=== PATIENT | female | born 1955 | race Caucasian/White ===

== ENCOUNTER 2024-01-14 14:26 | Outpatient (CLI) | payer MEDICARE, SELFPAY ==
--- NOTE | 2024-01-14 16:01 | WPDPFTINT ---
PFT Procedure Performed PFT Procedure Performed Plethysmography (Lung Vol) Diffusing Cap (DLCO) Flow Vol Loop Spirometry w/o Bronchodil PFT Interpretation This is a pulmonary function test with spirometry, plethysmography and diffusing capacity. The test was performed and results interpreted in accordance with the 2019 and 2005 ATS/ERS Task Force guidelines respectively using the Global Lung Function Initiative-2012 reference equations. Patient demonstrated good effort and cooperation. Reproducibility criteria were met. The quality of the spirometry maneuver was Grade B. Findings: Spirometry: There is decreased maximal expiratory airflow at all lung volumes with concave expiratory flow tracing. The contour the inspiratory flow tracing is normal. The FVC is 2.31 L, 76% predicted. The FEV1 is 1.31 L, 55% predicted. The FEV1: FVC ratio is 57%. Plethysmography: The total lung capacity is 4.96 L, 95% predicted. The functional residual capacity is 2.22 L, 75% predicted. The residual volume is 2.20 L, 101% predicted. Diffusing capacity: The diffusing capacity unadjusted for hemoglobin and carboxyhemoglobin is 11.1, 52% predicted. The diffusing capacity adjusted for alveolar volume is 2.64, 62% predicted. Impression: There is a moderately severe obstructive abnormality. The lung volumes are normal. The diffusing capacity unadjusted for hemoglobin and carboxyhemoglobin is moderately decreased and remains mildly decreased when adjusted for alveolar volume. There are no prior studies for comparison
== END 2024-01-14 14:27 | disposition home or self-care (01) ==
LOC: ANHPFT 14:28
PROVIDERS: PCP Internal Medicine; Visit Provider Internal Medicine
DX: J44.9 Chronic obstructive pulmonary disease, unspecified (principal)
CPT/HCPCS: 94375; 94726; 94729

== ENCOUNTER 2024-03-02 07:59 | Outpatient (CLI) | payer MEDICARE, SELFPAY ==
--- NOTE | 2024-03-06 18:00 | WPDSIXMINUTE ---
Six Minute Walk Procedure Procedure Performed Pulmonary Stress Test (6 min walk) Six Minute Walk Six Minute Walk: DATE OF SERVICE: 03/02/2024 REQUESTING: Dimitri Parry MD REASON FOR TESTING: COPD SIX MINUTE WALK This test was conducted per ATS guidelines. The patient was breathing room air and did not use a cane or other assist devices while walking. The initial saturation was 95%, and initial heart rate was 68 beats per minute. The patient walked without stopping, completing 365.6 m, 1200 ft. The saturation at the end of testing was 91%, and the heart rate was 89 beats per minute. The dyspnea/fatigue score was 2 at the beginning and at the end of testing. IMPRESSION: This is a normal study. The patient did not require supplemental oxygen with exertion. The distance walked is adequate for the patient's age. Kirsten Brown MD
== END 2024-03-02 08:00 | disposition home or self-care (01) ==
LOC: ANHPFT 08:01
PROVIDERS: PCP Internal Medicine; Visit Provider Internal Medicine
DX: J44.9 Chronic obstructive pulmonary disease, unspecified (principal)
CPT/HCPCS: 94618

== ENCOUNTER 2024-03-17 09:23 | Outpatient (CLI) | payer MEDICARE, SELFPAY ==
--- OUTSIDE RECORDS SUMMARY | 2024-03-24 23:44 | XMS_ITS | Encounter Summary ---
Author Organization [facility] Address [address] [place] [place] [address] Care Team Providers Care Quantitative Analyst Developer Name Role Phone Dimitri Parry MD Primary Care Provider [phone] Encounter Details Date Type Department Care Team (Late st Contact Info) Description 09/10/2022 9:45 AM CDT Office Visit [facility] - Orthopedics [address] [place] [address], [facility] [address] Shai Greene MD [address] [place] [address] OF ORTHOPEDIC SURGERY [place], [place] [id number] Other closed displaced fracture of distal end of right humerus with routine healing, subsequent encounter (Primary Dx) Social History Tobacco Use Types Packs/Day Years Used Date Smoking Tobacco: Every Day Cigarettes Smokeless Tobacco: Never AUDIT-C Answer Date Recorded Q1: How often do you have a drink containing alcohol? Never 04/21/2022 Q2: How many drinks containi ng alcohol do you have on a typical day when you are drinking? Patient does not drink Q3: How often do you have si x or more drinks on one occasion? Never 04/21/2022 Sex and Gender Information Value Date Recorded Sex Assigned at Not on file Gender Identity Not on file Sexual Orientation Not on file documented as of this encounter Progress Notes * Shai Greene MD - 09/10/2022 2:07 PM CDT Orthopaedic Trauma Surgery Clinic Note America Cloud 67 year old female CSN: [id number] Date of service: 09/10/2022 HPI America Cloud is a 67 year old female who had a right distal bicondylar intra-articular transcondylar humerus fracture status post ORIF with olecranon osteotomy She has no new no new complaints today and previously was complaining of lateral hardware pain however today does not appear to be as prominent. Is here for final check out to see if she needs to follow-up and continue physical therapy 09/10/2022 10:26 AM Patient-Reported Satisfaction Current state satisfactory? Yes Prior treatment? Yes - surgery Function since surgery Improved Currently taking narcotics? Yes 09/10/2022 10:27 AM 07/23/2022 10:16 AM 06/25/2022 10:19 AM 05/28/2022 10:00 AM PROMIS Upper Extremity PROMIS UE Function Score 28 (severe dysfunction) 35 (moderate dysfunction) 32 (moderate dysfunction) 32 (moderate dysfunction) 09/10/2022 10:28 AM 07/23/2022 10:17 AM 06/25/2022 10:19 AM 05/28/2022 10:01 AM PROMIS Pain Interference PROMIS PI Score 62 (moderate) 56 (mild) 47 (within normal limits) 47 (within normal limits) Review of Systems A complete organ system review completed and is only significant for . Medical History No past medical history on file. Non-contributory Surgical History Past Surgical History: Procedure Laterality Date ??? HUMERAL FRACTURE REPAIR Right 04/21/2022 Right; OPEN REDUCTION INTERNAL FIXATION (ORIF) RIGHT HUMERUS ??? Osteotomy Right 04/21/2022 Right; OSTEOTOMY HUMERUS Non-contributory MEDICATIONS Current Outpatient Medications on File Prior to Visit Medication Sig Dispense Refill ??? buPROPion SR 12hr (Wellbutrin-SR) 150 MG tablet Take 1 (one) tablet by mouth 2 times daily ??? cyclobenzaprine (Flexeril) 5 MG tablet Take 1 (one) tablet by mouth 3 times daily as needed 20 tablet 0 ??? FLUoxetine (PROzac) 40 MG capsule Take 2 (two) capsules by mouth once daily ??? fluticasone propionate (Flonase) 50 MCG/ACT nasal spray [place] 1 (one) spray into the nose once daily as needed ??? losartan (Cozaar) 100 MG tablet Take 1 (one) tablet by mouth once daily ??? montelukast (Singulair) 10 MG tablet Take 1 (one) tablet by mouth once daily ??? omeprazole (PriLOSEC) 20 MG capsule Take 1 (one) capsule by mouth at bedtime ??? oxybutynin CR 24hr (Ditropan-XL) 10 MG tablet Take 1 (one) tablet by mouth once daily No current facility-administered medications on file prior to visit. Allergies No Known Allergies Family History family history is not on file. Non-contributory Social History Social History Tobacco Use ??? Smoking status: Every Day Types: Cigarettes ??? Smokeless tobacco: Never Substance Use Topics ??? Alcohol use: Not on file Physical Exam There were no vitals taken for this visit. General exam: patient cooperative with exam Constitutional: well developed, well nourished, no acute distress Head: normocephalic, atraumatic ENT: moist oral mucosa Eyes: non-icteric sclera Cardiovascular: regular rate Respiratory: effort normal, no respiratory distress Neurological: awake, AOx4 Psychiatric: no distress, mood and affect normal, behavior normal, judgment and thought content normal. Exam of the right elbow demonstrates excellent range of motion she can flex to 95-100 degrees with extension to -10 and when she pushes it she can get down to -5. There is no hardware irritation except over the olecranon plate the lateral column plate did have some irritation but this has smoothed over given the fact she did develop some HO over this region. Neurovascular exam is intact no issues noted Imaging Results independently reviewed in clinic. XR {fracture is completely healed she has developed some HO over the lateral column which is overlying plates excellent range of motion and maintenance of the ulnar trochlear joint and radiocapitellar joint is noted no hardware issues are present Assessment and Plan No diagnosis found. This is a 67 year old female who is over 6 months status post ORIF right distal humerus fracture 1. Ms. Cloud was counseled as to her diagnosis 2. Images reviewed in office with patient 3. She demonstrated understanding 4. We have discussed herShe will call in the interi she will continue to gain motion for additional2-3 months however takes almost a year before she will max out. 5. I expect her to have some permanent restriction in elbow extension and should gain a few more degrees of flexion currently she is functional 6. 7. She can discontinue physical therapy with her current prescription and then progress to exercises on her own. 8. 9. We will do 10. However the she can return with any questions or concerns. Shai Greene MD 09/10/2022 2:07 PM * Celina Buckner - 09/10/2022 10:02 AM CDT Follow up for a Right distal humerus fracture and was treated with ORIF on 04/23/[address] Greene. Patient was last seen in clinic on 07/23/2022. documented in this encounter Plan of Treatment Not on file documented as of this encounter Visit Diagnoses Diagnosis Other closed displaced fracture of distal end of right humerus with routine healing, subsequent encounter- Primary documented in this encounter Care Teams Quantitative Analyst Developer Relationship Specialty Start Date End Date Dimitri Parry MD PCP - General Internal Medicine 04/21/22 documented as of this encounter
--- OUTSIDE RECORDS SUMMARY | 2024-03-24 23:44 | XMS_ITS | Patient Health Summary ---
Author Organization [facility] Address [address] [place] [address] Care Team Providers Care Assembler Tester Name Role Phone Dimitri Parry MD Primary Care Provider [phone] Note from [facility],non-owned Affiliates and Associated Physician Practices is amultiple site organization consisting of ambulatory clinics and hospital sitesin [place], [place], [place] and [place]. This disclosure is being madepursuant to the Care Everywhere program and may not contain all information available regarding this patient. Last updated 17.[facility] Allergies No known active allergies Medications * Be aware that medications may not be up to date on this document. Alwaysverify current medications with the patient. * buPROPion SR 12hr (Wellbutrin-SR) 150 MG tablet(Started 04/14/2022) Take 1 (one) tablet by mouth 2 times daily * FLUoxetine (PROzac) 40 MG capsule(Started 04/12/2022) Take 2 (two) capsules by mouth once daily * fluticasone propionate (Flonase) 50 MCG/ACT nasal spray [place] 1 (one) spray into the nose once daily as needed * losartan (Cozaar) 100 MG tablet(Started 03/04/2022) Take 1 (one) tablet by mouth once daily * montelukast (Singulair) 10 MG tablet(Started 04/15/2022) Take 1 (one) tablet by mouth once daily * omeprazole (PriLOSEC) 20 MG capsule Take 1 (one) capsule by mouth at bedtime * oxybutynin CR 24hr (Ditropan-XL) 10 MG tablet(Started 04/14/2022) Take 1 (one) tablet by mouth once daily * cyclobenzaprine (Flexeril) 5 MG tablet(Started 04/23/2022) Take 1 (one) tablet by mouth 3 times daily as needed Active Problems Problem Noted Date Diagnosed Date Fall, initial encounter 04/21/2022 Other closed displaced fract ure of distal end of right humerus, initial encounter 04/21/2022 Essential hypertension 04/21/2022 Social History Tobacco Use Types Packs/Day Years Used Date Smoking Tobacco: Every Day Cigarettes Smokeless Tobacco: Never Tobacco Cessation:Ready to Q uit: Not Asked; Counseling Given: Not Answered AUDIT-C Answer Date Recorded Q1: How often [...] on file Sexual Orientation Not on file Last Filed Vital Signs Vital Sign Reading Time Taken Comments Blood Pressure 148/79 04/23/2022 11:47 AM SOCK BOARDER Pulse 74 04/23/2022 11:47 AM SOCK BOARDER Temperature 36.9 ??C (98.4 ??F) 04/23/2022 11:[address] Respiratory Rate 18 04/23/2022 11:47 AM SOCK BOARDER Oxygen Saturation 94% 04/23/2022 11:47 AM SOCK BOARDER Inhaled Oxygen Concentration - - Weight 77.1 kg (170 lb) 07/23/2022 10:13 AM CDT Height 165.1 cm (5' 5 ) 04/30/2022 9:32 AM SOCK BOARDER Body Mass Index 28.29 04/30/2022 9:32 AM SOCK BOARDER Medical Devices Implanted Type Area Peanut Picker Device Identifier Shelf Expiration Date Model / Serial / Lot Pin Fx 50mm 1.5mm Spn Plla Rsrb Slf Implanted:Qty: 2 on 04/21/2022 by Shai Greene MD at [facility] Right: Humerus [employer] Lynnette 08/29/2026 [id number] / / [id number] 3.5mm Screw 26mm Implanted:Qty: 1 on 04/21/2022 by Shai Greene MD at [facility] Right: Humerus [employer] [id number] / / 3.5mm Screw 20mm Implanted:Qty: 1 on 04/21/2022 by Shai Greene MD at [facility] Right: Humerus [employer] [id number] / / 3.5mm Screw 26mm Implanted:Qty: 1 on 04/21/2022 by Shai Greene MD at [facility] Right: Humerus [employer] [id number] / / 3.5mm Screw 30mm Implanted:Qty: 1 on 04/21/2022 by Shai Greene MD at [facility] Right: Humerus [employer] [id number] / / 3.5mm Screw 32mm Implanted:Qty: 2 on 04/21/2022 by Shai Greene MD at [facility] Right: Humerus [employer] [id number] / / 3.5mm Screw 58mm Implanted:Qty: 1 on 04/21/2022 by Shai Greene MD at [facility] Right: Humerus [employer] [id number] / / Screw 2mm 3mm 18mm T6 Slf-Tap Cortx Evos Implanted:Qty: 1 on 04/21/2022 by Shai Greene MD at [facility] Right: Humerus [employer] [id number] / / 2.0 X 28mm Double Washer Implanted:Qty: 1 on 04/21/2022 by Shai Greene MD at [facility] Right: Humerus [employer] [id number] / / 3.5mm 22mm Screw Implanted:Qty: 1 on 04/21/2022 by Shai Greene MD at [facility] Right: Humerus [employer] [id number] / / Screw 3.5mm 22mm Slf-Tap Cortx Evos Strl Implanted:Qty: 1 on 04/21/2022 by Shai Greene MD at [facility] [id number] / / Screw 2.7mm 4.5mm 28mm T8 2mm Slf-Tap Implanted:Qty: 1 on 04/21/2022 by Shai Greene MD at [facility] [id number] / / Screw 2.7mm 4.5mm 32mm T8 2mm Slf-Tap Implanted:Qty: 1 on 04/21/2022 by Shai Greene MD at [facility] [id number] / / Screw 2.7mm 4.5mm 48mm T7 Slfret Scrdrvr Implanted:Qty: 1 on 04/21/2022 by Shai Greene MD at [facility] [id number] / / Olecranon Plate Implanted:Qty: 1 on 04/21/2022 by Shai Greene MD at [facility] [id number] / / Screw 2mm 3mm 18mm T6 Slf-Tap Cortx Evos Implanted:Qty: 1 on 04/21/2022 by Shai Greene MD at [facility] [id number] / / 2.0 X 28mm Double Washer Implanted:Qty: 1 on 04/21/2022 by Shai Greene MD at [facility] [id number] / / Screw 2mm 3mm 28mm T6 Slfret Scrdrvr Implanted:Qty: 1 on 04/21/2022 by Shai Greene MD at [facility] [id number] / / Plate 9 Hl Lopro Prox Blt Tip Implanted:Qty: 1 on 04/21/2022 by Shai Greene MD at [facility] [employer] [id number] / / Screw 3.5mm 18mm Ft Slf-Tap Hex Lopro Implanted:Qty: 1 on 04/21/2022 by Shai Greene MD at [facility] [employer] [id number] / / Screw 2.7mm 4.5mm 38mm T8 Slf-Tap Cortx Implanted:Qty: 1 on 04/21/2022 by Shai Greene MD at [facility] Right: Humerus [employer] [id number] / / Screw 4mm 20mm Ft Osteopenia [place] Ft Implanted:Qty: 1 on 04/21/2022 by Shai Greene MD at [facility] Right: Humerus [employer] Tra[employer] [id number] / / Screw 3.5mm 22mm Slf-Tap Cortx Evos Strl Implanted:Qty: 1 on 04/21/2022 by Shai Greene MD at [facility] Right: Humerus [employer] [id number] / / Screw 3.5mm 20mm Ft Hex Drv Nlckg Elb Implanted:Qty: 2 on 04/21/2022 by Shai Greene MD at [facility] Right: Humerus [employer] [id number] / / Screw 3.5mm 28mm Ft Nonlock Hex Drv Elb Implanted:Qty: 1 on 04/21/2022 by Shai Greene MD at [facility] Right: Humerus [employer] [id number] / / Rt Small Plate Distal Hum Implanted:Qty: 1 on 04/21/2022 by Shai Greene MD at [facility] Right: Humerus [employer] [id number] / / Explanted Type Area Peanut Picker Device Identifier Shelf Expiration Date Model / Serial / Lot 3.5mm 26mm Screw Explanted:Qty: 1 on 04/21/2022 by Shai Greene MD at [facility] Right: Humerus [employer] [id number] / / Screw 2.7mm 4.5mm 20mm T7 Slfret Scrdrvr Explanted:Qty: 1 on 04/21/2022 by Shai Greene MD at [facility] Right: Humerus [employer] [id number] / / Wire K 1.6mm 6in Hlf Byapoorva Pnt Ss Fx Explanted:Qty: 1 on 04/21/2022 by Shai Greene MD at [facility] Right: Humerus [employer] [id number] / / Procedures * XR ELBOW RIGHT 3VW OR MORE(Performed 09/10/2022) Performed for Other closed displaced fracture of distal end of right humerus with routine healing, subsequent encounter * XR ELBOW RIGHT 3VW OR MORE(Performed 07/23/2022) Performed for Other closed displaced fracture of distal end of right humerus, initial encounter * XR ELBOW RIGHT 3VW OR MORE(Performed 06/25/2022) Performed for Other closed displaced fracture of distal end of right humerus with routine healing, subsequent encounter * XR ELBOW RIGHT 3VW OR MORE(Performed 05/28/2022) Performed for Other closed displaced fracture of distal end of right humerus with routine healing, subsequent encounter * XR ELBOW RIGHT 3VW OR MORE(Performed 04/30/2022) Performed for Other closed displaced fracture of distal end of right humerus, initial encounter * XR ELBOW RIGHT 2VW(Performed 04/23/2022) Performed for Fall, initial encounter * CBC W/O DIFFERENTIAL(Performed 04/23/2022) Performed for Fall, initial encounter * BASIC METABOLIC PANEL (CALCIUM TOTAL)(Performed 04/22/2022) Performed for Fall, initial encounter * CBC W/O DIFFERENTIAL(Performed 04/22/2022) Performed for Fall, initial encounter * BLOOD TYPE VERIFICATION(Performed 04/21/2022) * XR ELBOW RIGHT 3VW OR MORE(Performed 04/21/2022) Performed for Fall, initial encounter * FL AMBER SURGERY(Performed 04/21/2022) Performed for Other closed displaced fracture of distal end of right humerus, initial encounter * PERIPHERAL BLOCK(Performed 04/21/2022) * RI OSTEOTOMY HUMERUS(Performed 04/21/2022) Performed for Closed fracture of distal end of right humerus, unspecified fracture morphology, initial encounter * OPEN REDUCTION INTERNAL FIXATION (ORIF) HUMERUS(Performed 04/21/2022) Performed for Closed fracture of distal end of right humerus, unspecified fracture morphology, initial encounter * ENDOTRACHEAL TUBE NOTE(Performed 04/21/2022) * CT ELBOW RIGHT WO CONTRAST(Performed 04/21/2022) Performed for Other closed displaced fracture of distal end of right humerus, initial encounter * XR CHEST 1VW PORTABLE(Performed 04/21/2022) Performed for Fall, initial encounter * TYPE + SCREEN PANEL(Performed 04/21/2022) Performed for Fall, initial encounter * PTT [facility](Performed 04/21/2022) Performed for Fall, initial encounter * PT-INR [facility](Performed 04/21/2022) Performed for Fall, initial encounter * BASIC METABOLIC PANEL (CALCIUM TOTAL)(Performed 04/21/2022) Performed for Fall, initial encounter * CBC W/O DIFFERENTIAL(Performed 04/21/2022) Performed for Fall, initial encounter * ED MODERATE SEDATION(Performed 04/21/2022) Performed for Fall, initial encounter, Other closed displaced fracture of distal end of right humerus, initial encounter, Essential hypertension * XR ELBOW RIGHT 2VW(Performed 04/21/2022) Performed for Fall, initial encounter * XR STRESS ANY JOINT(Performed 04/21/2022) Performed for Fall, initial encounter * XR HUMERUS RIGHT 2VW OR MORE(Performed 04/21/2022) Performed for Fall, initial encounter * XR ELBOW RIGHT 2VW(Performed 04/21/2022) Performed for Fall, initial encounter Results * XR ELBOW RIGHT 3VW OR MORE (09/10/2022 9:59 AM CDT) Only the most recent of6 resultswithin the time period is included. Anatomical Region Laterality Modality Upper Extremity Radiographic Davida ging 09/10/2022 9:59 AM CDT Impressions 09/10/2022 10:44 AM CDT IMPRESSION: Unchanged osseous alignment. Report dictated by Alex Orozco MD (radiology interventional physician). I, Benjamin Barillas MD have personally reviewed and interpreted this examination/study. > Interpreting Provider: Benjamin Barillas MD on 09/10/2022 10:44 AM Narrative 09/10/2022 10:44 AM CDT PROCEDURE: ??XR ELBOW RIGHT 3VW OR MORE, DATE/TIME OF EXAM: ??09/10/2022 9:59 AM, LOCATION ??[facility] INDICATION: S42.491D: Other closed displaced fracture of distal end of right humerus with routine healing, subsequent encounter ADDITIONAL CLINICAL INFORMATION: Ordering Provider Reason For Exam: ??fracture Technologist Note: Additional: COMPARISON: Elbow radiograph dated 07/23/2022 FINDINGS: Fracture of the distal humerus status post posterior and medial plate and screw fixation is redemonstrated unchanged alignment. Proximal ulnar fracture status post plate and screw fixation is unchanged in alignment. The hardware is intact. ?? Soft tissue swelling has decreased since the prior study. Procedure Note Benjamin Barillas MD - 09/10/2022 PROCEDURE: XR ELBOW RIGHT 3VW OR MORE, DATE/TIME OF EXAM: 39:59 AM, LOCATION [facility] INDICATION: S42.491D: Other closed displaced fracture of distal end of right humerus with routine healing, subsequent encounter ADDITIONAL CLINICAL INFORMATION: Ordering Provider Reason For Exam: fracture Technologist Note: Additional: COMPARISON: Elbow radiograph dated 07/23/2022 FINDINGS: Fracture of the distal humerus status post posterior and medial plateand screw fixation is redemonstrated unchanged alignment. Proximal ulnar fracture status post plate and screw fixation is unchanged in alignment. The hardware is intact. Soft tissue swelling has decreased since the prior study. IMPRESSION: Unchanged osseous alignment. Report dictated by Alex Orozco MD (radiology interventional physician). I, Benjamin Barillas MD have personally reviewed and interpreted this examination/study. > Interpreting Provider: Benjamin Barillas MD on 09/10/2022 10:44 AM Shai Greene MD DIAGNOSTIC IMAGING O RDERABLES * XR ELBOW RIGHT 2VW (04/23/2022 8:53 AM SOCK BOARDER) Only the most recent of3 resultswithin the time period is included. Anatomical Region Laterality Modality Upper Extremity Radiographic Davida ging 04/24/2022 10:4 0 AM SOCK BOARDER Narrative 04/24/2022 2:24 PM SOCK BOARDER PROCEDURE: ??XR ELBOW RIGHT 2VW, DATE/TIME OF EXAM: ??04/23/2022 8:54 AM, LOCATION ??[facility] INDICATION: W19.XXXA: Fall, initial encounter COMPARISON: Multiple prior right elbow radiographs most recently dated 04/21/2022 FINDINGS/IMPRESSION: Cast/splint is present which limits evaluation of the fine bony and soft tissue details. Redemonstration of the comminuted intra-articular fracture of the distal humerus involving the trochlea and capitellum status post reduction and fixation using multiple plates and screws. Hardware appears intact. Alignment is unchanged. Posterior surgical leighann are again seen. Surgical drain has been removed. Report dictated by Víctor Jaramillo MD, MD (radiology interventional physician). Chema Oro MD have personally reviewed and interpreted this examination/study. > Interpreting Provider: Chema Grady MD on 04/24/2022 2:24 PM Procedure Note Sheree Grady MD - 04/24/2022 PROCEDURE: XR ELBOW RIGHT 2VW, DATE/TIME OF EXAM: 04/23/2022 8:54 AM, LOCATION [facility] INDICATION: W19.XXXA: Fall, initial encounter COMPARISON: Multiple prior right elbow radiographs most recently dated 04/21/2022 FINDINGS/IMPRESSION: Cast/splint is present which limits evaluation of the fine bony and soft tissue details. Redemonstration of the comminuted intra-articular fracture of the distal humerus involving the trochlea and capitellum status post reduction and fixation using multiple plates and screws. Hardware appears intact. Alignment is unchanged. Posterior surgical leighann are again seen.Surgical drain has been removed. Report dictated by Víctor Jaramillo MD, MD (radiology interventional physician). Chema Oro MD have personally reviewed and interpreted this examination/study. > Interpreting Provider: Chema Grady MD on 04/24/2022 2:24 PM Shai Pang MD DIAGNOSTIC IMAGING O RDERABLES * (ABNORMAL) CBC W/O DIFFERENTIAL (04/23/2022 3:29 AM SOCK BOARDER) Only the most recent of3 resultswithin the time period is included. WBC 9.5 3.5 - 10.5 10? 3 /uL 04/23/2022 3:53 AM [facility] RBC 3.39(L) 3.80 - 5.20 10? 6 /uL 04/23/2022 3:53 AM [facility] Hemoglobin 9.8(L) 12.0 - 15.6 g/dL 04/23/2022 3:53 AM [facility] Hematocrit 30.7(L) 35.0 - 45.0 % 04/23/2022 3:53 AM [facility] MCV 90.6 80.7 - 98.3 fL 04/23/2022 3:53 AM [facility] MCH 28.9 26.7 - 34.0 pg 04/23/2022 3:53 AM [facility] MCHC 31.9 30.8 - 35.9 g/dL 04/23/2022 3:53 AM [facility] RDW-SD 46.1 36.0 - 50.0 fL 04/23/2022 3:53 AM [facility] RDW-CV 14.0 11.2 - 14.8 % 04/23/2022 3:53 AM [facility] Platelet Count 200 150 - 400 10? 3 /uL 04/23/2022 3:53 AM [facility] MPV 9.8 9.4 - 12.9 fL 04/23/2022 3:53 AM [facility] nRBC Absolute 0.00 0 10? 3 /uL 04/23/2022 3:53 AM [facility] nRBC Auto 0.0 0 /100 WBC 04/23/2022 3:53 AM [facility] Blood BLOOD SPECIMEN / Unknown Lab Venipuncture / Unknown 04/23/2022 3:29 AM SOCK BOARDER 04/23/2022 3:39 AM [facility] Felton Donahue MD LAB - HEMATOLOGY ORD ERABLES Performing Organization Address [facility]/State/ZIP Co de Phone Number [facility] [address] [place] [id number], [facility] [phone] * (ABNORMAL) BASIC METABOLIC PANEL (CALCIUM TOTAL) (04/22/2022 1:11 AM SOCK BOARDER) Only the most recent of2 resultswithin the time period is included. BUN 14 7 - 26 mg/dL 04/22/2022 2:43 AM [facility] Creatinine 0.67 0.56 - 0.96 mg/dL 04/22/2022 2:43 AM [facility] Sodium 137 136 - 145 mmol/L 04/22/2022 2:43 AM [facility] Potassium 4.3 3.5 - 4.5 mmol/L 04/22/2022 2:43 AM [facility] Chloride 101 98 - 107 mmol/L 04/22/2022 2:43 AM [facility] CO2 24 22 - 29 mmol/L 04/22/2022 2:43 AM [facility] Glucose 196(H) 70 - 115 mg/dL 04/22/2022 2:43 AM [facility] Calcium 8.7 8.4 - 10.2 mg/dL 04/22/2022 2:43 AM [facility] Anion Gap 16 8 - 18 04/22/2022 2:43 AM [facility] BUN/Creatinine Ratio 21 7 - 23 04/22/2022 2:43 AM [facility] Osmolality Calculated 290 270 - 300 mOsm/kg 04/22/2022 2:43 AM [facility] eGFR by CKD-EPI >90 >=90 mL/min/1.7 3 m2 04/22/2022 2:43 AM [facility] Blood BLOOD SPECIMEN / Unknown Lab Venipuncture / Unknown 04/22/2022 1:11 AM SOCK BOARDER 04/22/2022 2:20 AM SOCK BOARDER Felton Donahue MD LAB - CHEMISTRY [facility] GARRETT [address] [address], [facility] [phone] * BLOOD TYPE VERIFICATION (04/21/2022 11:18 PM SOCK BOARDER) ABO Rh A NEG 04/21/2022 11:52 PM SOCK BOARDER [facility] B[facility] LAB Blood Bank BLOOD SPECIMEN / Unknown Lab Venipuncture / Unknown 04/21/2022 11:18 PM SOCK BOARDER 04/21/2022 11:30 PM SOCK BOARDER Denisse Veras MD LAB - BLOOD BANK ORD MOHIT [facility] BLOOD [facility] LAB [address] [place] [id number], [place] [phone] * FL AMBER SURGERY (04/21/2022 7:18 PM SOCK BOARDER) Narrative [facility] RADIOLOGY - 04/21/2022 7:20 PM SOCK BOARDER Fluoroscopy was used for this exam in the OR. Please see the Operative report. Shai Greene MD FLUOROSCOPY ORDERABL ES [facility] RADIOLOGY * Peripheral Nerve Block (04/21/2022 3:41 PM SOCK BOARDER) Narrative Thomas Orta MD - 04/21/2022 3:41 PM SOCK BOARDER Chris Fitzgerald MD ? 04/21/2022 ??3:45 PM Peripheral ??Nerve Block ?? Procedure: Peripheral Nerve Block Patient Location: ??Pre-op Preprocedure Section: ?? Indications: procedure for pain, postop pain management, at patient's request and at surgeon's request. Pre-anesthetic Checklist: Patient identified, IV Checked, Site examined and clear, Risks and benefits discussed, Surgical consent verified, Monitors and equipment, Time-out performed, Informed consent obtained, Pre-op evaluation done, Questions answered/anesthesia questions answered, Allergies reviewed and Removal hand/wrist jewelry Monitors: BP, Pulse Ox and EKG. Patient Condition: ??awake Patient Position: sitting Patient Sedated? ??No Procedure Section ?? Laterality: right Block Performed: ??interscalene Prep: ??Chloraprep Strerile Field: gloves, mask, hat/cap, patient draped and sterile ultrasound sleeve Skin localized with: lidocaine (XYLOCAINE) 1 % injection - Infiltration 1 mL - 04/21/2022 2:26:00 PM Needle Type: ??Echogenic insultaed and Touhbrigid Needle Gauge: ??20 Needle Length: ??100 mm Catheter? Yes Ultrasound Guided? ?? Yes ? Technique: ??in plane ? Visualization: ??Preliminary scan performed, Important anatomical structures identified, Needle tip visualized throughout the procedure, Target identified, No intraneural or intravascular puncture occurred, Ultrasound image in chart, Local visualized surrounding nerve on ultrasound and Hydrodissection utilized Injection was made incrementally with constant monitoring and aspirations every 5 mL's Injection Assessment: ?? Slow fractionated injection Block Agents or Additives used? Yes Block agents used: bupivacaine PF (MARCAINE PF) 0.25 % injection - Infiltration 15 mL - 04/21/2022 2:35:00 PM lidocaine (XYLOCAINE) 2 % injection - Infiltration 5 mL - 04/21/2022 2:35:00 PM Procedure Tolerance: tolerated well Assessment: completed Procedure Start Time: 04/21/2022 2:26 PM. Procedure End Time: 04/21/2022 2:40 PM. Procedure Total Time: 14 ??minutes. Staff Section ? Anesthesia Provider: Thomas Orta MD, Performed the procedure ? Provider #1: Chris Fitzgerald MD, Performed the procedure. Thomas Orta MD GENERAL ANESTHESIA O RDERABLES * ETT LINE PERFORMABLE (04/21/2022 3:03 PM SOCK BOARDER) Narrative Thomas Orta MD - 04/21/2022 3:03 PM SOCK BOARDER Juan Dorsey V., DO ? 04/21/2022 ??3:15 PM Endotracheal Tube Placement: ? Patient Location: OR. Intubation Event Date/Time: ??04/21/2022 3:03 PM Procedure: intubation (89701). Procedure Section: ?? Sedation: under general anesthesia. Indications for Airway Management: ??anesthesia Procedure pretreatments used? ??No Induction: standard IV Patient Position: ??supine Mask Ventilation: easy. Blade Type: Zachary Blade Size: 3 Laryngoscopy View: grade 2 (partial cords) Intubation Adjuncts: stylet Tube: endotracheal tube Placement: oral Tube type: cuff - inflated Tube Size (MM): 7 Depth of Insertion (CM): 21 Measured From: lips Cuff volume (mL): ??6 Cuff Inflated With: air Number of Attempts: 1. Placement Verified By: direct visualization, bilateral breath sounds, chest auscultation and CO2 monitor CXR Findings: ETT in proper place. Tube secured with: ??adhesive tape. Dentition unchanged? ??Yes Difficult Airway? ??No. Procedure Start Time: 04/21/2022 3:03 PM. Staff Section ? Provider #1: Parag Schroeder DO, Performed the procedure. Thomas Orta MD GENERAL ANESTHESIA O RDERABLES * CT ELBOW RIGHT WO CONTRAST (04/21/2022 6:36 AM SOCK BOARDER) Anatomical Region Laterality Modality Upper Extremity Computed Tomogra phy 04/21/2022 6:45 AM SOCK BOARDER Impressions 04/21/2022 8:33 AM SOCK BOARDER IMPRESSION: 1.Comminuted moderately displaced intra-articular fracture of the distal humerus. 2.Suspected small chip fracture at the olecranon process. 3.Mild elbow subluxation. 4.Right rib fracture. > Dictated by Luis Silva MD (radiology interventional physician) I, Benjamin Barillas MD have personally reviewed and interpreted this examination/study. > Interpreting Provider: Benjamin Barillas MD on 04/21/2022 8:33 AM Narrative 04/21/2022 8:33 AM SOCK BOARDER PROCEDURE: ??CT ELBOW RIGHT WO CONTRAST, DATE/TIME OF EXAM: ??04/21/2022 6:36 AM, LOCATION ??[facility] INDICATION: S42.491A: Other closed displaced fracture of distal end of right humerus, initial encounter ADDITIONAL CLINICAL INFORMATION: Ordering Provider Reason For Exam: ??fracture s/p reduction COMPARISON: Right elbow radiograph 04/21/2022 at 2:20 AM. Outside right elbow CT dated 04/20/2022 TECHNIQUE: CT of the right elbow without contrast was performed utilizing standard protocol. FINDINGS: A splint is in place. Comminuted moderately displaced intra-articular fracture of the distal humerus involving the trochlea and capitellum. Alignment is improved compared to the prior CT. A small ossific fragment adjacent to the olecranon process is likely a fracture (series 5 image 82). There is slight ventral subluxation of the radial head relative to the capitellum. Small volume joint effusion is noted. There is surrounding edema. There is high attenuation material within the dorsal subcutaneous tissues compatible with hemorrhage. A right rib fracture is visible (series 4 image 4). Procedure Note Benjamin Barillas MD - 04/21/2022 PROCEDURE: CT ELBOW RIGHT WO CONTRAST, DATE/TIME OF EXAM: 36:36 AM, LOCATION [facility] INDICATION: S42.491A: Other closed displaced fracture of distal end of righthumerus, initial encounter ADDITIONAL CLINICAL INFORMATION: Ordering Provider Reason For Exam: fracture s/p reduction COMPARISON: Right elbow radiograph 04/21/2022 at 2:20 AM. Outside right elbow CTdated 04/20/2022 TECHNIQUE: CT of the right elbow without contrast was performed utilizing standard protocol. FINDINGS: A splint is in place. Comminuted moderately displaced intra-articular fracture of the distal humerus involving the trochlea and capitellum. Alignment is improved compared to the prior CT. A small ossific fragment adjacent to the olecranon process is likely a fracture (series 5 image 82). There isslight ventral subluxation of the radial head relative to the capitellum. Small volume joint effusion is noted. There is surrounding edema. There ishigh attenuation material within the dorsal subcutaneous tissues compatiblewith hemorrhage. A right rib fracture is visible (series 4 image 4). IMPRESSION: 1.Comminuted moderately displaced intra-articular fracture of the distal humerus. 2.Suspected small chip fracture at the olecranon process. 3.Mild elbow subluxation. 4.Right rib fracture. > Dictated by Luis Silva MD (radiology interventional physician) I, Benjamin Barillas MD have personally reviewed and interpreted this examination/study. > Interpreting Provider: Benjamin Barillas MD on 04/21/2022 8:33 AM Felton Donahue MD CT ORDERABLES * XR CHEST 1VW PORTABLE (04/21/2022 6:26 AM SOCK BOARDER) Anatomical Region Laterality Modality Chest Radiographic Davida ging 04/21/2022 6:27 AM SOCK BOARDER Narrative 04/21/2022 8:49 AM SOCK BOARDER PROCEDURE: ??XR CHEST 1VW PORTABLE, DATE/TIME OF EXAM: ??04/21/2022 6:26 AM, LOCATION ??[facility] INDICATION: W19.XXXA: Fall, initial encounter ADDITIONAL CLINICAL INFORMATION: Ordering Provider Reason For Exam: ??fall, right rib pain Comparison: No prior study is available for comparison at the time of this dictation. Findings/Impression: There is mild bibasilar atelectasis. The appearance of mild bilateral peripheral interstitial opacities may be artifactual; attention on follow-up. There is no focal consolidation, pleural effusion, or pneumothorax. The cardiomediastinal silhouette is normal. The visible bony thorax is intact. Suture anchors are present at the right humeral head. Report dictated by Simin Mayes MD (radiology interventional physician). Funmilayo Oro MD have personally reviewed and interpreted this examination/study. > Interpreting Provider: Funmilayo Diaz MD on 04/21/2022 8:49 AM Procedure Note Funmilayo Diaz MD - 04/21/2022 PROCEDURE: XR CHEST 1VW PORTABLE, DATE/TIME OF EXAM: 04/21/2022 6:26AM, LOCATION [facility] INDICATION: W19.XXXA: Fall, initial encounter ADDITIONAL CLINICAL INFORMATION: Ordering Provider Reason For Exam: fall, right rib pain Comparison: No prior study is available for comparison at the time ofthis dictation. Findings/Impression: There is mild bibasilar atelectasis. The appearance of mild bilateral peripheral interstitial opacities may be artifactual; attention on follow-up. There is no focal consolidation, pleural effusion, or pneumothorax. The cardiomediastinal silhouette is normal. The visiblebony thorax is intact. Suture anchors are present at the right humeral head. Report dictated by Simin Mayes MD (radiology interventional physician). Funmilayo Oro MD have personally reviewed and interpreted this examination/study. > Interpreting Provider: Funmilayo Diaz MD on 04/21/2022 8:49 AM Felton Donahue MD DIAGNOSTIC IMAGING O RDERABLES * PTT [facility] (04/21/2022 3:45 AM SOCK BOARDER) APTT 30.1 23.0 - 38.4 Seconds 04/21/2022 4:21 AM SOCK BOARDER [facility] Comment:Suggested therapeuti c range for full dose I.V. unfractionated heparin therapy for venous thromboembolism is 71 to 109 seconds. Blood BLOOD SPECIMEN / Unknown Venipuncture / Unknown 04/21/2022 3:45 AM SOCK BOARDER 04/21/2022 3:54 AM SOCK BOARDER Felton Donahue MD LAB - COAGULATION OR DERABLES [facility] [address] [place] [address], [facility] [phone] * PT-INR [facility] (04/21/2022 3:45 AM SOCK BOARDER) PT 13.5 12.1 - 14.8 Seconds 04/21/2022 4:20 AM [facility] INR 1.0 See Comment 04/21/2022 4:20 AM [facility] Comment:The suggested therap eutic range for standard coumadin (warfarin) therapy is an INR of 2.0-3.0. For high-risk patients (Mechanical Mitral Valve Prosthesis, etc.), the suggested prophylactic therapeutic range is an INR of 2.5-3.5. Blood BLOOD SPECIMEN / Unknown Venipuncture / Unknown 04/21/2022 3:45 AM SOCK BOARDER 04/21/2022 3:54 AM SOCK BOARDER Felton Donahue MD LAB - COAGULATION OR DERABLES Performing Organization Address City/[facility]/ZIP Co de Phone Number [address] [address], [facility] [phone] * TYPE + SCREEN PANEL (04/21/2022 3:45 AM SOCK BOARDER) Antibody Screen NEG 5:04 AM [facility] ABO Rh A NEG 04/21/2022 5:04 AM [facility] Blood Bank BLOOD SPECIMEN / Unknown Venipuncture / Unknown 04/21/2022 3:45 AM SOCK BOARDER 04/21/2022 3:54 AM SOCK BOARDER Felton Donahue MD LAB - BLOOD BANK ORD ERABLES [facility] [address] [place] [address], [facility] [phone] * Moderate Sedation (04/21/2022 2:33 AM SOCK BOARDER) Narrative Felton Donahue MD - 04/21/2022 2:33 AM SOCK BOARDER Felton Donahue MD ? 04/21/2022 ??7:00 AM Moderate Sedation Date/Time: 04/21/2022 2:33 AM Performed by: Felton Donahue MD Authorized by: Felton Donahue MD Consent: ??Consent obtained: ??Verbal and written ??Consent given by: ??Patient ??Risks, benefits, and alternatives were discussed: yes ?Risks discussed: ??Allergic reaction, inadequate sedation, nausea, vomiting, prolonged hypoxia resulting in organ damage, prolonged sedation necessitating reversal and respiratory compromise necessitating ventilatory assistance and intubation ??Alternatives discussed: ??Analgesia without sedation and anxiolysis Healy protocol: ??Procedure explained and questions answered to patient or proxy's satisfaction: yes ?Relevant documents present and verified: yes ?Test results available: yes ?Imaging studies available: yes ?Required blood products, implants, devices, and special equipment available: yes ?Site/side marked: yes ?Immediately prior to procedure, a time out was called: yes ?Patient identity confirmed: ??Verbally with patient and arm band Indications: ??Procedure performed: ??Fracture reduction ??Procedure necessitating sedation performed by: ??Physician performing sedation ??Intended level of sedation: ??Moderate Pre-sedation assessment: ??Time since last food or drink: ??9 hours ??ASA classification: class 2 - patient with mild systemic disease ?Mallampati score: ??II - soft palate, uvula, fauces visible ??Neck mobility: normal ?Pre-sedation assessments completed and reviewed: airway patency, anesthesia/sedation history, cardiovascular function, hydration status, mental status, nausea/vomiting, pain level and respiratory function ?History of difficult intubation: no ?Pre-sedation assessment completed: ??04/21/2022 1:30 AM Immediate pre-procedure details: ??Reassessment: Patient reassessed immediately prior to procedure ?Reviewed: vital signs ?Verified: bag valve mask available, emergency equipment available, intubation equipment available, IV patency confirmed and oxygen available ?? Procedure details (see MAR for exact dosages): ??Sedation start time: ??04/21/2022 1:57 AM ??Preoxygenation: ??Nasal cannula ??Sedation: ??Propofol (ketamine and propofol) ??Intra-procedure monitoring: ??Blood pressure monitoring, monitoring manager, continuous capnometry, continuous pulse oximetry, frequent LOC assessments and frequent vital sign checks ??Intra-procedure events: hypoxia ?Intra-procedure events comment: ??Patient with brief episode of shallow breathing with saturation down to 88 with first medications given, corrected with jaw thrust ??Intra-procedure management: ??Airway repositioning (patient had jaw thrust during brief desaturation) ??Sedation end time: ??04/21/2022 2:27 AM ??Total sedation time (minutes): ??30 Post-procedure details: ??Post-sedation assessment completed: ??04/21/2022 2:37 AM ??Attendance: Constant attendance by certified staff until patient recovered ?Recovery: Patient returned to pre-procedure baseline ?Post-sedation assessments completed and reviewed: airway patency, cardiovascular function, hydration status, mental status, nausea/vomiting, pain level and respiratory function ?Specimens recovered: ??None ??Patient is stable for discharge or admission: yes ?Procedure completion: ??Tolerated well, no immediate complications Felton Donahue MD PROCEDURE/MINOR SURG ICAL ORDERABLES * XR STRESS ANY JOINT (04/21/2022 2:06 AM SOCK BOARDER) Anatomical Region Laterality Modality Lower Extremity, Upper Extremity Radiographic Imaging 04/21/2022 1:46 AM SOCK BOARDER Impressions 04/21/2022 8:44 AM SOCK BOARDER IMPRESSION: Moderately displaced, comminuted fracture of the distal humerus extending from the medial epicondyle to the articular surface. Tiny ossific fragment adjacent to the olecranon may represent tendinous calcification versus a small avulsion fracture. Report dictated by Simin Mayes MD (radiology interventional physician). I, Funmilayo Diaz MD have personally reviewed and interpreted this examination/study. > Interpreting Provider: Funmilayo Diaz MD on 04/21/2022 8:44 AM Narrative 04/21/2022 8:44 AM SOCK BOARDER PROCEDURE: ??XR HUMERUS RIGHT 2VW OR MORE, XR ELBOW RIGHT 2VW, XR STRESS ANY JOINT, DATE/TIME OF EXAM: ??04/21/2022 1:36 AM, LOCATION ??[facility] INDICATION: W19.XXXA: Fall, initial encounter ADDITIONAL CLINICAL INFORMATION: Ordering Provider Reason For Exam: ??Trauma (accession [id number]), Trauma (accession [id number]), trauma (accession [id number]) COMPARISON: None. FINDINGS: Right humerus: There is moderately displaced, comminuted fracture of the distal humerus extending from the medial epicondyle to the articular surface. Suture anchors are present in the humeral head. No dislocation. Bone density and texture are normal. Right elbow: There is moderately displaced, comminuted fracture of the distal humerus extending from the medial epicondyle to the articular surface. A tiny ossific fragment adjacent to the olecranon may represent tendinous calcification versus a small avulsion fracture. The elbow joint alignment is anatomical. No joint effusion is seen. Bone density and texture are normal. Moderate to severe soft tissue swelling is present. Stress: No significant change in alignment with stress. Procedure Note Funmilayo Diaz MD - 04/21/2022 PROCEDURE: XR HUMERUS RIGHT 2VW OR MORE, XR ELBOW RIGHT 2VW, XR STRESSANY JOINT, DATE/TIME OF EXAM: 04/21/2022 1:36 AM, LOCATION [facility] INDICATION: W19.XXXA: Fall, initial encounter ADDITIONAL CLINICAL INFORMATION: Ordering Provider Reason For Exam: Trauma (accession [id number]), Trauma (accession [id number]), trauma (accession [id number]) COMPARISON: None. FINDINGS: Right humerus: There is moderately displaced, comminuted fracture of the distal humerus extending from the medial epicondyle to the articular surface. Suture anchors are present in the humeral head. No dislocation. Bone densityand texture are normal. Right elbow: There is moderately displaced, comminuted fracture of the distal humerus extending from the medial epicondyle to the articular surface. A tiny ossific fragment adjacent to the olecranon may represent tendinous calcification versus a small avulsion fracture. The elbow jointalignment is anatomical. No joint effusion is seen. Bone density and texture are normal. Moderate to severe soft tissue swelling is present. Stress: No significant change in alignment with stress. IMPRESSION: Moderately displaced, comminuted fracture of the distal humerusextending from the medial epicondyle to the articular surface. Tiny ossific fragment adjacent to the olecranon may represent tendinous calcification versus a small avulsion fracture. Report dictated by Simin Mayes MD (radiology interventional physician). Funmilayo Oro MD have personally reviewed and interpreted this examination/study. > Interpreting Provider: Funmilayo Diaz MD on 04/21/2022 8:44 AM Felton Donahue MD DIAGNOSTIC IMAGING O RDERABLES * XR HUMERUS RIGHT 2VW OR MORE (04/21/2022 1:35 AM SOCK BOARDER) Anatomical Region Laterality Modality Upper Extremity Radiographic Davida ging 04/21/2022 1:46 AM SOCK BOARDER Impressions 04/21/2022 8:44 AM SOCK BOARDER IMPRESSION: Moderately displaced, comminuted fracture of the distal humerus extending from the medial epicondyle to the articular surface. Tiny ossific fragment adjacent to the olecranon may represent tendinous calcification versus a small avulsion fracture. Report dictated by Simin Mayes MD (radiology interventional physician). Funmilayo Oro MD have personally reviewed and interpreted this examination/study. > Interpreting Provider: Funmilayo Diaz MD on 04/21/2022 8:44 AM Narrative 04/21/2022 8:44 AM SOCK BOARDER PROCEDURE: ??XR HUMERUS RIGHT 2VW OR MORE, XR ELBOW RIGHT 2VW, XR STRESS ANY JOINT, DATE/TIME OF EXAM: ??04/21/2022 1:36 AM, LOCATION ??[facility] INDICATION: W19.XXXA: Fall, initial encounter ADDITIONAL CLINICAL INFORMATION: Ordering Provider Reason For Exam: ??Trauma (accession [id number]), Trauma (accession [id number]), trauma (accession [id number]) COMPARISON: None. FINDINGS: Right humerus: There is moderately displaced, comminuted fracture of the distal humerus extending from the medial epicondyle to the articular surface. Suture anchors are present in the humeral head. No dislocation. Bone density and texture are normal. Right elbow: There is moderately displaced, comminuted fracture of the distal humerus extending from the medial epicondyle to the articular surface. A tiny ossific fragment adjacent to the olecranon may represent tendinous calcification versus a small avulsion fracture. The elbow joint alignment is anatomical. No joint effusion is seen. Bone density and texture are normal. Moderate to severe soft tissue swelling is present. Stress: No significant change in alignment with stress. Procedure Note Funmilayo Diaz MD - 04/21/2022 PROCEDURE: XR HUMERUS RIGHT 2VW OR MORE, XR ELBOW RIGHT 2VW, XR STRESSANY JOINT, DATE/TIME OF EXAM: 04/21/2022 1:36 AM, LOCATION [facility] INDICATION: W19.XXXA: Fall, initial encounter ADDITIONAL CLINICAL INFORMATION: Ordering Provider Reason For Exam: Trauma (accession [id number]), Trauma (accession [id number]), trauma (accession [id number]) COMPARISON: None. FINDINGS: Right humerus: There is moderately displaced, comminuted fracture of the distal humerus extending from the medial epicondyle to the articular surface. Suture anchors are present in the humeral head. No dislocation. Bone densityand texture are normal. Right elbow: There is moderately displaced, comminuted fracture of the distal humerus extending from the medial epicondyle to the articular surface. A tiny ossific fragment adjacent to the olecranon may represent tendinous calcification versus a small avulsion fracture. The elbow jointalignment is anatomical. No joint effusion is seen. Bone density and texture are normal. Moderate to severe soft tissue swelling is present. Stress: No significant change in alignment with stress. IMPRESSION: Moderately displaced, comminuted fracture of the distal humerusextending from the medial epicondyle to the articular surface. Tiny ossific fragment adjacent to the olecranon may represent tendinous calcification versus a small avulsion fracture. Report dictated by Simin Mayes MD (radiology interventional physician). I, Funmilayo Diaz MD have personally reviewed and interpreted this examination/study. > Interpreting Provider: Funmilayo Diaz MD on 04/21/2022 8:44 AM Felton Donahue MD [facility] Assembler Tester Relationship Specialty Start Date End Date Dimitri Parry MD PCP - General Internal Medicine 04/21/22
--- OUTSIDE RECORDS SUMMARY | 2024-03-24 23:44 | XMS_ITS | Clinical Summary ---
Author Organization [facility] Address [address] [place] [address] Care Team Providers Care Heel Sprayer First Name Role Phone Dimitri Parry MD Primary Care Provider [phone] Source Comments [facility],non-owned Affiliates and Associated Physician Practices is amultiple site organization consisting of ambulatory clinics and hospital sitesin [place], [place], [place] and [place]. This disclosure is being madepursuant to the Care Everywhere program and may not contain all information available regarding this patient. Last updated 17.[facility] [employer] Allergies No known active allergies Medications * Be aware that medications may not be up to date on this document. Alwaysverify current medications with the patient. Medication Sig Dispensed Refills Start Date End Date Status buPROPion SR 12hr (Wellbutrin-SR) 150 MG tablet Take 1 (one) tablet by mouth 2 times daily 04/14/2022 Active FLUoxetine (PROzac) 40 MG capsule Take 2 (two) capsules by mouth once daily 04/12/2022 Active fluticasone propionate (Flonase) 50 MCG/ACT nasal spray [place] 1 (one) spray into the nose once daily as needed Active losartan (Cozaar) 100 MG tablet Take 1 (one) tablet by mouth once daily 03/04/2022 Active montelukast (Singulair) 10 MG tablet Take 1 (one) tablet by mouth once daily 04/15/2022 Active omeprazole (PriLOSEC) 20 MG capsule Take 1 (one) capsule by mouth at bedtime Active oxybutynin CR 24hr (Ditropan-XL) 10 MG tablet Take 1 (one) tablet by mouth once daily 04/14/2022 Active cyclobenzaprine (Flexeril) 5 MG tablet Take 1 (one) tablet by mouth 3 times daily as needed 20 tablet 04/23/2022 Active Active Problems Problem Noted Date Diagnosed Date [...] Comments Blood Pressure 148/79 04/23/2022 11:47 AM PRODUCT DISTRIBUTION SPECIALIST Pulse 74 04/23/2022 11:47 AM PRODUCT DISTRIBUTION SPECIALIST Temperature 36.9 ??C (98.4 ??F) 04/23/2022 11:[address] Respiratory Rate 18 04/23/2022 11:47 AM PRODUCT DISTRIBUTION SPECIALIST Oxygen Saturation 94% 04/23/2022 11:47 AM PRODUCT DISTRIBUTION SPECIALIST Inhaled Oxygen Concentration - - Weight 77.1 kg (170 lb) 07/23/2022 10:13 AM CDT Height 165.1 cm (5' 5 ) 04/30/2022 9:32 AM PRODUCT DISTRIBUTION SPECIALIST Body Mass Index 28.29 04/30/2022 9:32 AM PRODUCT DISTRIBUTION SPECIALIST Plan of Treatment Health Maintenance Due Date Last Done Comments BONE DENSITY TESTING 1956 DENISHA (AGES 45-75) - COL ON CA SCREENING 1956 COLON MONITORING 1956 COLONOSCOPY - COLON CA SCREENING 1956 CT COLONOGRAPHY - COLON CA SCREENING 1956 Colorectal Cancer Screening 1956 FIT - COLON CA SCREENING 1956 FLEX SIG - COLON CA SCREENING 1956 LIPID TESTING 1956 MAMMOGRAM 1956 PNEUMOCOCCAL VACCINE 65+ (1 of 2 - PCV) 1962 HEPATITIS C SCREENING 07/09/1974 DTAP/TDAP/TD VACCINES (1 - Tdap) 07/14/1975 ZOSTER VACCINE (1 of 2) 2006 Respiratory Syncytial Virus (RSV) Vaccine Pt: or over 60 yrs (1 - Risk 60-74 years 1-dose series) 2016 DEPRESSION SCREENING 03/23/2023 COVID-19 VACCINE (1 - 2023-2 5 season) 2023 INFLUENZA VACCINE (#1) 2023 SCREENING FOR DIABETES 04/22/2025 3, 04/21/2022 HEPATITIS B VACCINE Aged Out No longe r eligible based on patient's age to complete this topic HIB VACCINE Aged Out No longer eligi ble based on patient's age to complete this topic HPV VACCINE Aged Out No longer eligi ble based on patient's age to complete this topic MENINGOCOCCAL VACCINE Aged Out No ana laura manuela eligible based on patient's age to complete this topic Medical Devices Implanted Type Area Accessibility Lift Technician Device Identifier Shelf Expiration Date Model / Serial / Lot Pin Fx 50mm 1.5mm Spn Plla Rsrb Slf Implanted:Qty: 2 on 04/21/2022 by Shai Greene MD at [facility] Right: Humerus [employer] Lynnette 08/29/2026 [id number] / / [id number] 3.5mm Screw 26mm Implanted:Qty: 1 on 04/21/2022 by Shai Greene MD at [facility] Right: Humerus [employer] [id number] / / 3.5mm Screw 20mm Implanted:Qty: 1 on 04/21/2022 by Shai Greene MD at [facility] Right: Humerus [employer] [id number] / / 3.5mm Screw 26mm Implanted:Qty: 1 on 04/21/2022 by Shai Greene MD at [facility] Right: Humerus [employer] [id number] / / 3.5mm Screw 30mm Implanted:Qty: 1 on 04/21/2022 by Shai Greene MD at [facility] Right: Humerus [employer] [id number] / / 3.5mm Screw 32mm Implanted:Qty: 2 on 04/21/2022 by Shai Greene MD at [facility] Right: Humerus [employer] [id number] / / 3.5mm Screw 58mm Implanted:Qty: 1 on 04/21/2022 by Shai Greene MD at [facility] Right: Humerus [employer] [id number] / / Screw 2mm 3mm 18mm T6 Slf-Tap Cortx Evos Implanted:Qty: 1 on 04/21/2022 by Shai Greene MD at [facility] Right: Humerus [employer] [id number] / / 2.0 X 28mm Double Washer Implanted:Qty: 1 on 04/21/2022 by Shai Greene MD at [facility] Right: Humerus [employer] [id number] / / 3.5mm 22mm Screw Implanted:Qty: 1 on 04/21/2022 by Shai Greene MD at [facility] Right: Humerus [employer] [id number] / / Screw 3.5mm 22mm Slf-Tap Cortx Evos Strl Implanted:Qty: 1 on 04/21/2022 by Shai Greene MD at [facility] [employer] [id number] / / Screw 2.7mm 4.5mm 28mm T8 2mm Slf-Tap Implanted:Qty: 1 on 04/21/2022 by Shai Greene MD at [facility] [employer] [id number] / / Screw 2.7mm 4.5mm 32mm T8 2mm Slf-Tap Implanted:Qty: 1 on 04/21/2022 by Shai Greene MD at [facility] [employer] [id number] / / Screw 2.7mm 4.5mm 48mm T7 Slfret Scrdrvr Implanted:Qty: 1 on 04/21/2022 by Shai Greene MD at [facility] [employer] [id number] / / Olecranon Plate Implanted:Qty: 1 on 04/21/2022 by Shai Greene MD at [facility] [id number] / / Screw 2mm 3mm 18mm T6 Slf-Tap Cortx Evos Implanted:Qty: 1 on 04/21/2022 by Shai Greene MD at [facility] [employer] [id number] / / 2.0 X 28mm Double Washer Implanted:Qty: 1 on 04/21/2022 by Shai Greene MD at [facility] [id number] / / Screw 2mm 3mm 28mm T6 Slfret Scrdrvr Implanted:Qty: 1 on 04/21/2022 by Shai Greene MD at [facility] [employer] [id number] / / Plate 9 Hl Lopro Prox Blt Tip Implanted:Qty: 1 on 04/21/2022 by Shai Greene MD at [facility] [employer] [id number] / / Screw 3.5mm 18mm Ft Slf-Tap Hex Lopro Implanted:Qty: 1 on 04/21/2022 by Shai Greene MD at [facility] [employer] [id number] / / Screw 2.7mm 4.5mm 38mm T8 Slf-Tap Cortx Implanted:Qty: 1 on 04/21/2022 by Shai Greene MD at [facility] Right: Humerus [employer] [id number] / / Screw 4mm 20mm Ft Osteopenia Jackson Ft Implanted:Qty: 1 on 04/21/2022 by Shai Greene MD at [facility] Right: Humerus [employer] Tra[employer] [id number] / / Screw 3.5mm 22mm Slf-Tap Cortx Evos Strl Implanted:Qty: 1 on 04/21/2022 by Shai Greene MD at [facility] Right: [employer]umerus [employer] [id number] / / Screw 3.5mm 20mm Ft Hex Drv Nlckg Elb Implanted:Qty: 2 on 04/21/2022 by Shai Greene MD at [facility] Right: Humerus [employer] [id number] / / Screw 3.5mm 28mm Ft Nonlock Hex Drv Elb Implanted:Qty: 1 on 04/21/2022 by Shai Greene MD at [facility] Right: Humerus [employer] [id number] / / Rt Small Plate Distal Hum Implanted:Qty: 1 on 04/21/2022 by Shai Greene MD at [facility] Right: Humerus [employer] [id number] / / Explanted Type Area Accessibility Lift Technician Device Identifier Shelf Expiration Date Model / Serial / Lot 3.5mm 26mm Screw Explanted:Qty: 1 on 04/21/2022 by Shai Greene MD at [facility] Right: Humerus [employer] [id number] / / Screw 2.7mm 4.5mm 20mm T7 Slfret Scrdrvr Explanted:Qty: 1 on 04/21/2022 by Shai Greene MD at [facility] Right: Humerus [employer] [id number] / / Wire K 1.6mm 6in Hlf Bynt Pnt Ss Fx Explanted:Qty: 1 on 04/21/2022 by Shai Greene MD at [facility] Right: Humerus [employer] [id number] / / Procedures Procedure Name Priority Date/Time Associated Diagnosis Comments BASIC METABOLIC PANEL (CALCIUM TOTAL) Routine 04/22/2022 1:11 AM PRODUCT DISTRIBUTION SPECIALIST Fall, initial encounter from Last 3 Months or Most Recently Relevant to Health Maintenance Results * (ABNORMAL) BASIC METABOLIC PANEL (CALCIUM TOTAL) (04/22/2022 1:11 AM PRODUCT DISTRIBUTION SPECIALIST) BUN 14 7 - 26 mg/dL 04/22/2022 2:43 AM PRODUCT DISTRIBUTION SPECIALIST [facility] Creatinine 0.67 0.56 - 0.96 mg/dL 04/22/2022 2:43 AM PRODUCT DISTRIBUTION SPECIALIST [facility] Sodium 137 136 - 145 mmol/L 04/22/2022 2:43 AM [facility] Potassium 4.3 3.5 - 4.5 mmol/L 04/22/2022 2:43 AM [facility] Chloride 101 98 - 107 mmol/L 04/22/2022 2:43 AM [facility] CO2 24 22 - 29 mmol/L 04/22/2022 2:43 AM [facility] Glucose 196(H) 70 - 115 mg/dL 04/22/2022 2:43 AM [facility] Calcium 8.7 8.4 - 10.2 mg/dL 04/22/2022 2:43 AM [facility] Anion Gap 16 8 - 18 04/22/2022 2:43 AM [facility] BUN/Creatinine Ratio 21 7 - 23 04/22/2022 2:43 AM [facility] Osmolality Calculated 290 270 - 300 mOsm/kg 04/22/2022 2:43 AM [facility] eGFR by CKD-EPI >90 >=90 mL/min/1.7 3 m2 04/22/2022 2:43 AM [facility] Blood BLOOD SPECIMEN / Unknown Lab Venipuncture / Unknown 04/22/2022 1:11 AM PRODUCT DISTRIBUTION SPECIALIST 04/22/2022 2:20 AM [facility] Felton Donahue MD LAB - [facility] Address [facility]/State/ZIP Co de Phone Number [facility] [address] [place] [address] [phone] from Last 3 Months or Most Recently Relevant to Health Maintenance Advance Directives * Full Code (Latest Code Status on File) Date Activated Date Inactivated Comments 04/21/2022 6:02 AM 04/23/2022 7:00 PM Care Teams Heel Sprayer First Relationship Specialty Start Date End Date Dimitri Parry MD PCP - General Internal Medicine 04/21/22
--- OUTSIDE RECORDS SUMMARY | 2024-03-24 23:44 | XMS_ITS | Encounter Summary ---
Author Organization [facility] Address [address] [place] [address] Care Team Providers Care Energy Efficiency Engineer Name Role Phone Dimitri Parry MD Primary Care Provider [phone] Encounter Details Date Type Department Care Team (Late st Contact Info) Description 09/08/2022 Orders Only [facility] - Orthopedics [address] [place] [address], [facility] [place] [id number] Shai Greene MD [address] [place] [address] OF ORTHOPEDIC SURGERY [place], [place] [id number] Other closed displaced fracture of distal end of right humerus with routine healing, subsequent encounter Social History Tobacco Use Types Packs/Day Years [...] on file documented as of this encounter Plan of Treatment Not on file documented as of this encounter Results * XR ELBOW RIGHT 3VW OR MORE (09/10/2022 9:59 AM CDT) Anatomical Region Laterality Modality Upper Extremity Radiographic Davida ging 09/10/2022 9:59 AM CDT Impressions 09/10/2022 10:44 AM CDT IMPRESSION: Unchanged osseous alignment. Report dictated by Alex Orozco MD (radiology therapist). Benjamin Oro MD have personally reviewed and interpreted this examination/study. > Interpreting Provider: Benjamin Barillas MD on 09/10/2022 10:44 AM Narrative 09/10/2022 10:44 AM CDT PROCEDURE: ??XR ELBOW RIGHT 3VW OR MORE, DATE/TIME OF EXAM: ??09/10/2022 9:59 AM, LOCATION ??[facility] INDICATION: S42.491D: Other closed displaced fracture [...] MORE, DATE/TIME OF EXAM: 39:59 AM, LOCATION [facility] INDICATION: S42.491D: Other closed displaced fracture [...] Report dictated by Alex Orozco MD (radiology therapist). I, Benjamin Barillas MD have personally reviewed and interpreted this examination/study. > Interpreting Provider: Benjamin Barillas MD on 09/10/2022 10:44 AM Shai Greene MD DIAGNOSTIC IMAGING O RDERABLES documented in this encounter Visit Diagnoses Diagnosis Other closed displaced fracture of distal end of right humerus with routine healing, subsequent encounter- Primary Other closed displaced fracture of distal end of right humerus with routine healing, subsequent encounter documented in this encounter Care Teams Energy Efficiency Engineer Relationship Specialty Start Date End Date Dimitri Parry MD PCP - General Internal Medicine 04/21/22 documented as of this encounter
--- OUTSIDE RECORDS SUMMARY | 2024-03-24 23:44 | XMS_ITS | Encounter Summary ---
Author Organization [facility] Address [address] [place] [address] Care Team Providers Care Ropewalk Rope Maker Name Role Phone Dimitri Parry MD Primary Care Provider [phone] Encounter Details Date Type Department Care Team (Late st Contact Info) Description 09/10/2022 9:44 AM CDT - 09/10/2022 11:59 PM CDT Hospital Encounter [facility] DIAGNOSTIC RAD [facility] [address] [facility] [address] [facility] [place] [address] Shai Greene MD [facility] OF [place] [address] Discharge Disposition: Home or Self Care Social History Tobacco Use Types Packs/Day Years [...] on file documented as of this encounter Medications at Time of Discharge Medication Sig Dispensed Refills Start Date End Date buPROPion SR 12hr (Wellbutrin-SR) 150 MG tablet Take 1 (one) tablet by mouth 2 times daily 04/14/2022 cyclobenzaprine (Flexeril) 5 MG tablet Take 1 (one) tablet by mouth 3 times daily as needed 20 tablet 04/23/2022 FLUoxetine (PROzac) 40 MG capsule Take 2 (two) capsules by mouth once daily 04/12/2022 fluticasone propionate (Flonase) 50 MCG/ACT nasal spray [place] 1 (one) spray into the nose once daily as needed losartan (Cozaar) 100 MG tablet Take 1 (one) tablet by mouth once daily 03/04/2022 montelukast (Singulair) 10 MG tablet Take 1 (one) tablet by mouth once daily 04/15/2022 omeprazole (PriLOSEC) 20 MG capsule Take 1 (one) capsule by mouth at bedtime oxybutynin CR 24hr (Ditropan-XL) 10 MG tablet Take 1 (one) tablet by mouth once daily 04/14/2022 documented as of this encounter Plan of Treatment Not on file documented as of this encounter Procedures Procedure Name Priority Date/Time Associated Diagnosis Comments XR ELBOW RIGHT 3VW OR MORE Routine 09/10/2022 9:59 AM CDT Other closed displaced fracture of distal end of right humerus with routine healing, subsequent encounter documented in this encounter Results * XR ELBOW RIGHT 3VW OR MORE (09/10/2022 9:59 AM CDT) Anatomical Region Laterality Modality Upper Extremity Radiographic Davida ging 09/10/2022 9:59 AM CDT Impressions 09/10/2022 10:44 AM CDT IMPRESSION: Unchanged osseous alignment. Report dictated by Alex Orozco MD (vice president of operations). I, Benjamin Barillas MD have personally reviewed and interpreted this examination/study. > Interpreting Provider: Benjamin Barillas MD on 09/10/2022 10:44 AM Narrative 09/10/2022 10:44 AM CDT PROCEDURE: ??XR ELBOW RIGHT 3VW OR MORE, DATE/TIME OF EXAM: ??09/10/2022 9:59 AM, LOCATION ??[facility] INDICATION: S42.491D: Other closed displaced fracture [...] MORE, DATE/TIME OF EXAM: 39:59 AM, LOCATION [facility] INDICATION: S42.491D: Other closed displaced fracture [...] alignment. Report dictated by Alex Orozco MD (vice president of operations). I, Benjamin Barillas MD have personally reviewed and interpreted this examination/study. > Interpreting Provider: Benjamin Barillas MD on 09/10/2022 10:44 AM Shai Greene MD DIAGNOSTIC IMAGING O RDERABLES documented in this encounter Visit Diagnoses Diagnosis Other closed displaced fracture of distal end of right humerus with routine healing, subsequent encounter documented in this encounter Care Teams Ropewalk Rope Maker Relationship Specialty Start Date End Date Dimitri Parry MD PCP - General Internal Medicine 04/21/22 documented as of this encounter
--- OUTSIDE RECORDS SUMMARY | 2024-03-24 23:44 | XMS_ITS | Encounter Summary ---
Author Organization [facility] Address [address] [place] [address] Care Team Providers Care Home Insurance Agent Name Role Phone Dimitri Parry MD Primary Care Provider [phone] Encounter Details Date Type Department Care Team (Latest Contact Info) Description 09/10/2022 Travel Social History Tobacco Use Types Packs/Day Years [...] documented as of this encounter Visit Diagnoses Not on filedocumented in this encounter Care Teams Home Insurance Agent Relationship Specialty Start Date End Date Dimitri Parry MD PCP - General Internal Medicine 04/21/22 documented as of this encounter
--- OUTSIDE RECORDS SUMMARY | 2024-03-24 23:44 | XMS_ITS | Referral Summary ---
Author Organization [facility] Address [address] [place] [address] Care Team Providers Care Applications Administrator Name Role Phone Dimitri Parry MD Primary Care Provider [phone] Source Comments [facility],non-owned Affiliates and Associated Physician Practices is amultiple site organization consisting of ambulatory clinics and hospital sitesin [place], [place], [place] and [place]. This disclosure is being madepursuant to the Care Everywhere program and may not contain all information available regarding this patient. Last updated 17.[facility] [employer] Allergies No known active allergies Medications * [...] fluticasone propionate (Flonase) 50 MCG/ACT nasal spray [place] 1 (one) spray into the nose once [...] Comments Blood Pressure 148/79 04/23/2022 11:47 AM FIG BAR MACHINE OPERATOR Pulse 74 04/23/2022 11:47 AM FIG BAR MACHINE OPERATOR Temperature 36.9 ??C (98.4 ??F) 04/23/2022 11:[address] Respiratory Rate 18 04/23/2022 11:47 AM FIG BAR MACHINE OPERATOR Oxygen Saturation 94% 04/23/2022 11:47 AM FIG BAR MACHINE OPERATOR Inhaled Oxygen Concentration - - Weight 77.1 kg (170 lb) 07/23/2022 10:13 AM CDT Height 165.1 cm (5' 5 ) 04/30/2022 9:32 AM FIG BAR MACHINE OPERATOR Body Mass Index 28.29 04/30/2022 9:32 AM FIG BAR MACHINE OPERATOR Plan of Treatment Not on file Medical Devices Implanted Type Area Bakery Team Leader Device Identifier Shelf Expiration Date Model / Serial / Lot Pin Fx 50mm 1.5mm Spn Plla Rsrb Slf Implanted:Qty: 2 on 04/21/2022 by Shai Greene MD at [facility] Right: Humerus [employer] Lynnette 08/29/2026 [id number] / / [id number] 3.5mm Screw 26mm Implanted:Qty: 1 on 04/21/2022 by Shai Greene MD at [facility] Right: Humerus [employer] [id number] / / 3.5mm Screw 20mm Implanted:Qty: 1 on 04/21/2022 by Shai Greene MD at [facility] Right: Humerus [employer] [id number] / / 3.5mm Screw 26mm Implanted:Qty: 1 on 04/21/2022 by Shai Greene MD at [facility] Right: Humerus [employer] [id number] / / 3.5mm Screw 30mm Implanted:Qty: 1 on 04/21/2022 by Shai Greene MD at [facility] Right: Humerus [employer] [id number] / / 3.5mm Screw 32mm Implanted:Qty: 2 on 04/21/2022 by Shai Greene MD at [facility] Right: Humerus [employer] [id number] / / 3.5mm Screw 58mm Implanted:Qty: 1 on 04/21/2022 by Shai Greene MD at [facility] Right: Humerus [employer] [id number] / / Screw 2mm 3mm 18mm T6 Slf-Tap Cortx Evos Implanted:Qty: 1 on 04/21/2022 by Shai Greene MD at [facility] Right: Humerus [employer] [id number] / / 2.0 X 28mm Double Washer Implanted:Qty: 1 on 04/21/2022 by Shai Greene MD at [facility] Right: Humerus [employer] [id number] / / 3.5mm 22mm Screw Implanted:Qty: 1 on 04/21/2022 by Shai Greene MD at [facility] Right: Humerus [employer] [id number] / / Screw 3.5mm 22mm Slf-Tap Cortx Evos Strl Implanted:Qty: 1 on 04/21/2022 by [facility] at [facility] [id number] / / Screw 2.7mm 4.5mm 28mm T8 2mm Slf-Tap Implanted:Qty: 1 on 04/21/2022 by Shai Greene MD at [facility] [id number] / / Screw 2.7mm 4.5mm 32mm T8 2mm Slf-Tap Implanted:Qty: 1 on 04/21/2022 by Shai Greene MD at [facility] [id number] / / Screw 2.7mm 4.5mm 48mm T7 Slfret Scrdrvr Implanted:Qty: 1 on 04/21/2022 by Shai Greene MD at [facility] [id number] / / Olecranon Plate Implanted:Qty: 1 on 04/21/2022 by Shai Greene MD at [facility] [id number] / / Screw 2mm 3mm 18mm T6 Slf-Tap Cortx Evos Implanted:Qty: 1 on 04/21/2022 by Shai Greene MD at [facility] [id number] / / 2.0 X 28mm Double Washer Implanted:Qty: 1 on 04/21/2022 by Shai Greene MD at [facility] [id number] / / Screw 2mm 3mm 28mm T6 Slfret Scrdrvr Implanted:Qty: 1 on 04/21/2022 by Shai Greene MD at [facility] [id number] / / Plate 9 Hl Lopro Prox Blt Tip Implanted:Qty: 1 on 04/21/2022 by Shai Greene MD at [facility] [employer] [id number] / / Screw 3.5mm 18mm Ft Slf-Tap Hex Lopro Implanted:Qty: 1 on 04/21/2022 by Shai Greene MD at [facility] [employer] [id number] / / Screw 2.7mm 4.5mm 38mm T8 Slf-Tap Cortx Implanted:Qty: 1 on 04/21/2022 by Shai Greene MD at [facility] Right: Humerus [employer] [id number] / / Screw 4mm 20mm Ft Osteopenia [place] Ft Implanted:Qty: 1 on 04/21/2022 by Shai Greene MD at [facility] Right: Humerus [employer] Tra[employer] [id number] / / Screw 3.5mm 22mm Slf-Tap Cortx Evos Strl Implanted:Qty: 1 on 04/21/2022 by Sahi Greene MD at [facility] Right: Humerus [employer] [id number] / / Screw 3.5mm 20mm Ft Hex Drv Nlckg Elb Implanted:Qty: 2 on 04/21/2022 by Shai Greene MD at [facility] Right: Humerus [employer] [id number] / / Screw 3.5mm 28mm Ft Nonlock Hex Drv Elb Implanted:Qty: 1 on 04/21/2022 by Shai Greene MD at [facility] Right: Humerus [employer] [id number] / / Rt Small Plate Distal Hum Implanted:Qty: 1 on 04/21/2022 by Shai Greene MD at [facility] Right: Humerus [employer] [id number] / / Explanted Type Area Bakery Team Leader Device Identifier Shelf Expiration Date Model / Serial / Lot 3.5mm 26mm Screw Explanted:Qty: 1 on 04/21/2022 by Shai Greene MD at [facility] Right: Humerus [employer] [id number] / / Screw 2.7mm 4.5mm 20mm T7 Slfret Scrdrvr Explanted:Qty: 1 on 04/21/2022 by Shai Greene MD at [facility] Right: Humerus [employer] [id number] / / Wire K 1.6mm 6in Hlf Bynt Pnt Ss Fx Explanted:Qty: 1 on 04/21/2022 by Shai Greene MD at [facility] Right: Humerus [employer] [id number] / / Procedures Procedure Name Priority Date/Time Associated Diagnosis Comments BASIC METABOLIC PANEL (CALCIUM TOTAL) Routine 04/22/2022 1:11 AM FIG BAR MACHINE OPERATOR Fall, initial encounter from Last 3 Months or Most Recently Relevant to Health Maintenance Results * (ABNORMAL) BASIC METABOLIC PANEL (CALCIUM TOTAL) (04/22/2022 1:11 AM FIG BAR MACHINE OPERATOR) BUN 14 7 - 26 mg/dL 04/22/2022 2:43 AM [facility] Creatinine 0.67 0.56 - 0.96 mg/dL 04/22/2022 2:43 AM [facility] Sodium 137 136 - 145 mmol/L 04/22/2022 2:43 AM [facility] Potassium 4.3 3.5 - 4.5 mmol/L 04/22/2022 2:43 AM [facility] Chloride 101 98 - 107 mmol/L 04/22/2022 2:43 AM [facility] CO2 24 22 - 29 mmol/L 04/22/2022 2:43 AM [facility] Glucose 196(H) 70 - 115 mg/dL 04/22/2022 2:43 AM [facility] Calcium 8.7 8.4 - 10.2 mg/dL 04/22/2022 2:43 AM [facility] Anion Gap 16 8 - 18 04/22/2022 2:43 AM [facility] BUN/Creatinine Ratio 21 7 - 23 04/22/2022 2:43 AM [facility] Osmolality Calculated 290 270 - 300 mOsm/kg 04/22/2022 2:43 AM [facility] eGFR by CKD-EPI >90 >=90 mL/min/1.7 3 m2 04/22/2022 2:43 AM [facility] Blood BLOOD SPECIMEN / Unknown Lab Venipuncture / Unknown 04/22/2022 1:11 AM FIG BAR MACHINE OPERATOR 04/22/2022 2:20 AM [facility] Felton Donahue MD LAB - CHEMISTRY [place] Organization Address City/State/ZIP Co de Phone Number [facility] [address] [address], [facility] [phone] from Last 3 Months or Most Recently Relevant to Health Maintenance Advance Directives * Full Code (Latest Code Status on File) Date Activated Date Inactivated Comments 04/21/2022 6:02 AM 04/23/2022 7:00 PM Care Teams Applications Administrator Relationship Specialty Start Date End Date Dimitri Parry MD PCP - General Internal Medicine 04/21/22
--- OUTSIDE RECORDS SUMMARY | 2024-03-24 23:44 | XMS_ITS | Encounter Summary ---
Author Organization [facility] Address [address] [facility] [address] [place] [address] Care Team Providers Care Retaining Room Cutter Name Role Phone Dimitri Parry MD Primary Care Provider [phone] Encounter Details Date Type Department Care Team (Late st Contact Info) Description 07/23/2022 10:06 AM CDT - 07/23/2022 11:59 PM CDT Hospital Encounter [facility] DIAGNOSTIC RAD CSM [address] [facility] [facility] [place] [address] Shai Greene MD [facility] [facility] [place] [address] Discharge Disposition: Home or Self Care Social [...] fluticasone propionate (Flonase) 50 MCG/ACT nasal spray [place] 1 (one) spray into the nose once [...] XR ELBOW RIGHT 3VW OR MORE Routine 07/23/2022 10:11 AM CDT Other closed displaced fracture of distal end of right humerus, initial encounter documented in this encounter Results * XR ELBOW RIGHT 3VW OR MORE (07/23/2022 10:11 AM CDT) Anatomical Region Laterality Modality Upper Extremity Radiographic Davida ging 07/23/2022 10:3 4 AM CDT Impressions 07/23/2022 10:34 AM CDT IMPRESSION: Unchanged osseous alignment. > Interpreting Provider: Benjamin Barillas MD on 07/23/2022 10:34 AM Narrative 07/23/2022 10:34 AM CDT PROCEDURE: ??XR ELBOW RIGHT 3VW OR MORE DATE/TIME OF EXAM: ??07/23/2022 10:22 AM CLINICAL INFORMATION: None relevant/not provided if blank. Indication: S42.491A: Other closed displaced fracture of distal end of right humerus, initial encounter Additional History: COMPARISON: 06/25/2022 FINDINGS: Distal humeral fracture and proximal ulnar osteotomy with plate and screw fixation redemonstrated. The hardware is intact and the osseous alignment is unchanged. No dislocation. Mild soft tissue swelling. Procedure Note Benjamin Barillas MD - 07/23/2022 PROCEDURE: XR ELBOW RIGHT 3VW OR MORE DATE/TIME OF EXAM: 07/23/2022 10:22 AM CLINICAL INFORMATION: None relevant/not provided if blank. Indication: S42.491A: Other closed displaced fracture of distal end of right humerus, initial encounter Additional History: COMPARISON: 06/25/2022 FINDINGS: Distal humeral fracture and proximal ulnar osteotomy with plate andscrew fixation redemonstrated. The hardware is intact and the osseousalignment is unchanged. No dislocation. Mild soft tissue swelling. IMPRESSION: Unchanged osseous alignment. > Interpreting Provider: Benjamin Barillas MD on 07/23/2022 10:34 AM Shai Greene MD DIAGNOSTIC IMAGING O RDERABLES documented in this encounter Visit Diagnoses Diagnosis Other closed displaced fracture of distal end of right humerus, initial encounter documented in this encounter Care Teams Retaining Room Cutter Relationship Specialty Start Date End Date Dimitri Parry MD PCP - General Internal Medicine 04/21/22 documented as of this encounter
--- OUTSIDE RECORDS SUMMARY | 2024-03-24 23:45 | XMS_ITS | Encounter Summary ---
Author Organization [facility] Address [address] [place] [address] Care Team Providers Care Rag Grader Name Role Phone Dimitri Parry MD Primary Care Provider [phone] Encounter Details Date Type Department Care Team (Late st Contact Info) Description 07/16/2022 Orders Only [facility] - Orthopedics [address] [place] [address], [facility] [place] [id number] Shai Greene MD [address] [place] [address] OF ORTHOPEDIC SURGERY [place], [place] [id number] Other closed displaced fracture of distal end of right humerus, initial encounter Social History Tobacco Use Types Packs/Day [...] of distal end of right humerus, initial encounter- Primary Other closed displaced fracture of distal end of right humerus, initial encounter documented in this encounter Care Teams Rag Grader Relationship Specialty Start Date End Date Dimitri Parry MD PCP - General Internal Medicine 04/21/22 documented as of this encounter
--- OUTSIDE RECORDS SUMMARY | 2024-03-24 23:45 | XMS_ITS | Encounter Summary ---
Author Organization [facility] Address [address] [facility] [place] [address] Care Team Providers Care General Machinist Name Role Phone Dimitri Parry MD Primary Care Provider [phone] Encounter Details Date Type Department Care Team (Late st Contact Info) Description 05/28/2022 9:48 AM ELASTIC ASSEMBLER - 05/28/2022 11:59 PM [facility] Hospital Encounter [facility] DIAGNOSTIC RAD CSM [address] [facility]. [facility] [place] [address] Shai Greene MD [facility] [facility] [place] [address] Discharge Disposition: Home or Self Care Social [...] fluticasone propionate (Flonase) 50 MCG/ACT nasal spray [place] 1 (one) spray into the nose once [...] (one) tablet by mouth once daily 04/14/2022 oxyCODONE, immediate release, (Roxicodone) 5 MG tabletIndications:Fall, initial encounter Take 1 (one) tablet by mouth every 4 hours as needed 40 tablet 04/23/2022 06/25/2022 documented as of this encounter Plan of Treatment Not on file documented as of this encounter Procedures Procedure Name Priority Date/Time Associated Diagnosis Comments XR ELBOW RIGHT 3VW OR MORE Routine 05/28/2022 10:10 AM ELASTIC ASSEMBLER Other closed displaced fracture of distal end of right humerus with routine healing, subsequent encounter documented in this encounter Results * XR ELBOW RIGHT 3VW OR MORE (05/28/2022 10:10 AM ELASTIC ASSEMBLER) Anatomical Region Laterality Modality Upper Extremity Radiographic Davida ging 05/28/2022 10:1 7 AM ELASTIC ASSEMBLER Impressions 05/28/2022 10:38 AM ELASTIC ASSEMBLER IMPRESSION: Internal of humeral supracondylar fracture and proximal ulnar osteotomy, unchanged in alignment. Report dictated by Myron Perry MD (radiology aide). IBenjamin MD have personally reviewed and interpreted this examination/study. > Interpreting Provider: Benjamin Barillas MD on 05/28/2022 10:38 AM Narrative 05/28/2022 10:38 AM ELASTIC ASSEMBLER PROCEDURE: ??XR ELBOW RIGHT 3VW OR MORE, DATE/TIME OF EXAM: ??05/28/2022 9:48 AM, LOCATION ??[facility] INDICATION: S42.491D: Other closed displaced fracture of distal end of right humerus with routine healing, subsequent encounter ADDITIONAL CLINICAL INFORMATION: Ordering Provider Reason For Exam: ??fracture Technologist Note: Additional: COMPARISON: Right elbow radiograph from 04/30/2022. FINDINGS: Postsurgical changes reflecting open reduction and internal fixation of a comminuted intra-articular distal humeral fracture and proximal ulnar osteotomy with plates and screws are again demonstrated. The hardware is intact and the osseous alignment is unchanged. There is no dislocation. Soft tissue swelling is noted. Skin leighann removed. Procedure Note Benjamin Barillas MD - 05/28/2022 PROCEDURE: XR ELBOW RIGHT 3VW OR MORE, DATE/TIME OF EXAM: 39:48 AM, LOCATION [facility] INDICATION: S42.491D: Other closed displaced fracture of distal end of right humerus with routine healing, subsequent encounter ADDITIONAL CLINICAL INFORMATION: Ordering Provider Reason For Exam: fracture Technologist Note: Additional: COMPARISON: Right elbow radiograph from 04/30/2022. FINDINGS: Postsurgical changes reflecting open reduction and internal fixation ofa comminuted intra-articular distal humeral fracture and proximal ulnar osteotomy with plates and screws are again demonstrated. The hardware is intact and the osseous alignment is unchanged. There is no dislocation. Soft tissue swelling is noted. Skin leighann removed. IMPRESSION: Internal of humeral supracondylar fracture and proximal ulnar osteotomy, unchanged in alignment. Report dictated by Myron Perry MD (radiology aide). I, Benjamin Barillas MD have personally reviewed and interpreted this examination/study. > Interpreting Provider: Benjamin Barillas MD on 05/28/2022 10:38 AM Shai Greene MD DIAGNOSTIC IMAGING O RDERABLES documented in this encounter Visit Diagnoses Diagnosis Other closed displaced fracture of distal end of right humerus with routine healing, subsequent encounter documented in this encounter Care Teams General Machinist Relationship Specialty Start Date End Date Dimitri Parry MD PCP - General Internal Medicine 04/21/22 documented as of this encounter
--- OUTSIDE RECORDS SUMMARY | 2024-03-24 23:45 | XMS_ITS | Encounter Summary ---
Author Organization [facility] Address [address] [place] [address] Care Team Providers Care Foundry Helper Name Role Phone Dimitri Parry MD Primary Care Provider [phone] Encounter Details Date Type Department Care Team (Late st Contact Info) Description 06/25/2022 9:45 AM CDT Office Visit [facility] - Orthopedics [address] [place] [address], [facility] [place] [phone] Shai Greene MD [address] [place] [address] OF ORTHOPEDIC SURGERY [place], [place] [id number] Other closed displaced fracture of distal end of right humerus, initial encounter (Primary Dx) Social History Tobacco Use [...] on file documented as of this encounter Last Filed Vital Signs Vital Sign Reading Time Taken Comments Blood Pressure - - Pulse - - Temperature - - Respiratory Rate - - Oxygen Saturation - - Inhaled Oxygen Concentration - - Weight 77.1 kg (170 lb) 06/25/2022 10:14 AM CDT Height - - Body Mass Index 28.29 04/30/2022 9:32 AM LEASE EXAMINER documented in this encounter Patient Instructions * Patient Instructions* Rose Dickens MD - 06/25/2022 10:33 AM CDT Images from the original note were not included. Department of Orthopaedic Surgery America Dc Cloud 06/25/2022 Thank you for allowing us to care for you today. You were seen in clinic today for post-op follow up Please use this note as a school/work excuse: patient had appointment on 06/25/22 . Diagnosis: Other closed displaced fracture of distal end of right humerus, initial encounter Your weight bearing (WB) status will be NWB of the right upper extremity We recommend that you try the following for your injury: Activities as tolerated anti-inflammatory medications Monitor for signs of infection including increasing warmth, redness, pain, or drainage. OK to shower. Pat incision(s) dry after shower. No scrubbing. No soaking or submersion. Do not apply any ointments or lotions on the incision(s). Take a stool softener while you are on narcotics in order to avoid constipation. Examples: Colace (docusate), Senna (senokot), or Miralax (polyethylene glycol) - these can all be purchased [id number] at your local pharmacy. Swelling is normal after any injury and surgery. Elevate the affected extremity to help reduce swelling. Prescriptions: None Medications over the counter: - Acetaminophen (Tylenol) 500mg 1-2 tablets every 6 hours as needed for pain, not exceeding daily total of 4000mg. Please note that narcotic medications can consist of same ingredient. - Anti-inflammatory medications, such as Ibuprofen or Aleve, as needed for pain. Recommend the following to promote bone health: Multivitamin 1 tablet daily Vitamin D3 2000 IU 1 tablet daily Calcium 600mg with Vitamin D 400 IU 2 tablets daily Please make a follow up appointment for 1 months or if something about your condition significantlychanges. Please call the clinic if you have any questions. [facility] office contact information: [facility] ([facility]) - 1st Floor [address] [place] [address] For after hour concerns, please call and press 0 for the chocolate production machine operator in order to page the orthopedic resident receptionist telephone operator. Visit our website at [email or web address] for information about our practice and an interactive health encyclopedia. Please visit [email or web address] to access your health record, ask questions, request medication refills, and request appointments for non-urgent needs after you have configured your [employer] account. If you do not currently have access, please contact one of our staff members or call [phone]. documented in this encounter Progress Notes * Edei Johnson RN - 06/25/2022 3:30 PM CDT Patient continues to do well, improved elbow ROM noted. Occasional discomfort noted, takes OTC Tylenol PRN. Denies numbness, tingling, fever or chills. * Rose Dickens MD - 06/25/2022 10:17 AM CDT Orthopaedic Trauma Surgery Clinic Note America Cloud 66 year old female CSN: [id number] Date of service: 06/25/2022 Treatment History DOI: 04/21/22 GORDON: fall Injuries: Right distal humerus Surgeries: - 04/23/22: ORIF R distal humerus HPI America Cloud is a 66 year old female presents to clinic for follow up. She underwent the above surgery with Dr. Greene 8.5 weeks ago. Patient was last seen in clinic on 05/28/22. Patient states pain has been controlled. Pain is located in the R elbow and described as achy. The patient has beenNWB of the right upper extremity with HEB since she was last seen. Denies any recent fever or chills, tingling, numbness. Denies complications at incision site, including drainage, excessive swelling, fever, evidence of dehiscence. She is a 1/2 to 1 ppd smoker. 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 PROMS Questionnaire Patient-Reported Satisfaction 06/25/2022 Current state satisfactory? Yes Prior treatment? Yes - surgery Function since surgery Improved Currently taking narcotics? No PROMIS Upper Extremity 06/25/2022 05/28/2022 PROMIS UE Function Score 32 (moderate dysfunction) 32 (moderate dysfunction) PROMIS Pain Interference 06/25/2022 05/28/2022 PROMIS PI Score 47 (within normal limits) 47 (within normal limits) Review of Systems A complete organ system review completed and is only significant for what is documented in HPI. Allother systems reviewed are negative. Medical History No past medical history on file. Surgical History Past Surgical History: Procedure Laterality Date ??? HUMERAL FRACTURE REPAIR Right 04/21/2022 Right; OPEN REDUCTION INTERNAL FIXATION (ORIF) RIGHT HUMERUS ??? Osteotomy Right 04/21/2022 Right; OSTEOTOMY HUMERUS MEDICATIONS Current Outpatient Medications on File Prior [...] fluticasone propionate (Flonase) 50 MCG/ACT nasal spray [place] 1 (one) spray into the nose once [...] History family history is not on file. Social History Social History Tobacco Use ??? Smoking status: Every Day Types: Cigarettes ??? Smokeless tobacco: Never Substance Use Topics ??? Alcohol use: Not on file Physical Exam Wt 77.1 kg (170 lb) General exam: patient cooperative with exam Constitutional: well developed, well nourished, no acute distress Head: normocephalic, atraumatic ENT: moist oral mucosa Eyes: non-icteric sclera Cardiovascular: regular rate Respiratory: effort normal, no respiratory distress Neurological: awake, A&Ox4 Psychiatric: no distress, mood and affect normal, behavior normal, judgment and thought content normal. Right upper extremity: Incision: clean, dry, and intact without evidence of erythema, dehiscence, or drainage. There is no tenderness of the distal humerus or elbow. ROM of elbow is about 20-120. Nearly full pronosupination. Intact motor R/M/U/AIN/PIN, Sensation: intact to light touch in R/M/U nerve distributions distally, 2+ Radial pulse. Imaging I independently interpreted the following images and my findings are: XR 3 view(s) R elbow: Demonstrates good alignment with fixation. Hardware is intact with no evidence loosening or breakage. Assessment and Plan Other closed displaced fracture of distal end of right humerus, initial encounter This is a 66 year old female who is 8.5 weeks status post ORIF R distal humerus by Dr. Greene on 04/23/22. 1. Ms. Cloud was counseled as to her diagnosis and verbalizes understanding 2. Reviewed images with patient 3. The patient's weight bearing status will be WB <5lbs of the right upper extremity 4. Vitamin D and calcium supplementation for bone health 5. Work: unable to work 6. Prescriptions: none 7. Follow up in [address] Greene 8. XR needed at follow up: Yes - 3 view(s) XR of the R elbow 9. She will call in the interim with any questions or concerns. Rose Dickens MD 06/25/2022 10:34 AM Associated attestation - Shai Greene MD - 06/25/2022 4:00 PM CDT I have reviewed the history and pertinent physical findings on clinical exam of the patient. I agree with the residents assessment and I personally examined the patient myself with the crucial physical findings as noted below. She continues to do well she can actually touch the back of her head with her right arm at this point so she can flex to 95-100 degrees and when she gets warmed up she can extend to -10 to -5. Good varus valgus stability is demonstrated the incision is well healed with no real discomfort also demonstrates full Pro and supination noted. X-rays demonstrate the distal he intra-articular fractures nearly healed at This juncture and doing well Would like her to continue doing her physical therapy and follow up in 4 weeks she can slowly advance her lifting to 5-7 lb at this time Follow-up in 1 month with repeat x-rays documented in this encounter Plan of Treatment Not on file documented as of this encounter Visit Diagnoses Diagnosis Other closed displaced fracture of distal end of right humerus, initial encounter- Primary documented in this encounter Care Teams Foundry Helper Relationship Specialty Start Date End Date Dimitri Parry MD PCP - General Internal Medicine 04/21/22 documented as of this encounter
--- OUTSIDE RECORDS SUMMARY | 2024-03-24 23:45 | XMS_ITS | Encounter Summary ---
Author Organization [facility] Address [address] [place] [address] Care Team Providers Care Boat Designer Name Role Phone Dimitri Parry MD Primary Care Provider [phone] Encounter Details Date Type Department Care Team (Late st Contact Info) Description 04/29/2022 Orders Only [facility] - Orthopedics [address] [place] [address], [facility] [place] [phone] Shai Greene MD [address] [place] [address] OF ORTHOPEDIC SURGERY [place], [place] [id number] Other closed displaced fracture of distal end of right humerus, initial encounter Social History Tobacco Use Types Packs/Day Years Used Date Smoking Tobacco: Never Assessed AUDIT-C Answer Date Recorded Q1: How often [...] * XR ELBOW RIGHT 3VW OR MORE (04/30/2022 9:37 AM GM) Anatomical Region Laterality Modality Upper Extremity Radiographic Davida ging 04/30/2022 9:55 AM GM Impressions 04/30/2022 10:09 AM GM IMPRESSION: Unchanged osseous alignment of the internally fixated distal humerus fracture and proximal ulnar osteotomy. Report dictated by Marilyn Cox MD (radiology services manager). I, Benjamin Barillas MD have personally reviewed and interpreted this examination/study. > Interpreting Provider: Benjamin Barillas MD on 04/30/2022 10:09 AM Narrative 04/30/2022 10:09 AM GM EXAMINATION: XR ELBOW RIGHT 3VW OR MORE DATE/TIME OF EXAM: ??04/30/2022 9:38 AM, LOCATION ??[facility] HISTORY: S42.491A: Other closed displaced fracture of distal end of right humerus, initial encounter COMPARISON: Right elbow radiographs dated 04/23/2022 FINDINGS: The previous cast has been removed. Redemonstrated multiple dorsal skin leighann. Internally fixated distal humerus fracture with plates and screws and proximal ulnar osteotomy with a plate and screws. The hardware is intact and the alignment of the major osseous fragments is unchanged. A 1.2 x 0.4 cm displaced fracture fragment is seen adjacent to the distal humerus on the oblique view. ??There is no dislocation. Mild soft tissue swelling. Procedure Note Benjamin Barillas MD - 04/30/2022 EXAMINATION: XR ELBOW RIGHT 3VW OR MORE DATE/TIME OF EXAM: 04/30/2022 9:38 AM, LOCATION [facility] HISTORY: S42.491A: Other closed displaced fracture of distal end ofright humerus, initial encounter COMPARISON: Right elbow radiographs dated 04/23/2022 FINDINGS: The previous cast has been removed. Redemonstrated multiple dorsal skin leighann. Internally fixated distal humerus fracture with plates and screws and proximal ulnar osteotomy with a plate and screws. The hardware is intact and the alignment of the major osseous fragments is unchanged. A 1.2 x0.4 cm displaced fracture fragment is seen adjacent to the distal humerus on the oblique view. There is no dislocation. Mild soft tissue swelling. IMPRESSION: Unchanged osseous alignment of the internally fixated distal humerus fracture and proximal ulnar osteotomy. Report dictated by Marilyn Cox MD (radiology services manager). I, Benjamin Barillas MD have personally reviewed and interpreted this examination/study. > Interpreting Provider: Benjamin Barillas MD on 04/30/2022 10:09 AM Shai Greene MD DIAGNOSTIC IMAGING O RDERABLES documented in this encounter Visit Diagnoses Diagnosis Other closed displaced fracture of distal end of right humerus, initial encounter- Primary Other closed displaced fracture of distal end of right humerus, initial encounter documented in this encounter Care Teams Boat Designer Relationship Specialty Start Date End Date Dimitri Parry MD PCP - General Internal Medicine 04/21/22 documented as of this encounter
--- OUTSIDE RECORDS SUMMARY | 2024-03-24 23:45 | XMS_ITS | Encounter Summary ---
Author Organization [facility] Address [address] [place] [address] Care Team Providers Care Edge Cutting Machine Operator Name Role Phone Dimitri Parry MD Primary Care Provider [phone] Encounter Details Date Type Department Care Team (Late st Contact Info) Description 06/24/2022 Orders Only [facility] - Orthopedics [address] [place] [address], [facility] [place] [phone] Shai Greene MD [address] [place] [address] OF ORTHOPEDIC SURGERY [place], [place] [phone] Other closed displaced fracture of distal end [...] * XR ELBOW RIGHT 3VW OR MORE (06/25/2022 10:11 AM CDT) Anatomical Region Laterality Modality Upper Extremity Radiographic Davida ging 06/25/2022 10:5 3 AM CDT Impressions 06/25/2022 10:54 AM CDT IMPRESSION: Unchanged osseous alignment. > Interpreting Provider: Benjamin Barillas MD on 06/25/2022 10:54 AM Narrative 06/25/2022 10:54 AM CDT PROCEDURE: ??XR ELBOW RIGHT 3VW OR MORE, DATE/TIME OF EXAM: ??06/25/2022 10:11 AM, LOCATION ??[facility] INDICATION: S42.491D: Other closed displaced fracture of distal end of right humerus with routine healing, subsequent encounter ADDITIONAL CLINICAL INFORMATION: Ordering Provider Reason For Exam: ??fracture Technologist Note: Additional: COMPARISON: 05/28/2022. FINDINGS: Internal fixation of a distal humeral fracture and proximal ulnar osteotomy with plates and screws redemonstrated. The hardware is intact and the osseous alignment is unchanged. Callus is visible. The joint spaces are maintained. Procedure Note Benjamin Barillas MD - 06/25/2022 PROCEDURE: XR ELBOW RIGHT 3VW OR MORE, DATE/TIME OF EXAM: 0:11 AM, LOCATION [facility] INDICATION: S42.491D: Other closed displaced fracture of distal end of right humerus with routine healing, subsequent encounter ADDITIONAL CLINICAL INFORMATION: Ordering Provider Reason For Exam: fracture Technologist Note: Additional: COMPARISON: 05/28/2022. FINDINGS: Internal fixation of a distal humeral fracture and proximal ulnarosteotomy with plates and screws redemonstrated. The hardware is intact and the osseous alignment is unchanged. Callus is visible. The joint spaces are maintained. IMPRESSION: Unchanged osseous alignment. > Interpreting Provider: Benjamin Barillas MD on 06/25/2022 10:54 AM Shai Greene MD DIAGNOSTIC IMAGING O RDERABLES documented in this encounter Visit Diagnoses Diagnosis Other closed displaced fracture of distal end of right humerus with routine healing, subsequent encounter- Primary Other closed displaced fracture of distal end of right humerus with routine healing, subsequent encounter documented in this encounter Care Teams Edge Cutting Machine Operator Relationship Specialty Start Date End Date Dimitri Parry MD PCP - General Internal Medicine 04/21/22 documented as of this encounter
--- OUTSIDE RECORDS SUMMARY | 2024-03-24 23:45 | XMS_ITS | Encounter Summary ---
Author Organization [facility] Address [address] [place] [address] Care Team Providers Care Bus Washer Name Role Phone Dimitri Parry MD Primary Care Provider Reason for Visit * Reason Comments Injury Elbow BIBEMS from OSH with complaint of elbow injury. Per EMS pt had a fall at 1830 and landed on right arm and has a deformity to right elbow . Upon arrival VSS, GCS 15, PMS intact to right arm. * Auth/Cert (Routine) Specialty Diagnoses / Procedures Referred By Contac t Referred To Contact Referral ID Status Reason Start Date Expiration Date Visits Re quested Visits Authorized [id number] 1 1 Encounter Details Date Type Department Care Team (Late st Contact Info) Description 04/21/2022 12:31 AM MAIL TECHNICIAN - 04/23/2022 5:59 PM [facility] Hospital Encounter [facility] 6S ACUTE [address] [place] [id number] Felton oDnahue MD [address] [place] [address] Maggie Hinton MD [address] [place] [address] Shai Levi MD [address] [facility] [place] [address] Shai Pang MD [address] [place] [address] Surgery Orthopedics Discharge Disposition: Home or Self Care Social [...] Comments Blood Pressure 148/79 04/23/2022 11:47 AM MAIL TECHNICIAN Pulse 74 04/23/2022 11:47 AM MAIL TECHNICIAN Temperature 36.9 ??C (98.4 ??F) 04/23/2022 11:[address] Respiratory Rate 18 04/23/2022 11:47 AM MAIL TECHNICIAN Oxygen Saturation 94% 04/23/2022 11:47 AM MAIL TECHNICIAN Inhaled Oxygen Concentration - - Weight 77.1 kg (170 lb) 04/21/2022 12:38 AM MAIL TECHNICIAN Height 165.1 cm (5' 5 ) 04/21/2022 12:38 AM MAIL TECHNICIAN Body Mass Index 28.29 04/21/2022 12:38 AM MAIL TECHNICIAN documented in this encounter Discharge Summaries * Chris Banks MD - 04/23/2022 12:51 PM CST Orthopedic Surgery Discharge Summary 04/23/2022 Patient: America Cloud / 66 year old / female : 1955 [facility]: [id number] Attending Physician: Shai Pang MD Consults: none Admit date: 04/21/2022 12:31 AM Discharge date: 04/23/2022 Admitting Diagnoses: Right distal humerus fracture Active Problems: Fall, initial encounter Other closed displaced fracture of distal end of right humerus, initial encounter Essential hypertension Discharge Diagnoses: Right distal humerus fracture Active Problems: Fall, initial encounter Other closed displaced fracture of distal end of right humerus, initial encounter Essential hypertension Significant Diagnostic Studies: XR ELBOW RIGHT 3VW OR MORE Final Result PROCEDURE: XR ELBOW RIGHT 3VW OR MORE, DATE/TIME OF EXAM: 04/21/2022 9:07 PM, LOCATION [facility] INDICATION: W19.XXXA: Fall, initial encounter ADDITIONAL CLINICAL INFORMATION: Ordering Provider Reason For Exam: trauma COMPARISON: Right elbow radiograph and right elbow CT dated 04/21/2022 FINDINGS/IMPRESSION: splint is present which limits evaluation of the fine bony and soft tissue details. Redemonstration of the comminuted intra-articular fracture of the distal humerus with involvement of the trochlea and capitellum with interval reduction and fixation with multiple plates and screws. Hardware appears intact. There is improved anatomic alignment of the fracture fragments. Postsurgical changes including numerous skin leighann and placement of a surgical drain are seen. Report dictated by Víctor Jaramillo MD, MD (resident care supervisor). I, Benjamin Barillas MD have personally reviewed and interpreted this examination/study. > Interpreting Provider: Benjamin Barillas MD on 04/22/2022 2:17 PM FL AMBER SURGERY Final Result Fluoroscopy was used for this exam in the OR. Please see the Operative report. CT ELBOW RIGHT WO CONTRAST Final Result PROCEDURE: CT ELBOW RIGHT WO CONTRAST, DATE/TIME OF EXAM: 04/21/2022 6:36 AM, LOCATION [facility] INDICATION: S42.491A: Other closed displaced fracture [...] fracture. > Dictated by Luis Silva MD (resident care supervisor) Benjamin Oro MD have personally reviewed and interpreted this examination/study. > Interpreting Provider: Benjamin Barillas MD on 04/21/2022 8:33 AM XR CHEST 1VW PORTABLE Final Result PROCEDURE: XR CHEST 1VW PORTABLE, DATE/TIME OF EXAM: 04/21/2022 6:26 AM, LOCATION [facility] INDICATION: W19.XXXA: Fall, initial encounter ADDITIONAL [...] head. Report dictated by Simin Mayes MD (resident care supervisor). Funmilayo Oro MD have personally reviewed and interpreted this examination/study. > Interpreting Provider: Funmilayo Diaz MD on 04/21/2022 8:49 AM XR ELBOW RIGHT 2VW Final Result PROCEDURE: XR ELBOW RIGHT 2VW, DATE/TIME OF EXAM: 04/21/2022 2:30 AM, LOCATION [facility] INDICATION: W19.XXXA: Fall, initial encounter ADDITIONAL CLINICAL INFORMATION: Ordering Provider Reason For Exam: post reduction COMPARISON: X-ray right elbow 04/21/2022. FINDINGS-IMPRESSION: An external splint obscures bony and soft tissue details. Redemonstrated moderately displaced, comminuted fracture of the distal humerus extending from the medial epicondyle to the articular surface, unchanged in alignment. The elbow joint alignment is anatomical. Tiny ossific fragment adjacent to the olecranon is better visualized on the prior x-ray. Report dictated by Simin Mayes MD (resident care supervisor). Funmilayo Oro MD have personally reviewed and interpreted this examination/study. > Interpreting Provider: Funmilayo Diaz MD on 04/21/2022 8:45 AM XR STRESS ANY JOINT Final Result PROCEDURE: XR HUMERUS RIGHT 2VW OR MORE, XR ELBOW RIGHT 2VW, XR STRESS ANY JOINT, DATE/TIME OF EXAM: 04/21/2022 1:36 AM, LOCATION [facility] INDICATION: W19.XXXA: Fall, initial encounter ADDITIONAL CLINICAL INFORMATION: Ordering Provider Reason For Exam: Trauma (accession [id number]), Trauma (accession [id number]), trauma (accession [id number]) COMPARISON: None. FINDINGS: Right humerus: There is [...] fracture. Report dictated by Simin Mayes MD (resident care supervisor). Funmilayo Oro MD have personally reviewed and interpreted this examination/study. > Interpreting Provider: Funmilayo Diaz MD on 04/21/2022 8:44 AM XR ELBOW RIGHT 2VW Final Result PROCEDURE: XR HUMERUS RIGHT 2VW OR MORE, XR ELBOW RIGHT 2VW, XR STRESS ANY JOINT, DATE/TIME OF EXAM: 04/21/2022 1:36 AM, LOCATION [facility] INDICATION: W19.XXXA: Fall, initial encounter ADDITIONAL CLINICAL INFORMATION: Ordering Provider Reason For Exam: Trauma (accession [id number]), Trauma (accession [id number]), trauma (accession [id number]) COMPARISON: None. FINDINGS: Right humerus: There is [...] small avulsion fracture. Report dictated by Simin aMyes MD (resident care supervisor). I, Funmilayo Diaz MD have personally reviewed and interpreted this examination/study. > Interpreting Provider: Funmilayo Diaz MD on 04/21/2022 8:44 AM XR HUMERUS RIGHT 2VW OR MORE Final Result PROCEDURE: XR HUMERUS RIGHT 2VW OR MORE, XR ELBOW RIGHT 2VW, XR STRESS ANY JOINT, DATE/TIME OF EXAM: 04/21/2022 1:36 AM, LOCATION [facility] INDICATION: W19.XXXA: Fall, initial encounter ADDITIONAL CLINICAL INFORMATION: Ordering Provider Reason For Exam: Trauma (accession [id number]), Trauma (accession [id number]), trauma (accession [id number]) COMPARISON: None. FINDINGS: Right humerus: There is [...] fracture. Report dictated by Simin Mayes MD (resident care supervisor). I, Funmilayo Diaz MD have personally reviewed and interpreted this examination/study. > Interpreting Provider: Funmilayo Diaz MD on 04/21/2022 8:44 AM XR ELBOW RIGHT 2VW (Results Pending) HPI: America Cloud is a 66 year old female who sustained the following orthopaedic problem(s) and intervention(s): PREOPERATIVE DIAGNOSES: Comminuted right distal intra-articular supracondylar intracondylar humerusfracture with coronal plane, trochlea and patellar fracture lines with displacement. ?? POSTOPERATIVE DIAGNOSES: Comminuted right distal intra-articular supracondylar intracondylar humerus fracture with coronal plane, trochlea and patellar fracture lines with displacement. ?? PROCEDURES PERFORMED: 1. Open reduction and internal fixation intra-articular comminuted distal humerus fracture with olecranon osteotomy and medial and lateral plates and articular stabilization. Hospital Course: America Cloud was admitted on 04/21/2022 for the above listed procedure. Patient tolerated the procedure without complication and was extubated and transported to the PACU safely and was admitted as an inpatient. On POD#1 she cleared PT and pain was controlled on PO pain medication. Drain was removed on post op day 2. Diet was advanced and patient tolerated PO intake. Patient was discharged home in stable condition and will follow up with Dr. Levi on 04/30/22. Physical Exam: - Afebrile, vital signs stable General appearance: No apparent distress. ?? Right??upper extremity: motor??fires to??R/M/U/AIN/PIN, Sensation intact to light touch??in R/M/U nerve distributions distally, fingers warm and well perfused. Splint ??intact. HV drain in place withscant serosang output ?? Discharging Physician: Chris Banks MD Discharge Condition: good. Disposition: Home. MEDICATIONS Prior to admission: No current facility-administered medications on file prior to encounter. Current Outpatient Medications on File Prior to Encounter Medication Sig Dispense Refill ??? buPROPion SR 12hr (Wellbutrin-SR) 150 MG tablet Take 1 (one) tablet by mouth 2 times daily ??? FLUoxetine (PROzac) 40 MG capsule Take 2 (two) capsules by mouth once daily ??? fluticasone propionate (Flonase) 50 MCG/ACT nasal spray Foster 1 (one) spray into the nose once [...] 1 (one) tablet by mouth once daily Discharge medications and follow up: Follow-up Information Shai Levi MD . Specialty: Orthopedic Surgery Contact information: [facility] [facility] [place] [address] Patient Instructions Summary: - Weight Bearing: NWB RUE - Activity: Activity as tolerated - Diet: regular diet - Wound Care: Keep wound clean and dry. Change dressing in 3 days or sooner if saturated. Replace with dry dressings as needed. No showers until we see you in clinic - Anticoagulation: ASA 325 daily - Sutures/[place]: dissolvable - Pain Medication: Tylenol, oxycodone Narcotic Medication Patient Information You are being discharged/sent home with a prescription(s) for narcotic pain medicine (examples: Oxycodone, Hydrocodone, Roxicodone, Percocet, [place]). Our goal is to control your pain, however all medicines may have side effects. Additionally it is important to remember that the goal of pain medication is not to take away the pain completely but rather combat it enough to make daily living manageable. Please be aware of the following instructions: - You should not drive or operate any motorized vehicle or heavy or dangerous machinery until you have been able to stop taking your pain medicine for at least 48 (forty eight) hours. - You should avoid making any serious or legal decisions while you are taking any medicine for pain. - Take your pain medicine as prescribed by your physician, per the label on your medicine container. - You may need an over the counter laxative or stool softener while taking your pain medicine (pain medicines can cause constipation). - Do not consume alcohol while taking pain medicine. - Do not use recreational drugs while taking pain medicine. - Over the first week you are discharged you should be gradually weaning off narcotics and switch to only taking over the counter Tylenol. - Many pain medicines (such as [place] or Percocet) also contain Tylenol/Acetaminophen (this is the 325 component of the 5-325 or 10-325 which is listed on the medicine container). Do not consume more than the daily dose of Tylenol/Acetaminophen (3 grams or 3,000 miligrams) combined between regular Tylenol and your pain medication. - For your comfort and safety, we need to see you in the office to write additional prescriptions for pain medicine. No pain medicine will be renewed over the phone. Bring all medicine bottles to office visits. Future Appointments Saturday April 30, 2022 9:30 AM Appointment with Shai Levi at [facility] 1L ([phone]) [address] [place] [phone] Chris Banks MD 04/23/2022 12:51 PM 04/23/2022 12:51 PM [facility] Orthopedic Surgery office contact information: [facility] at [address], [place] [address] [place] [address] [facility] at [address], [address] [place] [address] TECHNICIAN documented in this encounter Discharge Instructions * Discharge Instructions* Meme Chu RN - 04/23/2022 2:10 PM MAIL TECHNICIAN CARING FOR YOUR CAST Your cast is meant to hold a part of your body still while the bone and/or soft tissues can heal properly. For most of us, this is a new and unwanted experience which lasts normally six to eight weeks. To make this time easier to bear, here are the answers to frequently asked questions. 1. CAN I GET MY CAST WET? When wet, a cast becomes loose and soggy and tends to stay that way for many days. Problems as a result of wet casts are: -Blisters ( from the cast rubbing on moist skin) -Rashy raw skin -Itching -Foul odor -Infection at the surgical site -A loose cast doesn't hold the broken bones as stable which could lead to the bones shifting while in your cast. ( If your cast becomes wet, contact your orthopedic clinic) 2. HOW DO I BATHE? A sponge bath is the safest method of bathing. A shower is safer for a cast than a bath. A secure bag should be placed over the cast and taped to the skin. ( Rubber bands do not work). The cast, if submerged, gets wet very quickly and even if a bag is properly placed, the water pressure pushes water into the bag. When showering, keep the bagged arm or leg out of the spray as much as possible. Don't take a real hot shower because water condenses or collects inside the bag much like the outside of a cold glass of liquid. If it feels like water is leaking into the bag, then stop the shower untilthis is fixed. If you have a non-weight bearing leg cast on and you are going to shower, use a chair or stool to sit on. * The tub/shower area is very slippery and so very dangerous - be careful!! 3. WHAT SHOULD I DO ABOUT SWELLING? A cast will not expand. If your cast should feel tight, or if you should feel some numbness or tingling, or if your fingers or toes look dark or dusky, then you must elevate it. Swelling is a liquid,so it will go to lower places. Swollen arms or legs need to be elevated high enough to pour the swelling out of that limb. If honest elevation doesn't seem to be working, then you should call the clinic or hospital where you were casted. 4. WHAT IF I THINK I SHOULD SEE A DOCTOR SOONER THAN MY NEXT APPOINTMENT? Feel free to call whenever you have questions concerning your condition. Things to be concerned with : -Possible infection -Drainage through the cast (this is especially important if you had surgery). -Foul odor. -Redness around the break in the skin. -Burning pain. -Unexplained temperature. -Swelling uncontrolled with high elevation. -A change to a higher level of pain. -Pain and an increase in swelling after a fall. -A cast that has become wet. 5. WHAT CAN I DO ABOUT ITCHING? Most people experience itching while in a cast. It is important that nothing is pushed into your cast for any reason, especially if you had surgery or had a break in your skin from an injury. Pushingthings into your cast causes the padding to get pushed and packed down. This makes tight spots which can lead to pressure sores. If you make scratches in your skin, this can cause infection problems,but will also increase the itching. Powders or lotions should not be put into the cast. They leave a residue which is irritating to theskin and promotes bacterial growth (this causes more itching and a smelly cast). A chair mechanic with a cool setting can often be used to blow air down into your cast. This can be very soothing. Otherwise, you should just wait out the itching. 6. WHEN CAN I PUT WEIGHT ON MY CAST? That is a decision your doctor must make. He takes into account the stability of your break to decide if your bone can bear weight. When your bone is strong enough, bearing some weight may help to speed the growth of healing bone. Bearing weight too soon will either move the bone or stop bone growth. (Your body cannot keep up with the damage you do with walking on a non-weight bearing bone). Yourdoctor may start you off on only partial weight to allow you and your bones to get used to the new stresses. Don't try to proceed faster than your limb wants to. 7. HOW DOES THE CAST GET CUT OFF? A cast saw is used to remove casts. It looks scary, but doesn't spin like normal saws --it shakes. This takes little bites of your cast very quickly. If the saw were to touch your skin, it would justwiggle it back and forth. The saw will not even cut the padding between your body and the cast. It is the safest tool to remove your cast. A CAST IS A TOOL USED TO FIX INJURED PARTS OF YOUR BODY. WITH PROPER CARE, IT CAN HELP TO GET YOU BACK TO HAVING A NORMAL ARM OR LEG IN THE FASTEST, SAFEST WAY!! TECHNICIAN documented in this encounter Medications at Time of Discharge [...] fluticasone propionate (Flonase) 50 MCG/ACT nasal spray Foster 1 (one) spray into the nose once [...] (one) tablet by mouth once daily 04/14/2022 acetaminophen (Tylenol) 325 MG tabletIndications:Fa ll, initial encounter Take 2 (two) tablets by mouth every 6 hours for 10 days Maximum allowable Acetaminophen amount = 4 Grams (4000 mg) / 24 hours. 80 tablet 04/23/2022 05/03/2022 aspirin (Aspirin) 325 MG tablet Take 1 (one) tablet by mouth once daily for 35 days 35 tablet 04/23/2022 05/28/2022 docusate sodium (Colace) 100 MG capsuleIndications:F all, initial encounter Take 1 (one) capsule by mouth 2 times daily for 10 days 20 capsule 04/23/2022 05/03/2022 oxyCODONE, immediate release, (Roxicodone) 5 MG tabletIndications:Arthur faye, initial encounter Take 1 (one) tablet by mouth every 4 hours as needed 40 tablet 04/23/2022 06/25/2022 polyethylene glycol 3350 (Miralax) 17 g packetIndications:Arthur faye, initial encounter Take 17 (seventeen) g by mouth once daily as needed for Constipation 04/23/2022 05/28/2022 documented as of this encounter Progress Notes * Mark Perkins DO - 04/23/2022 5:59 PM CST Attempted to contact Ms. Cloud. Left voicemail instructing to call back to follow up about catheter placement. Will attempt to contact tomorrow. Mark Perkins DO 04/26/2022 12:19 PM TECHNICIAN * Mark Perkins DO - 04/23/2022 5:59 PM CST [facility] Perineural Catheter Phone Follow Up The patient was called at 2:23 PM on 04/24/22. The patient is now POD # 4 s/p ORIF R humerus and received a pre-op supraclavicular nerve block with a catheter. Max Pain Score 7. Min Pain Score 5. PO Pain Pills Tylenol and flexeril. Local Anesthetic type ropivacaine 0.2% Basal rate 2 ml/hr Pain is well controlled. No redness, pain or leakage around the block site were noted by the patient. Patient or patient transportation specialist spoken to on phone: Yes Symptoms of local anesthetic toxicity? no Symptoms of catheter migration? no Symptoms of catheter Infection? no Pain score: 5 Dressing intact: Yes Catheter removed intact: not removed All questions answered:Yes Mark Perkins DO 04/24/22 Please page [phone] (PAIN) with any questions or concerns. TECHNICIAN * Mark Perkins DO - 04/23/2022 5:59 PM CST [facility] Perineural Catheter Phone Follow Up The patient was called at 8:47 AM on 04/25/22. The patient is now POD # 5 s/p ORIF R humerus and received a pre-op supraclavicular nerve block with a catheter. Max Pain Score 4/10. Min Pain Score 2/10. PO Pain Pills Tylenol and flexeril. Local Anesthetic type 0.2% Ropi Basal rate 2 cc/hr ml/hr Pain is well controlled. No redness, pain or leakage around the block site were noted by the patient. Patient or patient transportation specialist spoken to on phone: Yes Symptoms of local anesthetic toxicity? no Symptoms of catheter migration? no Symptoms of catheter Infection? no Pain score: 2 Dressing intact: Yes Catheter removed intact:not removed All questions answered:Yes Mark ePrkins DO 04/25/22 Please page [phone] (PAIN) with any questions or concerns. TECHNICIAN * Mark Perkins DO - 04/23/2022 5:59 PM CST [facility] Catheter Nerve Block Telephone Follow Up Unable to reach patient after multiple unsuccessful attempts at the listed telephone number. The patient was educated on when to present to the ER regarding issues that could evolve from their nerve block & encouraged to call with any additional questions. Mark Perkins DO 04/27/22 8:59 AM TECHNICIAN * Mark Perkins DO - 04/23/2022 5:59 PM CST [facility] Perineural Catheter Phone Follow Up The patient was called at 1:16 PM on 04/28/22. The patient is now POD # 7 s/p ORIF R humerus and received a pre-op supraclavicular nerve block with a catheter. Max Pain Score 7. Min Pain Score 5. PO Pain Pills Tylenol and flexeril. Local Anesthetic type ropivacaine 0.2% Basal rate 2 ml/hr Pain is well controlled. No redness, pain or leakage around the block site were noted by the patient. Patient or patient transportation specialist spoken to on phone: Yes Symptoms of local anesthetic toxicity? no Symptoms of catheter migration? no Symptoms of catheter Infection? no Pain score: 5 Dressing intact: Yes Catheter removed intact: Yes All questions answered:Yes Mark Perkins DO 04/28/22 Please page [phone] (PAIN) with any questions or concerns. Ysabel Hercules CPhT - 04/23/2022 5:50 PM CST MEDICATION TO BEDSIDE DELIVERY: COMPLETE Medication to Bedside delivery was completed for America Cloud. ??? A total of 5 prescriptions were delivered to the patient for discharge. ??? Medications were given to NURSE (MEME) ??? This delivery included a controlled substance: YES, given to MEME ??? This delivery included medication that should be stored in the fridge: NO Thank you for allowing the outpatient pharmacy to participate in the care of America Cloud. If you have any questions, please contact the outpatient pharmacy at [phone]. Ysabel Manuel CPhT [facility] at [address], [address] Floor [place], [place] [address] Hours of Operation Thursday - Thursday: 8:00am to 6:00pm Thursday: 9:00am to 1:00pm Epic: [facility] *Ensure the patient and clinic's nearby ZIP codes box is unchecked* HAL * Meme Chu RN - 04/23/2022 1:31 PM CST Problem: Skin Integrity Goal: Skin integrity is maintained or improved Outcome: Adequate for Discharge Problem: Pain/Discomfort Goal: Patient exhibits reduced pain/discomfort as evidenced by pain scores Outcome: Adequate for Discharge Goal: Patient uses pharmacological and non-pharmacological pain management strategies. Outcome: Adequate for Discharge Goal: Patient verbalizes acceptable level of pain relief and ability to engage in desired activity. Outcome: Adequate for Discharge Problem: Ineffective breathing pattern related to obstructive sleep apnea Goal: Maintains optimal sleep pattern, as evidenced by relaxed breathing at normal rate and depth. Outcome: Adequate for Discharge Goal: Adheres to CPAP (Continuous Positive Airway Pressure) device regimen as prescribed. Outcome: Adequate for Discharge Problem: Sleep deprivation related to sleep apnea. Goal: Achieves restful, refreshing sleep pattern. Outcome: Adequate for Discharge Problem: Fall Risk Goal: Fall risk and fall related injury risk are minimized (interventions related to the fall risk can be found in the flowsheet documentation) Outcome: Adequate for Discharge TECHNICIAN * Mark Perkins DO - 04/23/2022 11:50 AM CST [facility] Single Shot Peripheral Nerve Block Follow Up and Nerve Catheter follow up The patient is now POD # 3 s/p ORIF R humerus and received a pre-op supraclavicular nerve block with a catheter. Subjective Pt reports 2/10 pain. Currently taking PO tylenol. Pt denies pain at injection site and denies new numbness/tingling. Max Pain Score 4/10. Min Pain Score 2/10. Local anesthetic type ropivacaine. Current rate 2 cc/ hr. Pain is well controlled. No redness, pain or leakage around the block site were noted on bedside exam. Catheter unchanged from insertion site Will continue to follow patient until catheter removal. Patient seen and examined on 04/23/[address] 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 I agree with progress note and plan for the patient's Post Operative Pain Management. Pain well controlled with catheter in place. Will continue to follow until catheter removal. 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 Outpatient medications were clarified with patient, pharmacy records, Surescripts data, and Care Everywhere. Please note all medications may NOT have been clarified pending available information at the time. Current Updated Home Medications: Medications Prior to Admission Medication Sig Action Taken buPROPion SR 12hr (Wellbutrin-SR) 150 MG tablet Take 1 (one) tablet by mouth 2 times daily added FLUoxetine (PROzac) 40 MG capsule Take 2 (two) capsules by mouth once daily added fluticasone propionate (Flonase) 50 MCG/ACT nasal spray Foster 1 (one) spray into the nose once daily as needed added losartan (Cozaar) 100 MG tablet Take 1 (one) tablet by mouth once daily added montelukast (Singulair) 10 MG tablet Take 1 (one) tablet by mouth once daily added omeprazole (PriLOSEC) 20 MG capsule Take 1 (one) capsule by mouth at bedtime added oxybutynin CR 24hr (Ditropan-XL) 10 MG tablet Take 1 (one) tablet by mouth once daily Added Please note that this only serves as an updated medication list and all medical teams should continue to manage the patient as deemed most appropriate. If any questions about the home medication listarise please do not hesitate to contact the [facility] pharmacy dept ([id number]). Thank you. Assessment Completed by: Josh Ko Jr., PharmD 04/23/2022 11:24 AM TECHNICIAN * Chris Banks MD - 04/23/2022 10:15 AM CST [facility] Orthopedic Surgery Progress Note Admit Date: 04/21/2022 12:31 AM April 23, 2022 Subjective Patient seen and examined on rounds this am. Doing well this AM, feels ready for DC. Drain out and transitioned to cast Data BP 152/70 Pulse 77 Temp 98 ??F (36.7 ??C) (Oral) Resp 20 Ht 1.651 m (5' 5 ) Wt 77.1 kg (170 lb) SpO2 92% Temp (24hrs), Av.1 ??F (36.7 ??C), Min:98 ??F (36.7 ??C), Max:98.1 ??F (36.7 ??C) Labs Recent Labs Component Name 04/23/22 0329 04/22/22 0111 04/21/22 0345 WBC 9.5 12.4* 12.7* HGB 9.8* 11.5* 12.3 HCT 30.7* 36.1 37.6 PLTCOUNT 200 258 253 Recent Labs Component Name 04/21/22 0345 INR 1.0 Cultures Microbiology Results (Displays last 21 days for this encounter ONLY) No results found for the last 504 hours. Physical Exam General appearance: No apparent distress. Right upper extremity: motor fires to R/M/U/AIN/PIN, Sensation intact to light touch in R/M/U nervedistributions distally, fingers warm and well perfused. Splint intact. HV drain in place with scantserosang output ?? Assessment/Plan America Cloud is a 66 year old female with the following diagnoses: #Right intraarticular distal humerus fracture S/p GLF 1. right upper extremity: NWB 2. PT/OT 3. HV drain x1 removed at bedside 4. Transitioned to long arm cast 5. Pain Control 6. Hospital DVT Prophylaxis: Lovenox (enoxaparin) 7. Anticoagulation plan at discharge: 1 month 8. Anticipate dc home later today with 1.5 week follow up with Dr. levi 9. Please page with questions instead of using Epic chat function. Chris Banks MD 04/23/2022 10:15 AM TECHNICIAN * Liza Xie RN - 04/22/2022 5:35 PM CST Problem: Skin Integrity Goal: Skin integrity is maintained or improved 04/22/2022 173 by Liza Xie RN Outcome: Progressing 04/22/2022 173 by Liza Xie RN Outcome: Progressing Problem: Pain/Discomfort Goal: Patient exhibits reduced pain/discomfort as evidenced by pain scores 04/22/2022 173 by Liza Xie RN Outcome: Progressing 04/22/2022 173 by Liza Xie RN Outcome: Progressing Goal: Patient uses pharmacological and non-pharmacological pain management strategies. Outcome: Progressing Goal: Patient verbalizes acceptable level of pain relief and ability to engage in desired activity. Outcome: Progressing Problem: Ineffective breathing pattern related to obstructive sleep apnea Goal: Maintains optimal sleep pattern, as evidenced by relaxed breathing at normal rate and depth. Outcome: Progressing Goal: Adheres to CPAP (Continuous Positive Airway Pressure) device regimen as prescribed. Outcome: Progressing Problem: Sleep deprivation related to sleep apnea. Goal: Achieves restful, refreshing sleep pattern. Outcome: Progressing Problem: Fall Risk Goal: Fall risk and fall related injury risk are minimized (interventions related to the fall risk can be found in the flowsheet documentation) Outcome: Progressing TECHNICIAN * Bernie Garcia - 04/22/2022 12:35 PM CST Spray Rig Operator had initial visit with this patient. I introduced the role of pastoral care and inquired about needs. The patient explained that she fell on ice and needed surgery on her arm. She explained that she has support from her 3 daughters. She spoke about the of her , mother, and catlast year. I asked her what has helped her cope with these significant losses. 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 She did not express any specific pastoral care needs, but I assured her of the ongoing presence of blister pack operator support as needed. Pastoral Care Ascom: [id number] Bernie Garcia 04/22/2022 12:37 PM TECHNICIAN * Maria Antonia Georges RN - 04/22/2022 11:01 AM CST Case Management Initial Assessment Case Management screen completed Anticipated Discharge Date: 04/23/22 Transportation at Discharge: Family Anticipated level of care at discharge: Home Anticipated level of care provider: None Prior to admission level of care: Home Prior to admit provider: None Discharge Goals and Plans: Patient Goals: Safe return home Plans: Discharge needs identified. See progress notes for details. Case Management to follow for discharge planning. Upon discharge or transfer to a post acute facility should rehospitalization, home health, rehabilitation, or any other follow up care be required, patient's preference is to stay within the [facility] and its affiliates.: Yes Comments: 66 yoF presented 04/21 form OS due to a fall on right arm and has a deformity to right elbow. Closed reduction performed in ED. s/p 04/21/22 ORIF of RIGHT HUMERUS (Right: Arm) OSTEOTOMY HUMERUS with Shai Levi MD 04/22 drain management. Will follow up in clinic. Next PCP (Dimitri Parry MD) visit is May 09, 2022. Lives with: Daughter (& Grandchild) Physical Limitations: None Requires Assistance With: None Insurance: Payer/Plan Subscriber Name Rel Member # Group # MAE - STEFAN JARAMILLO O* AMERICA CLOUD Self [id number] [id number] Readmission: No READMISSION RISK SCORE is N/A at 11:11 AM 04/22/2022. Met with patient Family Support (name and phone): Extended Emergency Contact Information Primary Emergency Contact: NICOLA RIVER Mobile Relation: Daughter Secondary Emergency Contact: TEGAN DEL REAL Mobile Relation: Daughter Patient or ict sales representative requests care coordination reach out to family or caregiver listed above regarding discharge planning and at time of discharge? No Patient/Family provided with list of resources? No Preferred Provider / High Quality Network List given?: No Reason for provider choice: Pt. choice - Pt. choice Supervisor Prep Referral: No Will continue to follow. For any questions or needs please contact: Craft Demonstrator Name/Phone number: Maria Antonia Georges RN TECHNICIAN * Shai Brady IV, MD - 04/22/2022 4:58 AM CST [facility] Orthopedic Surgery Progress Note Admit Date: 04/21/2022 12:31 AM April 22, 2022 Subjective Patient seen and examined on rounds this am. Data BP 156/73 Pulse 69 Temp 98.1 ??F (36.7 ??C) (Oral) Resp 18 Ht 1.651 m (5' 5 ) Wt 77.1 kg (170 lb) SpO2 100% Temp (24hrs), Av.1 ??F (36.7 ??C), Min:97.7 ??F (36.5 ??C), Max:99 ??F (37.2 ??C) Labs Recent Labs Component Name 04/22/22 0111 04/21/22 0345 WBC 12.4* 12.7* HGB 11.5* 12.3 HCT 36.1 37.6 PLTCOUNT 258 253 Recent Labs Component Name 04/21/22 0345 INR 1.0 Cultures Microbiology Results (Displays last 21 days for this encounter ONLY) No results found for the last 504 hours. Physical Exam General appearance: No apparent distress. Right upper extremity: motor fires to R/M/U/AIN/PIN, Sensation intact to light touch in R/M/U nervedistributions distally, fingers warm and well perfused. Splint intact. ?? Assessment/Plan America Cloud is a 66 year old female with the following diagnoses: #Right intraarticular distal humerus fracture S/p GLF 1. right upper extremity: NWB 2. PT/OT 3. Pain Control 4. Hospital DVT Prophylaxis: Lovenox (enoxaparin) 5. Anticoagulation plan at discharge: 1 month 6. Continue pain catheter 7. Will change splint to cast before discharge 8. Please page with questions instead of using Epic chat function. Shai Brady IV, MD 04/22/2022 4:59 AM TECHNICIAN * Phyllis Carbone RN - 04/21/2022 11:46 PM CST Problem: Skin Integrity Goal: Skin integrity is maintained or improved Outcome: Progressing Problem: Pain/Discomfort Goal: Patient exhibits reduced pain/discomfort as evidenced by pain scores Outcome: Progressing Goal: Patient uses pharmacological and non-pharmacological pain management strategies. Outcome: Progressing Goal: Patient verbalizes acceptable level of pain relief and ability to engage in desired activity. Outcome: Progressing Problem: Ineffective breathing pattern related to obstructive sleep apnea Goal: Maintains optimal sleep pattern, as evidenced by relaxed breathing at normal rate and depth. Outcome: Progressing Goal: Adheres to CPAP (Continuous Positive Airway Pressure) device regimen as prescribed. Outcome: Progressing Problem: Sleep deprivation related to sleep apnea. Goal: Achieves restful, refreshing sleep pattern. Outcome: Progressing Problem: Fall Risk Goal: Fall risk and fall related injury risk are minimized (interventions related to the fall risk can be found in the flowsheet documentation) Outcome: Progressing TECHNICIAN * Shai Brady IV, MD - 04/21/2022 7:31 PM CST Orthopedic Surgery Postoperative Check America Cloud, 66 year old, female : 1955 CSN: [id number] Admitted: 04/21/2022 12:31 AM Subjective Nausea/vomiting: none Pain: controlled Patient stable and resting in post-anesthesia care unit Post-op check regarding: Procedure Performed: Procedure(s): OPEN REDUCTION INTERNAL FIXATION (ORIF) RIGHT HUMERUS OSTEOTOMY HUMERUS Surgery Date: 04/21/2022 Vitals: Patient Vitals for the past 6 hrs: Temp Pulse Resp BP BP Method 04/21/22 1428 -- -- 19 160/88 -- 04/21/22 1409 -- -- -- 160/86 -- 04/21/22 1346 -- 66 15 -- -- 04/21/22 1345 -- 67 11 154/75 Automatic 04/21/22 1343 99 ??F (37.2 ??C) -- -- -- -- Physical Exam General appearance: Awake, cooperative, and NAD RUE -Appearance: dressings c/d/i -ROM: immobilized in splint -Motor: Fires EPL/FPL/ EDC/FDP/IO -Sensation: decreased sensation in Median/Ulnar/Radial distributions at the hand -Vascular: brisk capillary refill, fingers warm and well perfused Assessment/Plan Patient is a 66 year old, female with right distal humerus fracture - s/p: right distal humerus ORIF 1. Patient transferred to the PACU in stable condition. Patient will be transferred to the floor 2. Prior to admission meds ordered 3. Antibiotics- Ancef 2mg q8 for 24 hours 4. Weight-bearing/Activity/Brace Status: NWB RUE 5. DVT Prophylaxis: SCD's today. OK for Lovenox 6. Diet: advance as tolerated 7. Drains- HVx1 8. PT/OT 9. Pain Control 10. Imaging: Postoperative X-Rays demonstrate are pending 11. Please page OrthoTrauma with any questions or concerns Shai Brady IV, MD 04/21/2022 7:31 PM TECHNICIAN * Chris Banks MD - 04/21/2022 4:43 AM CST [facility] Orthopedic Surgery Progress Note Admit Date: 04/21/2022 12:31 AM April 21, 2022 Subjective Patient seen and examined on rounds this am. No acute events overnight. Pain controlled. Data BP 147/92 Pulse 75 Temp 98.7 ??F (37.1 ??C) (Temporal) Resp 20 Ht 1.651 m (5' 5 ) Wt 77.1kg (170 lb) SpO2 93% Temp (24hrs), Av.6 ??F (37 ??C), Min:98.3 ??F (36.8 ??C), Max:98.7 ??F (37.1 ??C) Labs Recent Labs Component Name 04/21/22 0345 WBC 12.7* HGB 12.3 HCT 37.6 PLTCOUNT 253 Recent Labs Component Name 04/21/22 0345 INR 1.0 Cultures Microbiology Results (Displays last 21 days for this encounter ONLY) No results found for the last 504 hours. Physical Exam General appearance: No distress Right upper extremity: motor fires to R/M/U/AIN/PIN, Sensation intact to light touch in R/M/U nervedistributions distally, fingers warm and well perfused. Splint intact. Assessment/Plan America Cloud is a 66 year old female with the following diagnoses: #Right intraarticular distal humerus fracture S/p GLF 1. OR today for Open Reduction and Internal Fixation of right distal humerus 2. Cont npo, mIVF 3. right upper extremity: NWB 4. PT/OT 5. Pain Control 6. Hospital DVT Prophylaxis: Per primary, OK from Ortho perspective 7. Will continue to follow, please page with questions. DO NOT USE RightAnswers Secure Chat. Chris Banks MD 04/21/2022 6:06 AM TECHNICIAN Associated attestation - Shai Levi MD - 04/21/2022 1:50 PM MAIL TECHNICIAN I have reviewed the history and pertinent physical findings on clinical exam of the patient. I agree with the residents assessment and I personally examined the patient myself with the crucial physical findings as noted below. Hx as noted . Fell last night with distal intra articular humerus fx. Lateral and medial condyle. N/v intact No focal motor/ sensory deficits noted. All examined motor groups intact and no sensory changes noted. Able to extend wrist, and fingers, flex finger and wrist with no wrist drop. Pulses at wrist intact with palp radial and ulnar pulse. Tomasz's test is normal. Discussed ORIF RIGHT distal humerus this pm Discussed with pt and she agrees and will proceed at this time documented in this encounter H&P Notes * Shai Pang MD - 04/22/2022 5:17 AM CST [facility] Orthopedic Trauma Surgery Consultation Note America Cloud, 66 year old, female : 1955 CSN: [id number] Primary Care Physician: Dimitri Parry MD Chief Complaint Chief Complaint Patient presents with ??? Injury Elbow BIBEMS from OSH with complaint of elbow injury. Per EMS pt had a fall at 1830 and landed on right arm and has a deformity to right elbow . Upon arrival VSS, GCS 15, PMS intact to right arm. Admission Date/Time: 04/21/2022 12:31 AM Today's Date/Time: 04/22/2022 5:17 AM HPI Consulting Service: ED HPI: America Cloud is a 66 year old female who presented to [facility] Emergency Department on 04/21/2022 with complaint of Right elbow pain. Date of injury: 04/21/2022. Cause of injury: GLF. Orthopaedic Surgery consulted for evaluation/management of Right distal humerus fracture . Patient felt immediate pain, noted deformity, and was unable to use their right elbow without pain. Denies numbness/paresthesias in affected extremity.Patient was ambulatory on the scene. Patient describes the pain as severe . Symptoms are aggravated by movement. Symptoms improve with rest. ROS otherwise negative. - Other injuries include: none - PMH: Pre-DM, Smoking, HTN Vitals Blood pressure 156/73, pulse 69, temperature 98.1 ??F (36.7 ??C), temperature source Oral, resp. rate 18, height 1.651 m (5' 5 ), weight 77.1 kg (170 lb), SpO2 100 %. PMHx No past medical history on file. PSHx No past surgical history on file. Social Hx Social History Tobacco Use ??? Smoking status: Not on file ??? Smokeless tobacco: Not on file Substance Use Topics ??? Alcohol use: Not on file Family Hx family history is not on file. Allergies No Known Allergies Medications Current Facility-Administered Medications Medication ??? acetaminophen (Tylenol) tablet 650 mg ??? nuklfqpj-nxltflwvq-brpiyzaehao (Maalox; Mylanta) suspension 20 mL ??? docusate sodium (Colace) capsule 100 mg ??? enoxaparin (Lovenox) injection 40 mg ??? FLUoxetine (PROzac) capsule 40 mg ??? HYDROmorphone (Dilaudid) injection 0.4 mg ??? HYDROmorphone (Dilaudid) injection 0.5 mg ??? lactated ringers infusion ??? losartan (Cozaar) tablet 100 mg ??? melatonin tablet 3 mg ??? methocarbamol (Robaxin) tablet 750 mg ??? ondansetron (disintegrating) (Zofran ODT) tablet 4 mg Or ??? ondansetron (Zofran) injection 4 mg ??? oxybutynin CR 24hr (Ditropan-XL) tablet 10 mg ??? oxyCODONE (immediate release) (Roxicodone) tablet 10 mg ??? oxyCODONE (immediate release) (Roxicodone) tablet 5 mg ??? polyethylene glycol 3350 (Miralax) packet 17 g ??? ropivacaine 0.2% On-Q C-bloc Orlkiz-Y-Ucbl single catheter infusion 2 mg/ml 600 ml Review of Systems A 12 point review of systems was performed and was negative except for: what was mentioned in the HPI Vitals Blood pressure 156/73, pulse 69, temperature 98.1 ??F (36.7 ??C), temperature source Oral, resp. rate 18, height 1.651 m (5' 5 ), weight 77.1 kg (170 lb), SpO2 100 %. Physical Exam General: Awake, cooperative, in no acute distress. \ Left upper extremity: -Appearance: skin intact, compartments soft/compressible -Tenderness: nontender to palpation of shoulder, arm and hand. -ROM: nontender to passive range of motion of shoulder, elbow, wrist and fingers. -Motor: Able to ABduct index and small fingers, able to Flex thumb at IP joint, able to hold thumb extended, able to flex/extend the elbow, able to ABduct shoulder -Sensation: intact to light touch Axillary/Median/Ulnar/Radial distributions, patient endorses normal sensation in the hand -Vascular: WWP, Good capillary refill. Palpable radial pulse with fingers warm and well perfused Right upper extremity: -Appearance: Small abrasion over elbow, compartments soft/compressible -Tenderness: nontender to palpation of shoulder and hand. Tender to palpation of arm -ROM: nontender to passive range of motion of wrist and fingers. Tender to passive range of motion of shoulder and elbow. -Motor: Able to ABduct index and small fingers, able to Flex thumb at IP joint, able to hold thumb extended, able to flex/extend the elbow, able to ABduct shoulder -Sensation: intact to light touch Axillary/Median/Ulnar/Radial distributions, patient endorses normal sensation in the hand -Vascular: WWP, Good capillary refill. Palpable radial pulse with fingers warm and well perfused Labs Recent Labs Component Name 04/22/2211004/21/22344 WBC 12.4* 12.7* HGB 11.5* 12.3 HCT 36.1 37.6 MCV 91.2 89.1 PLTCOUNT 258 253 Recent Labs Component Name 04/22/2211004/21/22344 NA 137 137 POTASSIUM 4.3 4.4 CL 101 106 CO2 24 23 BUN 14 16 CREATININE 0.67 0.70 GLUCOSE 196* 157* Recent Labs Component Name 04/21/22344 INR 1.0 PT 13.5 Imaging - XRs of the left elbow reviewed. Demonstrates Fracture of the distal humerus with intraarticular extension Assessment/Plan: 66 year old female with a right distal humerus fracture ??? Weight bearing Status: RUE NWB ??? Closed reduction performed in ED. The patient remained motor and neuro intact following reduction and reported interval resolution of pain ??? splint applied in ED. Patient counseled to elevated the affected extremity with distal limb higher than proximal limb in an effort to limit swelling. ??? Will obtained CT scan ??? Diet: NPO ??? Antibiotics: none ??? Anticoagulation Status: Please start DVT prophy as long as not contraindicated for other medical reason. ??? Pain Control ??? Plan for PT/OT when able ??? Patient was counseled to the nature of their diagnosis and demonstrated understanding. Questions solicited and answered. Follow up Contact Information: Orthopaedic Surgery [facility] Medicine, Level I-Orthopaedic Surgery [address] [place] [id number] Wilfredo Lobato MD Historic Clothing And Costume Maker Department of Orthopedic surgery [facility] TECHNICIAN documented in this encounter Procedure Notes * Wilfredo Lobato MD - 04/21/2022 2:48 AM CST Orthopaedic Surgery Closed Reduction Note Patient Name: America Cloud Date of Procedure: 04/21/2022 Procedure: Closed reduction and splinting of right arm Indication: Fracture of the right distal humerus Permit: The procedure and its risks and benefits were discussed at length with the patient. Consentwas obtained. Physician: Wilfredo Lobato MD Description: Time out performed with the RN. Adequate sedaton was provided per the ED physician. The skin was assessed revealing a small abrasion over elbow The fracture was assessed on xray to determine initial position. The fracture was then reduced by pulling traction and correcting alignment. The arm was placed in a stockinette to the shoulder and wrapped to the shoulder with webril. A Long arm posterior splint with side bars was then placed and secured with webril. The entire splint was ovewrapped with DESTINI/bias wrap. A mold was placed at the fracture site to hold reduction. The patient tolerated the procedure well. Blood Loss: None Complications: None DISPOSITION: Patient alert, oriented, and resting. Skin is warm and well perfused distally. Sensation intact distally to splint. Patient denies any numbness or tingling. AP and Lateral plain films demonstrated acceptable alignment. TECHNICIAN documented in this encounter Consult Notes * Wilfredo Lobato MD - 04/21/2022 2:39 AM CST [facility] Orthopedic Trauma Surgery Consultation Note America Cloud, 66 year old, female : 1955 CSN: [id number] Primary Care Physician: No primary care provider on file. Chief Complaint Chief Complaint Patient presents with ??? Injury Elbow BIBEMS from OSH with complaint of elbow injury. Per EMS pt had a fall at 1830 and landed on right arm and has a deformity to right elbow . Upon arrival VSS, GCS 15, PMS intact to right arm. Admission Date/Time: 04/21/2022 12:31 AM Today's Date/Time: 04/21/2022 2:39 AM HPI Consulting Service: ED HPI: America Cloud is a 66 year old female who presented to [facility] Emergency Department on 04/21/2022 with complaint of Right elbow pain. Date of injury: 04/21/2022. Cause of injury: GLF. Orthopaedic Surgery consulted for evaluation/management of Right distal humerus fracture . Patient felt immediate pain, noted deformity, and was unable to use their right elbow without pain. Denies numbness/paresthesias in affected extremity.Patient was ambulatory on the scene. Patient describes the pain as severe . Symptoms are aggravated by movement. Symptoms improve with rest. ROS otherwise negative. - Other injuries include: none - PMH: Pre-DM, Smoking, HTN Vitals Blood pressure (!) 171/126, pulse 73, temperature 98.7 ??F (37.1 ??C), temperature source Temporal,resp. rate 20, height 1.651 m (5' 5 ), weight 77.1 kg (170 lb), SpO2 97 %. PMHx No past medical history on file. PSHx No past surgical history on file. Social Hx Social History Tobacco Use ??? Smoking status: Not on file ??? Smokeless tobacco: Not on file Substance Use Topics ??? Alcohol use: Not on file Family Hx family history is not on file. Allergies No Known Allergies Medications Current Facility-Administered Medications Medication ??? ketamine (Ketalar) injection 200 mg ??? ketamine (Ketalar) injection ??? propofol (Diprivan) injection 200 mg ??? propofol (Diprivan) injection No current outpatient medications on file. Review of Systems A 12 point review of systems was performed and was negative except for: what was mentioned in the HPI Vitals Blood pressure (!) 171/126, pulse 73, temperature 98.7 ??F (37.1 ??C), temperature source Temporal,resp. rate 20, height 1.651 m (5' 5 ), weight 77.1 kg (170 lb), SpO2 97 %. Physical Exam General: Awake, cooperative, in no acute distress. \ Left upper extremity: -Appearance: skin intact, compartments soft/compressible -Tenderness: nontender to palpation of shoulder, arm and hand. -ROM: nontender to passive range of motion of shoulder, elbow, wrist and fingers. -Motor: Able to ABduct index and small fingers, able to Flex thumb at IP joint, able to hold thumb extended, able to flex/extend the elbow, able to ABduct shoulder -Sensation: intact to light touch Axillary/Median/Ulnar/Radial distributions, patient endorses normal sensation in the hand -Vascular: WWP, Good capillary refill. Palpable radial pulse with fingers warm and well perfused Right upper extremity: -Appearance: Small abrasion over elbow, compartments soft/compressible -Tenderness: nontender to palpation of shoulder and hand. Tender to palpation of arm -ROM: nontender to passive range of motion of wrist and fingers. Tender to passive range of motion of shoulder and elbow. -Motor: Able to ABduct index and small fingers, able to Flex thumb at IP joint, able to hold thumb extended, able to flex/extend the elbow, able to ABduct shoulder -Sensation: intact to light touch Axillary/Median/Ulnar/Radial distributions, patient endorses normal sensation in the hand -Vascular: WWP, Good capillary refill. Palpable radial pulse with fingers warm and well perfused Labs No results for input(s): WBC, HGB, HCT, MCV, PLTCOUNT in the last 46456 hours. No results for input(s): NA, POTASSIUM, CL, CO2, BUN, CREATININE, GLUCOSE in the last 33403 hours. No results for input(s): INR, PT in the last 58872 hours. Imaging - XRs of the left elbow reviewed. Demonstrates Fracture of the distal humerus with intraarticular extension Assessment/Plan: 66 year old female with a right distal humerus fracture ??? Weight bearing Status: RUE NWB ??? Closed reduction performed in ED. The patient remained motor and neuro intact following reduction and reported interval resolution of pain ??? splint applied in ED. Patient counseled to elevated the affected extremity with distal limb higher than proximal limb in an effort to limit swelling. ??? Will obtained CT scan ??? Diet: NPO ??? Antibiotics: none ??? Anticoagulation Status: Please start DVT prophy as long as not contraindicated for other medical reason. ??? Pain Control ??? Plan for PT/OT when able ??? Patient was counseled to the nature of their diagnosis and demonstrated understanding. Questions solicited and answered. Follow up Contact Information: Orthopaedic Surgery [facility] Medicine, Level I-Orthopaedic Surgery [address] [place], [place] [id number] Wilfredo Lobato MD [employer] Department of Orthopedic surgery [facility] TECHNICIAN documented in this encounter OR Notes * Brief Op Note - Shai Brady IV, MD - 04/21/2022 3:31 PM CST Brief Op Note Procedure: OPEN REDUCTION INTERNAL FIXATION (ORIF) RIGHT HUMERUS, OSTEOTOMY HUMERUS Patient Name: America Cloud Date of Service: 04/21/2022 Pre-Op Diagnosis: Closed fracture of distal end of right humerus, unspecified fracture morphology, initial encounter [S42.401A] Post-Op Diagnosis: same Surgeon(s) and Role: * Shai Levi MD - Primary * Shai Brady IV, MD - Resident - Assisting * Chris Banks MD - Resident - Assisting Stock Order Lister(s): none Anesthesia Type: general ETT Complications: none Findings: Fracture reduced and plates placed. Olecranon osteotomy for visualization EBL: blood loss of 150 ml Urine Output : 150 mL IV Fluid Intake: see anaesthesia note Drains: Drain 1 Round Accordian Anterior;Right Shoulder (Active) Specimen(s): * No specimens in log * Implant(s): Implant Name Type Inv. Item Serial No. Administrative Services Specialist Lot No. [id number] No. Used Action Pin Fx 50Mm 1.5Mm Spn Plla Rsrb Slf Pin Fx 50Mm 1.5Mm Spn Plla Rsrb Slf [employer] [id number] Right 2 Implanted Screw 2.7Mm 4.5Mm 38Mm T8 Slf-Tap Cortx Screw 2.7Mm 4.5Mm 38Mm T8 Slf-Tap Cortx [employer] Right 1 Implanted Screw 4Mm 20Mm Ft Osteopenia Jackson Ft Screw 4Mm 28Mm Ft Osteopenia Jackson Ft [employer] TraumaRight 1 Implanted Screw 3.5Mm 22Mm Slf-Tap Cortx Evos Strl Screw 3.5Mm 22Mm Slf-Tap Cortx Evos Strl [employer] Right 1 Implanted Screw 2Mm 3Mm 20Mm T6 Slf-Tap Cortx Evos Screw 2Mm 3Mm 20Mm T6 Slf-Tap Cortx Evos [employer] Right 1 Implanted Stent Eprsth Prost 3Cm 14Mm Urlm 24 Wire Stent Eprsth Prost 3Cm 14Mm Urlm 24 Wire [employer] Right 1 Implanted Screw 3.5Mm 20Mm Ft Hex Drv Nlckg Elb Screw 3.5Mm 20Mm Ft Hex Drv Nlckg Elb [employer] Right 1 Implanted Screw 3.5Mm 28Mm Ft Nonlock Hex Drv Elb Screw 3.5Mm 28Mm Ft Nonlock Hex Drv Elb [employer] Right1 Implanted rt small plate distal hum [employer] Right 1 Implanted 3.5mm screw 26mm [employer] Right 1 Implanted 3.5mm screw 20mm [employer] Right 1 Implanted 3.5mm screw 26mm [employer] Right 1 Implanted 3.5mm screw 30mm [employer] Right 1 Implanted 3.5mm screw 32mm [employer] Right 2 Implanted 3.5mm screw 58mm [employer] Right 1 Implanted Screw 2Mm 3Mm 18Mm T6 Slf-Tap Cortx Evos Screw 2Mm 3Mm 18Mm T6 Slf-Tap Cortx Evos [employer] Right 1 Implanted 2.0 x 28mm double washer [employer] Right 1 Implanted 3.5mm 22mm screw [employer] Right 1 Implanted Shai Brady IV, MD TECHNICIAN * Operative - Shai Levi MD - 04/21/2022 11:15 AM CST Operative Report NAME: AMERICA CLOUD : 1955 AGE: 66 PROC DATE: 04/21/2022 SEX: F SURGEON: Shai Levi MD PREOPERATIVE DIAGNOSES: 1)Comminuted right distal intra-articular supracondylar intracondylar humerus fracture 2)with coronal plane, trochlea and capitellar fractures with displacement. POSTOPERATIVE DIAGNOSES: 1)Comminuted right distal intra-articular supracondylar intracondylar humerus fracture 2)with coronal plane, trochlea and capitellar fractures with displacement. PROCEDURES PERFORMED: 1. Open reduction and internal fixation intra-articular comminuted distal humerus fracture with olecranon osteotomy and medial and lateral plates and articular stabilization. 2. ORIF coronal plane shear capitellar and trochlear fractures ATTENDING SURGEON: Shai Levi MD BUCKLE WIRE INSERTER: Anjum Brady MD and Dr. Kalpesh Banks. INDICATIONS FOR PROCEDURE: This is a very pleasant 66-year-old woman who sustained a slip and fall while leaving a friend's house on Thursday night, sustaining a very complex intra-articular right distal humerus fracture with vertical shear of the capitellum as well as the trochlea with a large medial column intra-articular injury and lateral column injury as well. She was seen at an outside institution and transferred to [facility] for orthopedic and specialty care. She was thoroughly evaluated by all services including a CT scan, which documented the severe nature of her articular injury. She was cleared for surgery. We will proceed at this juncture. DESCRIPTION OF PROCEDURE: Following application of general endotracheal anesthesia, the patient wastransferred from her hospital bed to a radiolucent operating table where she was placed in a left lateral decubitus position on a beanbag patient positioner with the right arm elevated and draped over a radiolucent arm board. Entire upper extremity was prepped and draped from shoulder to fingertips and a sterile pneumatic tourniquet placed upon the right upper humerus. Following Esmarch exsanguination, the tourniquet was inflated to 200 mmHg. There was a very distal fracture with a short oblique medial column, a short oblique lateral columnwith split into the trochlea as well as an anterior shear injury to the anterior trochlea and capitellar fracture. The incision began approximately 6 cm proximal to the tip of the olecranon, carried distally around the medial aspect of the olecranon tip and down the shaft of the proximal ulna for an additional 4 cm. Incision was carried down through skin and subcutaneous tissue identifying the triceps fascia and the tip of the olecranon reflecting full-thickness flaps medially and laterally. The lateral intermuscular septum was identified and the triceps elevated off the lateral intermuscularseptum and the interval between the anconeus and triceps was exploited. However, this area was highly damaged as the lateral column exited through this portal. Immediately upon exploiting the interval, the trochlear ulnar capsule was identified and incised and a large lateral trochlear fragment was easily visualized as displaced from the joint. The capitellum had been sheared off with a portion of the lateral column as well as inferior lateral column fragment. Elevating the triceps off of the lateral column, it was evident that significant intra-articular displacement was noted and the triceps was elevated off the lateral column up to 5 to 6 cm proximal tothe joint line. The olecranon fossa was identified and the soft tissues elevated across the mid portion of the distal humerus. Attention was then turned to the medial column and the triceps elevated off the medial intermuscular septum and the ulnar nerve was identified and carefully dissected free from the medial triceps. Distal dissection explored the ulnar nerve down to the decussation between the flexor carpi ulnaristwo heads of the muscle. The nerve was then gently freed up and protected with a small vessel loop to manipulate without undue traction. The nerve was mobilized out of the ulnar groove such that it could be free floating within the confines of the fracture. The medial part of the triceps was then elevated off the medial intermuscular septum and elevated off the medial column defining the large medial column fracture, which went obliquely into and acrossthe olecranon fossa into the articular surface. The soft tissues were elevated off of the medial column directly off the medial aspect down to the proximal ulna, incising the ulnar trochlear joint. Immediately upon entering the joint, another large trochlear fragment was visualized and found to be displaced into the olecranon fossa. Elevating the triceps off the medial portion of the olecranon fossa, it was apparent that again additional intra-articular comminution was present and that a parat ricipital approach would not be adequate. At this juncture, the mid portion of the ulnar trochlear joint was identified on the olecranon, andthe soft tissues elevated in a Chevron type fashion. A 2 mm drill was used to drill from anterior to posterior at the apex of the Chevron directly in the mid portion of the ulnar trochlear joint through the ulna. Once this hole had been drilled, a 3-hole EVOS olecranon plate was then positioned appropriately. The mid portion of the triceps was then elevated sharply off the tip of the olecranon and reflected proximally where the olecranon plate could fit directly juxtaposed to the posterior aspect of the ulna. The plate was then predrilled and the oblique screw from the shaft up to the tip of the olecranon posteriorly was predrilled and hand torqued into position using a 2.7 mm screw through the tip of theolecranon. The distal aspect of the plate was then positioned along the shaft anatomically and an eccentric load screw was placed through the most distal screw hole at the distal aspect of the plate.This would be utilized for eventual plate placement following the osteotomy. At this point, the plate was removed temporarily with 2 holes already predrilled and the reciprocating saw used to perform a Chevron osteotomy down to the articular surface, which was then completed with 2 small osteotomes completing the osteotomy. The olecranon osteotomy was then reflected proximally elevating the triceps above the olecranon fossa and identifying all fracture fragments, which consisted of a highly comminuted trochlear fragment and an anterior shear fracture of the capitellum as well as the supracondylar split medially, laterally into the joint. The medial column was identified and the fracture line exploited and cleared of all granulation tissue through the olecranon fossa down into the articular surface. The posterior half of the medial trochlea, three fragment was identified, cleared of all soft tissue and replaced onto the medial column and held with a small tenaculum. A 2.0 mm lag screw as well as two additional 1.5 mm Smart pins were then used to lag the posterior half of the trochlea back on to the koi medial column. This entire medial column was then manipulated and positioned anatomically onto the shaft and held with two small tenaculums and a K-wire. Attention was then turned to the lateral column and the posterior lateral trochlear fragment was identified in addition to the large capitellar portion, which involved the entire capitellum, a portion of the posterior lateral column and the lateral third of the trochlea. This large segment was cleared of all granulation tissue and the posterior capsule incised to expose the junction between the inferior capitellum and the trochlea. This large fragment was then manipulated and reduced to the posterior column as well as the reducedintra-articular trochlear fragment and held with a large tenaculum. A spool K-wire was then placed from lateral to medial across the sagittal plane articular fracture,a trochlear fracture and with the capitellar fragment reduced to the lateral column, a column wire was placed through the base of the capitellum across the lateral column maintaining anatomic reduction. At this juncture, the intraarticular split and supracondylar fracture of the medial and lateral columns had been reduced anatomically and was held with small tenaculums as noted. A medial column direct medial plate was then selected using the 3-hole [facility] medial column plate. This was then gently under bent and contoured to match the entire medial aspect of the medial column and was juxtaposed to this area and held with small tenaculum and K-wires. First and third screw holes from the top of the plate were then filled in bicortical fashion from medial to lateral, carefullyprotecting the ulnar nerve. The three distal screws were then placed in an oblique fashion with the first screw at the inferiormargin of the lateral column at the trochlear junction was then predrilled using a spool screw placed from medial to laterally exiting just inferior to the capitellum just at the lateral margin of the trochlea. This was measured appropriately visualized under fluoroscopic control and a 2.7 mm variable angle multidirectional screw advanced across the spool to compress the sagittal plane fracture. Because of the trochlear comminution and the anterior shear portion, an oblique inferior trochlea to superior trochlear 2 mm lag screw was placed and countersunk beneath the trochlear surface to help reduce the anterior shear portion of the trochlear fragment. With the medial column and medial aspect of the trochlea reconstructed in the supracondylar medial column and sagittal plane split reduced, attention was then turned to the two additional inferior medial column screws, which were then advanced using multidirectional screws obliquely from the medialcolumn into the superior medial aspect and superolateral aspects of the trochlea with a fourth screw through the medial column just into the olecranon fossa to fully reduce and maintain reduction of the medial column and trochlear fragments. Attention was then turned to the comminuted lateral column. The capitellar fragment, which had been reduced and held with a spool wire as well as a column wirewere then adjusted and a 4-hole posterolateral column plate was then prebent and juxtaposed to the posterior column. It was adjusted such that the two distal capitellar screws could be placed from posterior inferior to superior anterior. The plate was then positioned with 2 proximal screws from posterior to anterior, achieving bicortical stabilization compressing the lateral column plate to bone and at this juncture, the two very inferior capitellar screw trajectories were prebent using the Joroto plate Burk. The first screw was placed from the inferior lateral to superior medial anterior lagging in the lateral portion of the capitellar fragment. A second lateral screw was then placed from anterior to posterior just short of the subchondral bone under fluoroscopic control to lag in the capitellar fragment as well. An additional column screw was then positioned replacing the lateral column fragment between the capitellum and the shaft portion. There was a far inferior lateral cortical fragment, which could be held with a small tenaculum and K-wire. This was crucial as it maintained the lateral column continuity between the shaft and the capitellum. This was then lagged into position using a 2 mm lag screw using a 2-hole washer as a smallposition plate prebending and using this to compress the inferior lateral column on to the capitellar fragment. At this juncture, the entire montage was visualized under AP and lateral fluoroscopic view and found to have reproduced the anterior carrying angle as well as the anatomic reduction of the trochlea and capitellar fragments. The wounds were then copiously lavaged. It should be noted that following the exposure, the tourniquet was deflated as it became a venous tourniquet and only 18 minutes of tourniquet time was utilized to achieve the initial incision and exposure of the triceps. At this point, the elbow was flexed and the olecranon tip fragment was visualized and the plate positioned back into position using the olecranon tip screw, which had been predrilled. A 2.7 mm nonlocking screw was then used to compress the plate to bone and at this juncture another K-wire was placed from posterior to anterior to maintain temporary reduction of the plate onto the proximal segment. The osteotomy was then reduced anatomically and held with a large tenaculum forceps. The load screwat the distal end of the plate, which had been predrilled previously was then measured and hand torqued into position as the screw was positioned in an eccentric load fashion. Excellent interfragmentary compression was achieved. A 2.7 mm screw was then positioned antegrade from the tip of the plate down the shaft out the medial proximal cortex to act as a longitudinal lag screw across the fracture. A 2.7 mm screw was then placed from posterior to just anterior to the coronoid process to fully lock in the osteotomy, which was confirmed under AP, lateral, and dynamic fluoroscopy with excellent range of motion achieved near full extension and flexion to 110 degrees fluoroscopically was visualized. The wound was copiously lavaged with normal saline and sealed with 10 mL of FloSeal hemostatic agent. At this juncture, an 1/8-inch Hemovac drain was placed deep to the subcutaneous tissue and the ulnar nerve was allowed to float free over out of the ulnar groove over the top of the distal humerus with the position of comfort and no tension. The medial and lateral intermuscular septum were then gently reapproximated using interrupted 0 Vicryl and a small sling of fascial tissue was closed from posterior to anterior over the nerve to prevent it from subluxing anteriorly. The tongue type triceps reflection to gain access to the direct posterior portion of the olecranon was closed over the post aspect of the olecranon plate using #1 Ethibond suture and oversown with #0Vicryl suture. The wound was again lavaged with normal saline until clear. An 8-inch Hemovac drain placed subcutaneously. The anconeus interval was closed using interrupted 0 Vicryl. Anais's fascia closed using interrupted 0 Vicryl, 2-0 Monocryl closed subcutaneous tissue and skin leighann closed the skin in interrupted fashion. A large bulky compressive dressing was applied using Xeroform gauze, sterile 4x4's overwrapped withsterile Webril. Bulky cotton rolls applied from midpalmar crease to axilla overwrapping a posteriorsplint with the elbow in -30 degrees short of full extension. The patient was then awakened and returned to recovery room with neurovascular and vital signs stable. Total tourniquet time only 18 minutes. ESTIMATED BLOOD LOSS: 150 mL. Shai Levi MD JTW/kir .[id number] Doc ID: [id number] Voice Job ID: [id number] TECHNICIAN documented in this encounter ED Notes * Kelly Ferrera RN - 04/21/2022 7:57 AM CST Pt changed into just a gown with all other clothes removed. Pt nad and stated she was going to try and take a nap before surgery. TECHNICIAN * Maggie Hinton MD - 04/21/2022 7:48 AM CST Physician Transition Note 7:00 a.m. Care assumed from Dr. Donahue Briefly, this is a 66 year old female with Chief Complaint Patient presents with ??? Injury Elbow BIBEMS from OSH with complaint of elbow injury. Per EMS pt had a fall at 1830 and landed on right arm and has a deformity to right elbow . Upon arrival VSS, GCS 15, PMS intact to right arm. Significant Findings: Elbow fracture after fall Workup (labs/Imaging) pending: Labs Reviewed CBC W/O DIFFERENTIAL - Abnormal; Notable for the following components: Result Value WBC 12.7 (*) All other components within normal limits BASIC METABOLIC PANEL (CALCIUM TOTAL) - Abnormal; Notable for the following components: Glucose 157 (*) All other components within normal limits PT-INR [facility] - Normal PTT [facility] - Normal TYPE + SCREEN PANEL BLOOD TYPE VERIFICATION CT ELBOW RIGHT WO CONTRAST Final Result PROCEDURE: CT ELBOW RIGHT WO CONTRAST, DATE/TIME OF EXAM: 04/21/2022 6:36 AM, LOCATION [facility] INDICATION: S42.491A: Other closed displaced fracture [...] fracture. > Dictated by Luis Silva MD (resident care supervisor) I, Benjamin Barillas MD have personally reviewed and interpreted this examination/study. > Interpreting Provider: Benjamin Barillas MD on 04/21/2022 8:33 AM XR ELBOW RIGHT 2VW (Results Pending) XR HUMERUS RIGHT 2VW OR MORE (Results Pending) XR STRESS ANY JOINT (Results Pending) XR ELBOW RIGHT 2VW (Results Pending) XR CHEST 1VW PORTABLE (Results Pending) Working Differential: Other Current Plan/Dispo: Admitted to Trauma Service Please refer to previous Attending note for further details. BP 165/92 Pulse 75 Temp 98.7 ??F (37.1 ??C) (Temporal) Resp 20 Ht 1.651 m (5' 5 ) Wt 77.1kg (170 lb) SpO2 90% ED Course Resting comfortably, pending bed assignment TECHNICIAN * Antoinette Frazier RN - 04/21/2022 2:08 AM CST Pt placed on 5L NC during procedure TECHNICIAN * Deonte Jackson MD - 04/21/2022 1:24 AM CST CC fall, right elbow fracture HISTORY History obtained from: Patient 66 year old year old female with hx as below including hypertension, transferred from [facility] for right humerus fracture after ground level fall earlier this evening. Patient states that she was leaving her [id number]'s house when she slipped on the driveway falling on her right arm. She immediately had excruciating pain in the right arm. Denies hitting her head or loss of consciousness. She also struck her right knee on the ground. Denies pain anywhere else on her body. She is not on anticoagulation. She was seen at [facility] where they diagnosed her with a severely comminuted and moderately displaced fracture of the distal humerus. She was then transferred to [facility] for orthopedic surgery services. No past medical history on file. No past surgical history on file. No family history on file. Social History Socioeconomic History ??? Marital status: Not on file Spouse name: Not on file ??? Number of children: Not on file ??? Years of education: Not on file ??? Highest education level: Not on file Occupational History ??? Not on file Tobacco Use ??? Smoking status: Not on file ??? Smokeless tobacco: Not on file Substance and Sexual Activity ??? Alcohol use: Not on file ??? Drug use: Not on file ??? Sexual activity: Not on file Other Topics Concern ??? Not on file Social History Narrative ??? Not on file Social Determinants of Health Financial Resource Strain: Not on file Food Insecurity: Not on file Transportation Needs: Not on file Stress: Not on file Housing Stability: Not on file PHYSICAL EXAM BP 157/82 Pulse 73 Temp 98.3 ??F (36.8 ??C) (Temporal) Resp 20 Ht 1.651 m (5' 5 ) Wt 77.1kg (170 lb) SpO2 94% Physical Exam Constitutional: Appearance: She is well-developed. HENT: Head: Normocephalic and atraumatic. Nose: Nose normal. Mouth/Throat: Mouth: Mucous membranes are moist. Pharynx: Oropharynx is clear. Eyes: Extraocular Movements: Extraocular movements intact. Pupils: Pupils are equal, round, and reactive to light. Cardiovascular: Rate and Rhythm: Normal rate and regular rhythm. Pulses: Normal pulses. Heart sounds: Normal heart sounds. No murmur heard. No gallop. Pulmonary: Effort: Pulmonary effort is normal. No respiratory distress. Breath sounds: Normal breath sounds. Abdominal: General: Abdomen is flat. Palpations: Abdomen is soft. Tenderness: There is no abdominal tenderness. Musculoskeletal: General: Swelling, deformity and signs of injury present. Comments: Right elbow swelling, tenderness to palpation, decreased range of motion due to pain, radial and ulnar pulses intact, neuro intact, motor intact Skin: General: Skin is warm and dry. Capillary Refill: Capillary refill takes less than 2 seconds. Neurological: General: No focal deficit present. Mental Status: She is alert and oriented to person, place, and time. Psychiatric: Mood and Affect: Mood normal. Behavior: Behavior normal. MEDICAL DECISION MAKING Problem List: fall, right humerus fracture Plan: Labs, imaging, orthopedic surgery consult RESULTS Labs Reviewed - No data to display XR ELBOW RIGHT 2VW (Results Pending) XR HUMERUS RIGHT 2VW OR MORE (Results Pending) XR STRESS ANY JOINT (Results Pending) INTERVENTIONS: Medications HYDROmorphone (Dilaudid) injection 0.5 mg (0.5 mg Intravenous $ Given 04/21/22 0100) Procedures ED COURSE Patient seen and evaluated, available studies reviewed - outside hospital imaging reviewed, shows comminuted, displaced fracture of the right humerus. Orthopedic surgery consulted - orthopedic surgery have seen the patient and evaluated her imaging, requesting sedation for closed reduction of the patient's fracture - see sedation documentation in attending note for further details - successfully reduced fracture by orthopedic surgery, plan to take the patient to the OR in the morning, will admit to their service Clinical Impressions as of 04/21/22 0533 Fall, initial encounter Other closed displaced fracture of distal end of right humerus, initial encounter Essential hypertension DISPOSITION After discussion with patient will be admitted to their service for further management of care. I have reviewed the diagnostic findings with the patient and they have had an opportunity to ask me anyquestions they have about care, diagnosis, and reason for admission. The patient states understanding and agrees to admission. ED FINAL DIAGNOSIS 1. Fall, initial encounter 2. Other closed displaced fracture of distal end of right humerus, initial encounter 3. Essential hypertension Deonte Jackson MD TECHNICIAN * Felton Donahue MD - 04/21/2022 12:55 AM CSTAssociated Order(s): Moderate Sedation Post-Procedure Diagnose(s): Fall, initial encounter; Other closed displaced fracture of distal end of right humerus, initial encounter; Essential hypertension ED Resident Attestation I have personally seen, examined and been fully involved in the management of this patient with theresident. I confirm history, exam, assessment and plan Discussed with the resident. In addition I note: History: America Cloud is a 66 year old female with a history of htn who presents to the ED forright arm pain after a fall. Patient fell onto her right arm earlier this evening and had immediatepain and deformity of that elbow. Also notes some right knee pain. Patient went to OSH where knee xrays were benign but right elbow xray showed a fracture. She was transferred here for further management. Patient has not had similar symptoms in the past. Symptoms are worse with nothing, better withnothing. Patient has no other complaints. No past medical history on file. Social History Socioeconomic History ??? Marital status: Spouse name: Not on file ??? Number of children: Not on file ??? Years of education: Not on file ??? Highest education level: Not on file Occupational History ??? Not on file Tobacco Use ??? Smoking status: Not on file ??? Smokeless tobacco: Not on file Substance and Sexual Activity ??? Alcohol use: Not on file ??? Drug use: Not on file ??? Sexual activity: Not on file Other Topics Concern ??? Not on file Social History Narrative ??? Not on file Social Determinants of Health Financial Resource Strain: Not on file Food Insecurity: Not on file Transportation Needs: Not on file Stress: Not on file Housing Stability: Not on file No past surgical history on file. Review of Systems: Review of Systems Constitutional: Negative. HENT: Negative. Eyes: Negative. Respiratory: Negative. Cardiovascular: Negative. Gastrointestinal: Negative. Genitourinary: Negative. Musculoskeletal: Elbow pain Skin: Negative. Allergic/Immunologic: Negative. Neurological: Negative. Psychiatric/Behavioral: Negative. All other systems reviewed and are negative. Exam: Vitals: 04/21/22 0407 04/21/22 0437 04/21/22 0459 04/21/22 0529 BP: 164/89 147/92 168/90 165/92 Pulse: Resp: Temp: SpO2: 91% 93% 90% 90% Weight: Height: The patient's Oxygen Saturation Monitor was interpreted by me. The reading was 94%. The patient wason room yonas at the time of the reading. This is interpreted as normal Physical Exam Vitals and nursing note reviewed. Constitutional: General: She is not in acute distress. Appearance: Normal appearance. She is well-developed. She is not ill-appearing, toxic-appearing or diaphoretic. HENT: Head: Normocephalic and atraumatic. Right Ear: External ear normal. Left Ear: External ear normal. Nose: Nose normal. Mouth/Throat: Mouth: Mucous membranes are moist. Pharynx: No oropharyngeal exudate or posterior oropharyngeal erythema. Eyes: General: Right eye: No discharge. Left eye: No discharge. Extraocular Movements: Extraocular movements intact. Conjunctiva/sclera: Conjunctivae normal. Pupils: Pupils are equal, round, and reactive to light. Neck: Trachea: No tracheal deviation. Cardiovascular: Rate and Rhythm: Normal rate and regular rhythm. Heart sounds: No murmur heard. No friction rub. No gallop. Pulmonary: Effort: Pulmonary effort is normal. No respiratory distress. Breath sounds: Normal breath sounds. No wheezing or rales. Chest: Chest wall: No tenderness. Abdominal: General: Bowel sounds are normal. There is no distension. Palpations: Abdomen is soft. There is no mass. Tenderness: There is no abdominal tenderness. There is no guarding or rebound. Hernia: No hernia is present. Musculoskeletal: General: Swelling (right elbow), tenderness, deformity and signs of injury present. Cervical back: Normal range of motion and neck supple. No tenderness. Skin: General: Skin is warm and dry. Coloration: Skin is not jaundiced. Neurological: General: No focal deficit present. Mental Status: She is alert and oriented to person, place, and time. Cranial Nerves: No cranial nerve deficit. Sensory: No sensory deficit. Motor: No weakness or abnormal muscle tone. Coordination: Coordination normal. Psychiatric: Behavior: Behavior normal. Thought Content: Thought content normal. Judgment: Judgment normal. Labs Reviewed CBC W/O DIFFERENTIAL - Abnormal; Notable for the following components: Result Value WBC 12.7 (*) All other components within normal limits BASIC METABOLIC PANEL (CALCIUM TOTAL) - Abnormal; Notable for the following components: Glucose 157 (*) All other components within normal limits PT-INR [facility] - Normal PTT [facility] - Normal TYPE + SCREEN PANEL BLOOD TYPE VERIFICATION XR ELBOW RIGHT 2VW (Results Pending) XR HUMERUS RIGHT 2VW OR MORE (Results Pending) XR STRESS ANY JOINT (Results Pending) XR ELBOW RIGHT 2VW (Results Pending) CT ELBOW RIGHT WO CONTRAST (Results Pending) XR CHEST 1VW PORTABLE (Results Pending) Medications ketamine (Ketalar) injection 200 mg (has no administration in time range) propofol (Diprivan) injection 200 mg (has no administration in time range) HYDROmorphone (Dilaudid) injection 0.5 mg (0.5 mg Intravenous $ Given 04/21/22 2486) lactated ringers infusion ( Intravenous $ New Bag/Syringe 04/21/22 9914) enoxaparin (Lovenox) injection 40 mg (has no administration in time range) acetaminophen (Tylenol) tablet 650 mg (650 mg Oral $ Given 04/21/22 4091) oxyCODONE (immediate release) (Roxicodone) tablet 5 mg (has no administration in time range) oxyCODONE (immediate release) (Roxicodone) tablet 10 mg (has no administration in time range) HYDROmorphone (Dilaudid) injection 0.4 mg (has no administration in time range) ondansetron (disintegrating) (Zofran ODT) tablet 4 mg (has no administration in time range) Or ondansetron (Zofran) injection 4 mg (has no administration in time range) ftxcjqzd-pbzlcmnvb-azngmqmphgr (Maalox; Mylanta) suspension 20 mL (has no administration in time range) docusate sodium (Colace) capsule 100 mg (has no administration in time range) polyethylene glycol 3350 (Miralax) packet 17 g (has no administration in time range) melatonin tablet 3 mg (has no administration in time range) methocarbamol (Robaxin) tablet 750 mg (has no administration in time range) FLUoxetine (PROzac) capsule 40 mg (40 mg Oral $ Given 04/21/22 0625) oxybutynin CR 24hr (Ditropan-XL) tablet 10 mg (has no administration in time range) losartan (Cozaar) tablet 100 mg (has no administration in time range) HYDROmorphone (Dilaudid) injection 0.5 mg (0.5 mg Intravenous $ Given 04/21/22 0109) propofol (Diprivan) injection (10 mg Intravenous $ New Bag/Syringe 04/21/22 0213) ketamine (Ketalar) injection (10 mg Intravenous $ Given 04/21/22 0217) losartan (Cozaar) tablet 100 mg (100 mg Oral $ Given 04/21/22 0510) Assessment/Plan: 66 year old woman with right elbow pain - fracture vs contusion vs laceration vs other 1. Work Up - See lab and radiology orders 2. Therapy - See orders 3. 12:55 AM - Patient evaluated - patient with known fracture on OSH xrays, here for orthopedic consultation. Will give pain meds, consult orthopedics, dispo pending their recs. 0116: Discussed all the pertinent aspects of the case with ortho who will see the patient. 0157: Moderate Sedation Date/Time: 04/21/2022 2:33 AM Performed by: Felton Donahue MD Authorized by: Felton Donahue MD Consent: Consent obtained: Verbal and written Consent given by: Patient Risks, benefits, and alternatives were discussed: yes Risks discussed: Allergic reaction, inadequate sedation, nausea, vomiting, prolonged hypoxia resulting in organ damage, prolonged sedation necessitating reversal and respiratory compromise necessitating ventilatory assistance and intubation Alternatives discussed: Analgesia without sedation and anxiolysis Leighton protocol: Procedure explained and questions answered to patient or proxy's satisfaction: yes Relevant documents present and verified: yes Test results available: yes Imaging studies available: yes Required blood products, implants, devices, and special equipment available: yes Site/side marked: yes Immediately prior to procedure, a time out was called: yes Patient identity confirmed: Verbally with patient and arm band Indications: Procedure performed: Fracture reduction Procedure necessitating sedation performed by: Physician performing sedation Intended level of sedation: Moderate Pre-sedation assessment: Time since last food or drink: 9 hours ASA classification: class 2 - patient with mild systemic disease Mallampati score: II - soft palate, uvula, fauces visible Neck mobility: normal Pre-sedation assessments completed and reviewed: airway patency, anesthesia/sedation history, cardiovascular function, hydration status, mental status, nausea/vomiting, pain level and respiratory function History of difficult intubation: no Pre-sedation assessment completed: 04/21/2022 1:30 AM Immediate pre-procedure details: Reassessment: Patient reassessed immediately prior to procedure Reviewed: vital signs Verified: bag valve mask available, emergency equipment available, intubation equipment available, IV patency confirmed and oxygen available Procedure details (see MAR for exact dosages): Sedation start time: 04/21/2022 1:57 AM Preoxygenation: Nasal cannula Sedation: Propofol (ketamine and propofol) Intra-procedure monitoring: Blood pressure monitoring, manager coding, continuous capnometry, continuous pulse oximetry, frequent LOC assessments and frequent vital sign checks Intra-procedure events: hypoxia Intra-procedure events comment: Patient with brief episode of shallow breathing with saturation down to 88 with first medications given, corrected with jaw thrust Intra-procedure management: Airway repositioning (patient had jaw thrust during brief desaturation) Sedation end time: 04/21/2022 2:27 AM Total sedation time (minutes): 30 Post-procedure details: Post-sedation assessment completed: 04/21/2022 2:37 AM Attendance: Constant attendance by certified staff until patient recovered Recovery: Patient returned to pre-procedure baseline Post-sedation assessments completed and reviewed: airway patency, cardiovascular function, hydration status, mental status, nausea/vomiting, pain level and respiratory function Specimens recovered: None Patient is stable for discharge or admission: yes Procedure completion: Tolerated well, no immediate complications 0515: Will admit pt to ortho for surgery. 0526: After discussion with ortho, the patient will be admitted to their service for further management of care. -I have reviewed the diagnostic findings with the patient and they have had an opportunity to ask me any questions they have about care, diagnosis, and reason for admission. The patient states understanding and agrees to admission. 0700: Patient signed out to Dr. Hinton. At this time the patient's condition is stable. Pending ortho bed. Disposition LEANNE to Dr. Hinton. Procedure done at this time No Ultrasound done at this time No Clinical Impression: 1. Fall, initial encounter 2. Other closed displaced fracture of distal end of right humerus, initial encounter 3. Essential hypertension Disposition: Admit. LEANNE to Dr. Hinton. Please see resident note for further details. By signing my name below, I, Moreno Barajas, attest that this documentation has been prepared under the direction and in the presence of Dr. Donahue. Signed: Marbella Snyder. I, Dr. Donahue, personally performed the services described in this documentation. All medical record entries made by the scribe were at my direction and in my presence. I have reviewed the chart and agree that the record reflects my personal performance and is accurate and complete. Electronically signed: Dr. Donahue Date: 04/21/22 Time: 12:55 AM TECHNICIAN * Antoinette Frazier RN - 04/21/2022 12:38 AM CST BIBEMS from OSH with complaint of elbow injury. Per EMS pt had a fall at 1830 and landed on right arm and has a deformity to right elbow . Upon arrival VSS, GCS 15, PMS intact to right arm. TECHNICIAN * Radha Caballero RN - 04/21/2022 12:31 AM CST Bed: [facility] Expected date: Expected time: Means of arrival: Comments: Rose transfer complicated elbow fx TECHNICIAN documented in this encounter Plan of Treatment Not on file documented as of this encounter Procedures Procedure Name Priority Date/Time Associated Diagnosis Comments XR ELBOW RIGHT 2VW Routine 04/23/2022 8: 53 AM MAIL TECHNICIAN Fall, initial encounter CBC W/O DIFFERENTIAL Routine 04/23/2022 3:29 AM MAIL TECHNICIAN Fall, initial encounter CBC W/O DIFFERENTIAL Routine 04/22/2022 1:11 AM MAIL TECHNICIAN Fall, initial encounter BASIC METABOLIC PANEL (CALCIUM TOTAL) Routine 04/22/2022 1:11 AM MAIL TECHNICIAN Fall, initial encounter BLOOD TYPE VERIFICATION STAT 04/21/2022 11:18 PM MAIL TECHNICIAN XR ELBOW RIGHT 3VW OR MORE Routine 04/21/2022 9:07 PM MAIL TECHNICIAN Fall, initial encounter FL AMBER SURGERY STAT 04/21/2022 7:18 PM MAIL TECHNICIAN Other closed displaced fracture of distal end of right humerus, initial encounter HI OSTEOTOMY HUMERUS 04/21/2022 3:31 PM MAIL TECHNICIAN Closed fracture of distal end of right humerus, unspecified fracture morphology, initial encounter Special Needs FLAT MASOOD, BRENNER BAG, LATERAL ARM CHU, C-ARM. OPEN REDUCTION INTERNAL FIXATION (ORIF) HUMERUS 04/21/2022 3:31 PM MAIL TECHNICIAN Closed fracture of distal end of right humerus, unspecified fracture morphology, initial encounter Special Needs FLAT MASOOD, BRENNER BAG, LATERAL ARM CHU, C-ARM. CT ELBOW RIGHT WO CONTRAST STAT 04/21/2022 6:36 AM MAIL TECHNICIAN Other closed displaced fracture of distal end of right humerus, initial encounter XR CHEST 1VW PORTABLE STAT 04/21/2022 6:26 AM MAIL TECHNICIAN Fall, initial encounter PTT SLH STAT 04/21/2022 3:45 AM MAIL TECHNICIAN Fall, initial encounter PT-INR [facility] STAT 04/21/2022 3:45 AM MAIL TECHNICIAN Fall, initial encounter TYPE + SCREEN PANEL STAT 04/21/2022 3 :45 AM MAIL TECHNICIAN Fall, initial encounter CBC W/O DIFFERENTIAL STAT 04/21/2022 3:45 AM MAIL TECHNICIAN Fall, initial encounter BASIC METABOLIC PANEL (CALCIUM TOTAL) STAT 04/21/2022 3:45 AM MAIL TECHNICIAN Fall, initial encounter ED MODERATE SEDATION Routine 04/21/2022 2:33 AM MAIL TECHNICIAN Fall, initial encounter Other closed displaced fracture of distal end of right humerus, initial encounter Essential hypertension XR ELBOW RIGHT 2VW STAT 04/21/2022 2: 30 AM MAIL TECHNICIAN Fall, initial encounter XR STRESS ANY JOINT STAT 04/21/2022 2 :06 AM MAIL TECHNICIAN Fall, initial encounter XR ELBOW RIGHT 2VW STAT 04/21/2022 1: 35 AM MAIL TECHNICIAN Fall, initial encounter XR HUMERUS RIGHT 2VW OR MORE STAT 04/21/2022 1:35 AM MAIL TECHNICIAN Fall, initial encounter documented in this encounter Results * XR ELBOW RIGHT 2VW (04/23/2022 8:53 AM MAIL TECHNICIAN) Anatomical Region Laterality Modality Upper Extremity Radiographic Davida ging 04/24/2022 10:4 0 AM MAIL TECHNICIAN Narrative 04/24/2022 2:24 PM MAIL TECHNICIAN PROCEDURE: ??XR ELBOW RIGHT 2VW, DATE/TIME OF EXAM: ??04/23/2022 8:54 AM, LOCATION ??[facility] INDICATION: W19.XXXA: Fall, initial encounter COMPARISON: [...] has been removed. Report dictated by Víctor Jraamillo MD, MD (resident care supervisor). I, E. Isin Akduman, MD have personally reviewed and interpreted this examination/study. > Interpreting Provider: Chema Grady MD on 04/24/2022 2:24 PM Procedure Note Sheree Grady MD - 04/24/2022 PROCEDURE: XR ELBOW RIGHT 2VW, DATE/TIME OF EXAM: 04/23/2022 8:54 AM, LOCATION [facility] INDICATION: W19.XXXA: Fall, initial encounter COMPARISON: [...] Report dictated by Víctor Jaramillo MD, MD (resident care supervisor). Chema Oro MD have personally reviewed and interpreted this examination/study. > Interpreting Provider: Chema Grady MD on 04/24/2022 2:24 PM Shai Pang MD DIAGNOSTIC IMAGING O RDERABLES * (ABNORMAL) CBC W/O DIFFERENTIAL (04/23/2022 3:29 AM MAIL TECHNICIAN) WBC 9.5 3.5 - 10.5 10? 3 /uL 04/23/2022 3:53 AM [facility] RBC 3.39(L) 3.80 - 5.20 10? 6 /uL 04/23/2022 3:53 AM [facility] Hemoglobin 9.8(L) 12.0 - 15.6 g/dL 04/23/2022 3:53 AM [facility] Hematocrit 30.7(L) 35.0 - 45.0 % 04/23/2022 3:53 AM [facility] MCV 90.6 80.7 - 98.3 fL 04/23/2022 3:53 AM [facility] MCH 28.9 26.7 - 34.0 pg 04/23/2022 3:53 AM [facility] MCHC 31.9 30.8 - 35.9 g/dL 04/23/2022 3:53 AM [facility] RDW-SD 46.1 36.0 - 50.0 fL 04/23/2022 3:53 AM [facility] RDW-CV 14.0 11.2 - 14.8 % 04/23/2022 3:53 AM [facility] Platelet Count 200 150 - 400 10? 3 /uL 04/23/2022 3:53 AM [facility] MPV 9.8 9.4 - 12.9 fL 04/23/2022 3:53 AM [facility] nRBC Absolute 0.00 0 10? 3 /uL 04/23/2022 3:53 AM [facility] nRBC Auto 0.0 0 /100 WBC 04/23/2022 3:53 AM [facility] Blood BLOOD SPECIMEN / Unknown Lab Venipuncture / Unknown 04/23/2022 3:29 AM MAIL TECHNICIAN 04/23/2022 3:39 AM [facility] Felton Donahue MD LAB - HEMATOLOGY ORD ERABLES [facility] [address] [place] [id number] [phone] * (ABNORMAL) CBC W/O DIFFERENTIAL (04/22/2022 1:11 AM MAIL TECHNICIAN) WBC 12.4(H) 3.5 - 10.5 10? 3 /uL 04/22/2022 2:23 AM [facility] RBC 3.96 3.80 - 5.20 10? 6 /uL 04/22/2022 2:23 AM [facility] Hemoglobin 11.5(L) 12.0 - 15.6 g/dL 04/22/2022 2:23 AM [facility] Hematocrit 36.1 35.0 - 45.0 % 04/22/2022 2:23 AM [facility] MCV 91.2 80.7 - 98.3 fL 04/22/2022 2:23 AM [facility] MCH 29.0 26.7 - 34.0 pg 04/22/2022 2:23 AM [facility] MCHC 31.9 30.8 - 35.9 g/dL 04/22/2022 2:23 AM [facility] RDW-SD 46.8 36.0 - 50.0 fL 04/22/2022 2:23 AM [facility] RDW-CV 14.0 11.2 - 14.8 % 04/22/2022 2:23 AM [facility] Platelet Count 258 150 - 400 10? 3 /uL 04/22/2022 2:23 AM [facility] MPV 10.3 9.4 - 12.9 fL 04/22/2022 2:23 AM [facility] nRBC Absolute 0.00 0 10? 3 /uL 04/22/2022 2:23 AM [facility] nRBC Auto 0.0 0 /100 WBC 04/22/2022 2:23 AM [facility] Blood BLOOD SPECIMEN / Unknown Lab Venipuncture / Unknown 04/22/2022 1:11 AM MAIL TECHNICIAN 04/22/2022 2:18 AM [facility] Felton Donahue MD LAB - HEMATOLOGY ORD ERABLES [facility] [address] [place] [id number], [facility] [phone] * (ABNORMAL) BASIC METABOLIC PANEL (CALCIUM TOTAL) (04/22/2022 1:11 AM [facility]) BUN 14 7 - 26 mg/dL 04/22/2022 2:43 AM [facility] Creatinine 0.67 0.56 - 0.96 mg/dL 04/22/2022 2:43 AM [facility] Sodium 137 136 - 145 mmol/L 04/22/2022 2:43 AM [facility] Potassium 4.3 3.5 - 4.5 mmol/L 04/22/2022 2:43 AM [facility] Chloride 101 98 - 107 mmol/L 04/22/2022 2:43 AM [facility] CO2 24 22 - 29 mmol/L 04/22/2022 2:43 AM [facility] Glucose 196(H) 70 - 115 mg/dL 04/22/2022 2:43 AM [facility] Calcium 8.7 8.4 - 10.2 mg/dL 04/22/2022 2:43 AM [facility] Anion Gap 16 8 - 18 04/22/2022 2:43 AM [facility] BUN/Creatinine Ratio 21 7 - 23 04/22/2022 2:43 AM [facility] Osmolality Calculated 290 270 - 300 mOsm/kg 04/22/2022 2:43 AM [facility] eGFR by CKD-EPI >90 >=90 mL/min/1.7 3 m2 04/22/2022 2:43 AM [facility] Blood BLOOD SPECIMEN / Unknown Lab Venipuncture / Unknown 04/22/2022 1:11 AM MAIL TECHNICIAN 04/22/2022 2:20 AM MAIL TECHNICIAN Felton Donahue MD LAB - CHEMISTRY [facility] [address] [id number], [employer] [phone] * BLOOD TYPE VERIFICATION (04/21/2022 11:18 PM MAIL TECHNICIAN) ABO Rh A NEG 04/21/2022 11:52 PM MAIL TECHNICIAN [facility] BLOOD BANK LAB Blood Bank BLOOD SPECIMEN / Unknown Lab Venipuncture / Unknown 04/21/2022 11:18 PM MAIL TECHNICIAN 04/21/2022 11:30 PM MAIL TECHNICIAN Denisse Veras MD LAB - BLOOD BANK ORD MOHIT [facility] BLOOD BANK LAB [address] [place] [id number], [employer] [phone] * XR ELBOW RIGHT 3VW OR MORE (04/21/2022 9:07 PM MAIL TECHNICIAN) Anatomical Region Laterality Modality Upper Extremity Radiographic Davida ging 04/22/2022 1:19 PM MAIL TECHNICIAN Narrative 04/22/2022 2:17 PM MAIL TECHNICIAN PROCEDURE: ??XR ELBOW RIGHT 3VW OR MORE, DATE/TIME OF EXAM: ??04/21/2022 9:07 PM, LOCATION ??[facility] INDICATION: W19.XXXA: Fall, initial encounter ADDITIONAL CLINICAL INFORMATION: Ordering Provider Reason For Exam: ??trauma COMPARISON: Right elbow radiograph and right elbow CT dated 04/21/2022 FINDINGS/IMPRESSION: splint is present which limits evaluation of the fine bony and soft tissue details. Redemonstration of the comminuted intra-articular fracture of the distal humerus with involvement of the trochlea and capitellum with interval reduction and fixation with multiple plates and screws. Hardware appears intact. There is improved anatomic alignment of the fracture fragments. Postsurgical changes including numerous skin leighann and placement of a surgical drain are seen. Report dictated by Víctor Jaramillo MD, MD (resident care supervisor). Benjamin Oro MD have personally reviewed and interpreted this examination/study. > Interpreting Provider: Benjamin Barillas MD on 04/22/2022 2:17 PM Procedure Note Benjamin Barillas MD - 04/22/2022 PROCEDURE: XR ELBOW RIGHT 3VW OR MORE, DATE/TIME OF EXAM: 39:07 PM, LOCATION [facility] INDICATION: W19.XXXA: Fall, initial encounter ADDITIONAL CLINICAL INFORMATION: Ordering Provider Reason For Exam: trauma COMPARISON: Right elbow radiograph and right elbow CT dated 04/21/2022 FINDINGS/IMPRESSION: splint is present which limits evaluation of the fine bony and softtissue details. Redemonstration of the comminuted intra-articular fracture of the distal humerus with involvement of the trochlea and capitellum with interval reduction and fixation with multiple plates and screws. Hardware appears intact. There is improved anatomic alignment of the fracture fragments. Postsurgical changes including numerous skin leighann and placement of a surgical drain are seen. Report dictated by Víctor Jaramillo MD, MD (resident care supervisor). Benjamin Oro MD have personally reviewed and interpreted this examination/study. > Interpreting Provider: Benjamin Barillas MD on 04/22/2022 2:17 PM Shai Levi MD DIAGNOSTIC IMAGING O RDERABLES * FL AMBER SURGERY (04/21/2022 7:18 PM MAIL TECHNICIAN) Narrative [facility] RADIOLOGY - 04/21/2022 7:20 PM MAIL TECHNICIAN Fluoroscopy was used for this exam in the OR. Please see the Operative report. Shai Levi MD FLUOROSCOPY ORDERABL ES [facility] RADIOLOGY * CT ELBOW RIGHT WO CONTRAST (04/21/2022 6:36 AM MAIL TECHNICIAN) Anatomical Region Laterality Modality Upper Extremity Computed Tomogra phy 04/21/2022 6:45 AM MAIL TECHNICIAN Impressions 04/21/2022 8:33 AM MAIL TECHNICIAN IMPRESSION: 1.Comminuted moderately displaced intra-articular fracture of the distal humerus. 2.Suspected small chip fracture at the olecranon process. 3.Mild elbow subluxation. 4.Right rib fracture. > Dictated by Luis Silva MD (resident care supervisor) I, Benjamin Barillas MD have personally reviewed and interpreted this examination/study. > Interpreting Provider: Benjamin Barillas MD on 04/21/2022 8:33 AM Narrative 04/21/2022 8:33 AM MAIL TECHNICIAN PROCEDURE: ??CT ELBOW RIGHT WO CONTRAST, DATE/TIME OF EXAM: ??04/21/2022 6:36 AM, LOCATION ??[facility] INDICATION: S42.491A: Other closed displaced fracture [...] CONTRAST, DATE/TIME OF EXAM: 36:36 AM, LOCATION [facility] INDICATION: S42.491A: Other closed displaced fracture [...] fracture. > Dictated by Luis Silva MD (resident care supervisor) I, Benjamin Barillas MD have personally reviewed and interpreted this examination/study. > Interpreting Provider: Benjamin Barillas MD on 04/21/2022 8:33 AM Felton Donahue MD CT ORDERABLES * XR CHEST 1VW PORTABLE (04/21/2022 6:26 AM MAIL TECHNICIAN) Anatomical Region Laterality Modality Chest Radiographic Davida ging 04/21/2022 6:27 AM MAIL TECHNICIAN Narrative 04/21/2022 8:49 AM MAIL TECHNICIAN PROCEDURE: ??XR CHEST 1VW PORTABLE, DATE/TIME OF EXAM: ??04/21/2022 6:26 AM, LOCATION ??[facility] INDICATION: W19.XXXA: Fall, initial encounter ADDITIONAL [...] head. Report dictated by Simin Mayes MD (resident care supervisor). Funmilayo Oro MD have personally reviewed and interpreted this examination/study. > Interpreting Provider: Funmilayo Diaz MD on 04/21/2022 8:49 AM Procedure Note Funmilayo Diaz MD - 04/21/2022 PROCEDURE: XR CHEST 1VW PORTABLE, DATE/TIME OF EXAM: 04/21/2022 6:26AM, LOCATION [facility] INDICATION: W19.XXXA: Fall, initial encounter ADDITIONAL [...] head. Report dictated by Simin Mayes MD (resident care supervisor). Funmilayo Oro MD have personally reviewed and interpreted this examination/study. > Interpreting Provider: Fnumilayo Diaz MD on 04/21/2022 8:49 AM Felton Donahue MD DIAGNOSTIC IMAGING O RDERABLES * TYPE + SCREEN PANEL (04/21/2022 3:45 AM MAIL TECHNICIAN) Antibody Screen NEG 5:04 AM MAIL TECHNICIAN [facility] ABO Rh A NEG 04/21/2022 5:04 AM MAIL TECHNICIAN [facility] Blood Bank BLOOD SPECIMEN / Unknown Venipuncture / Unknown 04/21/2022 3:45 AM MAIL TECHNICIAN 04/21/2022 3:54 AM MAIL TECHNICIAN Felton Donahue MD LAB - BLOOD BANK ORD ERABLES Performing Organization Address [facility] [address]/[facility] Co de Phone Number [facility] [address] [place] [address], [facility] [phone] * PTT [facility] (04/21/2022 3:45 AM MAIL TECHNICIAN) APTT 30.1 23.0 - 38.4 Seconds 04/21/2022 4:21 AM [facility] Comment:Suggested therapeuti c range for full dose I.V. unfractionated heparin therapy for venous thromboembolism is 71 to 109 seconds. Blood BLOOD SPECIMEN / Unknown Venipuncture / Unknown 04/21/2022 3:45 AM MAIL TECHNICIAN 04/21/2022 3:54 AM MAIL TECHNICIAN Felton Donahue MD LAB - COAGULATION OR DERABLES Performing Organization Address [facility] [address]/[facility] Co de Phone Number [facility] [address] [place] [phone], [facility] [phone] * PT-INR [facility] (04/21/2022 3:45 AM MAIL TECHNICIAN) PT 13.5 12.1 - 14.8 Seconds 04/21/2022 4:20 AM [facility] INR 1.0 See Comment 04/21/2022 4:20 AM [facility] Comment:The suggested therap eutic range for standard coumadin (warfarin) therapy is an INR of 2.0-3.0. For high-risk patients (Mechanical Mitral Valve Prosthesis, etc.), the suggested prophylactic therapeutic range is an INR of 2.5-3.5. Blood BLOOD SPECIMEN / Unknown Venipuncture / Unknown 04/21/2022 3:45 AM MAIL TECHNICIAN 04/21/2022 3:54 AM MAIL TECHNICIAN Felton Donahue MD LAB - COAGULATION OR DERABLES [facility] [address] [place] [address], [facility] [phone] * (ABNORMAL) BASIC METABOLIC PANEL (CALCIUM TOTAL) (04/21/2022 3:45 AM MAIL TECHNICIAN) BUN 16 7 - 26 mg/dL 04/21/2022 4:24 AM [facility] Creatinine 0.70 0.56 - 0.96 mg/dL 04/21/2022 4:24 AM [facility] Sodium 137 136 - 145 mmol/L 04/21/2022 4:24 AM [facility] Potassium 4.4 3.5 - 4.5 mmol/L 04/21/2022 4:24 AM [facility] Chloride 106 98 - 107 mmol/L 04/21/2022 4:24 AM [facility] CO2 23 22 - 29 mmol/L 04/21/2022 4:24 AM [facility] Glucose 157(H) 70 - 115 mg/dL 04/21/2022 4:24 AM [facility] Calcium 8.6 8.4 - 10.2 mg/dL 04/21/2022 4:24 AM [facility] Anion Gap 12 8 - 18 04/21/2022 4:24 AM [facility] BUN/Creatinine Ratio 23 7 - 23 04/21/2022 4:24 AM [facility] Osmolality Calculated 288 270 - 300 mOsm/kg 04/21/2022 4:24 AM [facility] eGFR by CKD-EPI >90 >=90 mL/min/1.7 3 m2 04/21/2022 4:24 AM [facility] Blood BLOOD SPECIMEN / Unknown Venipuncture / Unknown 04/21/2022 3:45 AM MAIL TECHNICIAN 04/21/2022 3:54 AM [facility] Felton Donahue MD LAB - CHEMISTRY BEVERLY GARRETT [facility] [address] [place] [address], [facility] [phone] * (ABNORMAL) CBC W/O DIFFERENTIAL (04/21/2022 3:45 AM [facility]) WBC 12.7(H) 3.5 - 10.5 10? 3 /uL 04/21/2022 3:57 AM [facility] RBC 4.22 3.80 - 5.20 10? 6 /uL 04/21/2022 3:57 AM [facility] Hemoglobin 12.3 12.0 - 15.6 g/dL 04/21/2022 3:57 AM [facility] Hematocrit 37.6 35.0 - 45.0 % 04/21/2022 3:57 AM [facility] MCV 89.1 80.7 - 98.3 fL 04/21/2022 3:57 AM [facility] MCH 29.1 26.7 - 34.0 pg 04/21/2022 3:57 AM [facility] MCHC 32.7 30.8 - 35.9 g/dL 04/21/2022 3:57 AM [facility] RDW-SD 44.2 36.0 - 50.0 fL 04/21/2022 3:57 AM [facility] RDW-CV 13.6 11.2 - 14.8 % 04/21/2022 3:57 AM [facility] Platelet Count 253 150 - 400 10? 3 /uL 04/21/2022 3:57 AM [facility] MPV 9.9 9.4 - 12.9 fL 04/21/2022 3:57 AM [facility] nRBC Absolute 0.00 0 10? 3 /uL 04/21/2022 3:57 AM [facility] nRBC Auto 0.0 0 /100 WBC 04/21/2022 3:57 AM [facility] Blood BLOOD SPECIMEN / Unknown Venipuncture / Unknown 04/21/2022 3:45 AM MAIL TECHNICIAN 04/21/2022 3:53 AM [facility] Felton Donahue MD LAB - HEMATOLOGY ORD ERABLES [facility] [address] [place] [address] [phone] * Moderate Sedation (04/21/2022 2:33 AM MAIL TECHNICIAN) Narrative Felton Donahue MD - 04/21/2022 2:33 AM MAIL TECHNICIAN Felton Donahue MD ? 04/21/2022 ??7:00 AM [...] ??Alternatives discussed: ??Analgesia without sedation and anxiolysis Leighton protocol: ??Procedure explained and questions answered to [...] and propofol) ??Intra-procedure monitoring: ??Blood pressure monitoring, manager coding, continuous capnometry, continuous pulse oximetry, frequent LOC [...] MD PROCEDURE/MINOR SURG ICAL ORDERABLES * XR ELBOW RIGHT 2VW (04/21/2022 2:30 AM MAIL TECHNICIAN) Anatomical Region Laterality Modality Upper Extremity Radiographic Davida ging 04/21/2022 2:56 AM MAIL TECHNICIAN Narrative 04/21/2022 8:45 AM MAIL TECHNICIAN PROCEDURE: ??XR ELBOW RIGHT 2VW, DATE/TIME OF EXAM: ??04/21/2022 2:30 AM, LOCATION ??[facility] INDICATION: W19.XXXA: Fall, initial encounter ADDITIONAL CLINICAL INFORMATION: Ordering Provider Reason For Exam: ??post reduction COMPARISON: X-ray right elbow 04/21/2022. FINDINGS-IMPRESSION: An external splint obscures bony and soft tissue details. Redemonstrated moderately displaced, comminuted fracture of the distal humerus extending from the medial epicondyle to the articular surface, unchanged in alignment. The elbow joint alignment is anatomical. Tiny ossific fragment adjacent to the olecranon is better visualized on the prior x-ray. Report dictated by Simin Mayes MD (resident care supervisor). Funmilayo Oro MD have personally reviewed and interpreted this examination/study. > Interpreting Provider: Funmilayo Diaz MD on 04/21/2022 8:45 AM Procedure Note Funmilayo Diaz MD - 04/21/2022 PROCEDURE: XR ELBOW RIGHT 2VW, DATE/TIME OF EXAM: 04/21/2022 2:30 AM, LOCATION [facility] INDICATION: W19.XXXA: Fall, initial encounter ADDITIONAL CLINICAL INFORMATION: Ordering Provider Reason For Exam: post reduction COMPARISON: X-ray right elbow 04/21/2022. FINDINGS-IMPRESSION: An external splint obscures bony and soft tissue details. Redemonstrated moderately displaced, comminuted fracture of the distal humerus extending from the medial epicondyle to the articular surface, unchanged in alignment. The elbow joint alignment is anatomical. Tiny ossific fragment adjacent to the olecranon is better visualized onthe prior x-ray. Report dictated by Simin Mayes MD (resident care supervisor). Funmilayo Oro MD have personally reviewed and interpreted this examination/study. > Interpreting Provider: Funmilayo Diaz MD on 04/21/2022 8:45 AM Felton Donahue MD DIAGNOSTIC IMAGING O RDERABLES * XR STRESS ANY JOINT (04/21/2022 2:06 AM MAIL TECHNICIAN) Anatomical Region Laterality Modality Lower Extremity, Upper Extremity Radiographic Imaging 04/21/2022 1:46 AM MAIL TECHNICIAN Impressions 04/21/2022 8:44 AM MAIL TECHNICIAN IMPRESSION: Moderately displaced, comminuted fracture of the distal humerus extending from the medial epicondyle to the articular surface. Tiny ossific fragment adjacent to the olecranon may represent tendinous calcification versus a small avulsion fracture. Report dictated by Simin Mayes MD (resident care supervisor). Funmilayo Oro MD have personally reviewed and interpreted this examination/study. > Interpreting Provider: Funmilayo Diaz MD on 04/21/2022 8:44 AM Narrative 04/21/2022 8:44 AM MAIL TECHNICIAN PROCEDURE: ??XR HUMERUS RIGHT 2VW OR MORE, XR ELBOW RIGHT 2VW, XR STRESS ANY JOINT, DATE/TIME OF EXAM: ??04/21/2022 1:36 AM, LOCATION ??[facility] INDICATION: W19.XXXA: Fall, initial encounter ADDITIONAL CLINICAL INFORMATION: Ordering Provider Reason For Exam: ??Trauma (accession [id number]), Trauma (accession [id number]), trauma (accession [id number]) COMPARISON: None. FINDINGS: Right humerus: There is [...] DATE/TIME OF EXAM: 04/21/2022 1:36 AM, LOCATION [facility] INDICATION: W19.XXXA: Fall, initial encounter ADDITIONAL CLINICAL INFORMATION: Ordering Provider Reason For Exam: Trauma (accession [id number]), Trauma (accession [id number]), trauma (accession [id number]) COMPARISON: None. FINDINGS: Right humerus: There is [...] small avulsion fracture. Report dictated by Simin aMyes MD (resident care supervisor). Funmilayo Oro MD have personally reviewed and interpreted this examination/study. > Interpreting Provider: Funmilayo Diaz MD on 04/21/2022 8:44 AM Felton Donahue MD DIAGNOSTIC IMAGING O RDERABLES * XR HUMERUS RIGHT 2VW OR MORE (04/21/2022 1:35 AM MAIL TECHNICIAN) Anatomical Region Laterality Modality Upper Extremity Radiographic Davida ging 04/21/2022 1:46 AM MAIL TECHNICIAN Impressions 04/21/2022 8:44 AM MAIL TECHNICIAN IMPRESSION: Moderately displaced, comminuted fracture of the distal humerus extending from the medial epicondyle to the articular surface. Tiny ossific fragment adjacent to the olecranon may represent tendinous calcification versus a small avulsion fracture. Report dictated by Simin Mayes MD (resident care supervisor). Funmilayo Oro MD have personally reviewed and interpreted this examination/study. > Interpreting Provider: Funmilayo Diaz MD on 04/21/2022 8:44 AM Narrative 04/21/2022 8:44 AM MAIL TECHNICIAN PROCEDURE: ??XR HUMERUS RIGHT 2VW OR MORE, XR ELBOW RIGHT 2VW, XR STRESS ANY JOINT, DATE/TIME OF EXAM: ??04/21/2022 1:36 AM, LOCATION ??[facility] INDICATION: W19.XXXA: Fall, initial encounter ADDITIONAL CLINICAL INFORMATION: Ordering Provider Reason For Exam: ??Trauma (accession [id number]), Trauma (accession [id number]), trauma (accession [id number]) COMPARISON: None. FINDINGS: Right humerus: There is [...] DATE/TIME OF EXAM: 04/21/2022 1:36 AM, LOCATION [facility] INDICATION: W19.XXXA: Fall, initial encounter ADDITIONAL CLINICAL INFORMATION: Ordering Provider Reason For Exam: Trauma (accession [id number]), Trauma (accession [id number]), trauma (accession [id number]) COMPARISON: None. FINDINGS: Right humerus: There is [...] fracture. Report dictated by Simin Mayes MD (resident care supervisor). I, Funmilayo Diaz MD have personally reviewed and interpreted this examination/study. > Interpreting Provider: Funmilayo Diaz MD on 04/21/2022 8:44 AM Felton Donahue MD DIAGNOSTIC IMAGING O RDERABLES * XR ELBOW RIGHT 2VW (04/21/2022 1:35 AM MAIL TECHNICIAN) Anatomical Region Laterality Modality Upper Extremity Radiographic Davida ging 04/21/2022 1:46 AM MAIL TECHNICIAN Impressions 04/21/2022 8:44 AM MAIL TECHNICIAN IMPRESSION: Moderately displaced, comminuted fracture of the distal humerus extending from the medial epicondyle to the articular surface. Tiny ossific fragment adjacent to the olecranon may represent tendinous calcification versus a small avulsion fracture. Report dictated by Simin Mayes MD (resident care supervisor). IFunmilayo MD have personally reviewed and interpreted this examination/study. > Interpreting Provider: Funmilayo Diaz MD on 04/21/2022 8:44 AM Narrative 04/21/2022 8:44 AM MAIL TECHNICIAN PROCEDURE: ??XR HUMERUS RIGHT 2VW OR MORE, XR ELBOW RIGHT 2VW, XR STRESS ANY JOINT, DATE/TIME OF EXAM: ??04/21/2022 1:36 AM, LOCATION ??[facility] INDICATION: W19.XXXA: Fall, initial encounter ADDITIONAL CLINICAL INFORMATION: Ordering Provider Reason For Exam: ??Trauma (accession [id number]), Trauma (accession [id number]), trauma (accession [id number]) COMPARISON: None. FINDINGS: Right humerus: There is [...] DATE/TIME OF EXAM: 04/21/2022 1:36 AM, LOCATION [facility] INDICATION: W19.XXXA: Fall, initial encounter ADDITIONAL CLINICAL INFORMATION: Ordering Provider Reason For Exam: Trauma (accession [id number]), Trauma (accession [id number]), trauma (accession [id number]) COMPARISON: None. FINDINGS: Right humerus: There is [...] fracture. Report dictated by Simin Mayes MD (resident care supervisor). I, Funmilayo Diaz MD have personally reviewed and interpreted this examination/study. > Interpreting Provider: Funmilayo Diaz MD on 04/21/2022 8:44 AM Felton Donahue MD DIAGNOSTIC IMAGING O RDERABLES documented in this encounter Visit Diagnoses Diagnosis Fall, initial encounter- Primary Fall, initial encounter Other closed displaced fracture of distal end of right humerus, initial encounter Essential hypertension Other closed displaced fracture of distal end of right humerus, initial encounter Essential hypertension documented in this encounter Administered Medications Inactive Administered Medications - up to 3 most recent administrations Medication Order MAR Action Action Date Dose Rate Site acetaminophen (Tylenol) tablet 650 mg 650 mg, Oral, EVERY 6 HOURS, 20 doses, First dose on 04/21/22 at 0645, Last dose on 04/26/22 at 0000, Patient preference for lesser PRN pain meds may be honored when the patient requests a less strong medication, a lower dose, or a less intrusive route of administration when the lesser drug, dose and route have been ordered for the patient. This patient request must be documented in the MAR. $ Given 04/23/2022 11:47 AM MAIL TECHNICIAN 650 mg $ Given 04/23/2022 6:21 AM MAIL TECHNICIAN 650 mg $ Given 04/23/2022 12:21 AM MAIL TECHNICIAN 650 mg [id number] (Maalox; Mylanta) suspension 20 mL 20 mL, Oral, EVERY 6 HOURS PRN, GI Upset, Starting on Thu04/21/22 at 0601, Until Thu04/23/22 at 1900, Shake well before using. docusate sodium (Colace) capsule 100 mg 100 mg, Oral, 2 TIMES DAILY, First dose on Thu04/21/22 at 0900, Until Discontinued $ Given 04/23/2022 8:53 AM MAIL TECHNICIAN 100 mg $ Given 04/22/2022 9:23 AM MAIL TECHNICIAN 100 mg $ Given 04/21/2022 8:53 PM MAIL TECHNICIAN 100 mg enoxaparin (Lovenox) injection 40 mg 40 mg, Subcutaneous, DAILY, First dose on Thu04/21/22 at 0900, Until Discontinued, (for prefilled syringes) do not expel air bubble from the syringe prior to the injection Remind Patient to not rub injection site. Could cause hematoma. $ Given 04/23/2022 8:53 AM MAIL TECHNICIAN 40 mg Ab dominal Tissue $ Given 04/22/2022 9:23 AM MAIL TECHNICIAN 40 mg Le ft Arm $ Given 04/21/2022 7:52 AM MAIL TECHNICIAN 40 mg Ab d Right Lower Quadrant fentaNYL (PF) (Sublimaze) injection 50 mcg 50 mcg, Intravenous, EVERY 10 MIN PRN, Moderate Pain, 4 doses, Starting on Thu04/21/22 at 2001, Until Thu04/21/22 at 2041, Maximum total of 4 doses. If patient reaches max total dose, please consult anesthesiologist prior to further administration of pain meds. Hold pain meds if there are signs of hypoventilation. Patient preference for lesser PRN pain meds may be honored when the patient requests a less strong medication, a lower dose, or a less intrusive route of administration when the lesser drug, dose and route have been ordered for the patient. This patient request must be documented in the MAR., PACU $ Given 04/21/2022 7:55 PM MAIL TECHNICIAN 50 mcg FLUoxetine (PROzac) capsule 40 mg 40 mg, Oral, 2 TIMES DAILY, First dose on Thu04/21/22 at 0700, Until Discontinued $ Given 04/23/2022 11:47 AM MAIL TECHNICIAN 40 mg $ Given 04/23/2022 6:21 AM MAIL TECHNICIAN 40 mg $ Given 04/22/2022 11:40 AM MAIL TECHNICIAN 40 mg HYDROmorphone (Dilaudid) injection 0.4 mg 0.4 mg, Intravenous, EVERY 3 HOURS PRN, breakthrough, Starting on Thu04/21/22 at 0601, Until Thu04/23/22 at 1900, If oral route is unavailable. Patient preference for lesser PRN pain meds may be honored when the patient requests a less strong medication, a lower dose, or a less intrusive route of administration when the lesser drug, dose and route have been ordered for the patient. This patient request must be documented in the MAR. HYDROmorphone (Dilaudid) injection 0.5 mg 0.5 mg, Intravenous, NOW, 1 dose, On Thu04/21/22 at 0115, Patient preference for lesser PRN pain meds may be honored when the patient requests a less strong medication, a lower dose, or a less intrusive route of administration when the lesser drug, dose and route have been ordered for the patient. This patient request must be documented in the MAR. $ Given 04/21/2022 1:09 AM MAIL TECHNICIAN 0.5 m g HYDROmorphone (Dilaudid) injection 0.5 mg 0.5 mg, Intravenous, EVERY 4 HOURS PRN, Moderate Pain, Severe Pain, Starting on Thu04/21/22 at 0447, Until Thu04/23/22 at 1900, Patient preference for lesser PRN pain meds may be honored when the patient requests a less strong medication, a lower dose, or a less intrusive route of administration when the lesser drug, dose and route have been ordered for the patient. This patient request must be documented in the MAR. $ Given 04/21/2022 5:54 AM MAIL TECHNICIAN 0.5 m g ketamine (Ketalar) injection Intravenous, CODE PRN, Starting on Thu04/21/22 at 0157, Until Thu04/21/22 at 0217 $ Given 04/21/2022 2:17 AM CS T 10 mg $ Given 04/21/2022 1:57 AM MAIL TECHNICIAN 30 mg lactated ringers infusion at 75 mL/hr, Intravenous, CONTINUOUS, Starting on Thu04/21/22 at 0630, Until Thu04/23/22 at 1900 $ New Bag/Syringe 04/22/2022 4:12 PM MAIL TECHNICIAN 75 mL/hr $ New Bag/Syringe 04/22/2022 12:33 AM MAIL TECHNICIAN 75 mL /hr $ New Bag/Syringe 04/21/2022 6:27 AM MAIL TECHNICIAN 75 mL/ hr losartan (Cozaar) tablet 100 mg 100 mg, Oral, NOW, 1 dose, On Thu04/21/22 at 0500 $ Given 04/21/2022 5:10 AM MAIL TECHNICIAN 100 mg losartan (Cozaar) tablet 100 mg 100 mg, Oral, DAILY, First dose on Thu04/21/22 at 0900, Until Discontinued $ Given 04/23/2022 8:53 AM MAIL TECHNICIAN 100 mg $ Given 04/22/2022 9:23 AM MAIL TECHNICIAN 100 mg $ Given 04/21/2022 7:51 AM MAIL TECHNICIAN 100 mg melatonin tablet 3 mg 3 mg, Oral, AT BEDTIME PRN, Insomnia, Starting on Thu04/21/22 at 0601, Until Thu04/23/22 at 1900 methocarbamol (Robaxin) tablet 750 mg 750 mg, Oral, EVERY 6 HOURS PRN, Muscle Spasms, Starting on Thu04/21/22 at 0602, Until Thu04/23/22 at 1900 $ Given 04/23/2022 6:21 AM MAIL TECHNICIAN 750 mg $ Given 04/22/2022 6:20 PM MAIL TECHNICIAN 750 mg $ Given 04/22/2022 9:23 AM MAIL TECHNICIAN 750 mg ondansetron (disintegrating) (Zofran ODT) tablet 4 mg 4 mg, Oral, EVERY 6 HOURS PRN, Nausea/Vomiting, Starting on Thu04/21/22 at 0601, Until Thu04/23/22 at 1900, Dissolved orally on tongue Dissolved orally on tongue ondansetron (Zofran) injection 4 mg 4 mg, Intravenous, EVERY 6 HOURS PRN, Nausea/Vomiting, Starting on Thu04/21/22 at 0601, Until Thu04/23/22 at 1900, Administer IV if patient is NPO, actively vomiting, or unable to swallow. oxybutynin CR 24hr (Ditropan-XL) tablet 10 mg 10 mg, Oral, DAILY, First dose on Thu04/21/22 at 0900, Until Discontinued, Do not crush, chew, or cut in half. $ Given 04/23/2022 8:52 AM MAIL TECHNICIAN 10 mg $ Given 04/22/2022 9:23 AM MAIL TECHNICIAN 10 mg $ Given 04/21/2022 7:51 AM MAIL TECHNICIAN 10 mg oxyCODONE (immediate release) (Roxicodone) tablet 10 mg 10 mg, Oral, EVERY 4 HOURS PRN, Severe Pain, Starting on Thu04/21/22 at 0601, Until Thu04/23/22 at 1900, Patient preference for lesser PRN pain meds may be honored when the patient requests a less strong medication, a lower dose, or a less intrusive route of administration when the lesser drug, dose and route have been ordered for the patient. This patient request must be documented in the MAR., Allow a repeat dose for severe pain? No $ Given 04/22/2022 6:20 PM MAIL TECHNICIAN 10 mg $ Given 04/22/2022 1:54 PM MAIL TECHNICIAN 10 mg $ Given 04/22/2022 3:36 AM MAIL TECHNICIAN 10 mg oxyCODONE (immediate release) (Roxicodone) tablet 5 mg 5 mg, Oral, EVERY 4 HOURS PRN, Moderate Pain, Starting on Thu04/21/22 at 0600, Until Thu04/23/22 at 1900, Patient preference for lesser PRN pain meds may be honored when the patient requests a less strong medication, a lower dose, or a less intrusive route of administration when the lesser drug, dose and route have been ordered for the patient. This patient request must be documented in the MAR. $ Given 04/22/2022 9:23 AM MAIL TECHNICIAN 5 mg polyethylene glycol 3350 (Miralax) packet 17 g 17 g, Oral, DAILY PRN, Constipation, Starting on Thu04/21/22 at 0601, Until Thu04/23/22 at 1900, Mix in 8 ounces of water, juice, soda, coffee or tea prior to administration propofol (Diprivan) injection Intravenous, CODE CONTINUOUS PRN, Starting on Thu04/21/22 at 0157, Until Thu04/21/22 at 0213 $ New Bag/Syringe 04/21/2022 2:13 AM MAIL TECHNICIAN 10 mg $ New Bag/Syringe 04/21/2022 2:05 AM MAIL TECHNICIAN 10 mg $ New Bag/Syringe 04/21/2022 1:57 AM MAIL TECHNICIAN 30 mg ropivacaine 0.2% On-Q C-bloc Mtkexm-T-Hmli single catheter infusion 2 mg/ml 600 ml 1,200 mg, at 2-10 mL/hr, Injection, CONTINUOUS, Starting on Thu04/21/22 at 1600, Until Thu04/23/22 at 1900, Single catheter On-Q C-bloc infusion pump 1. May increase rate by 2 mL for very severe pain every 15 minutes. 2. Evaluate pain after 1 hour and may repeat if needed up to a total of 10 mL/hr. 3. Decrease rate by 2 mL/hr if patient complains of numbness/tingling of extremity. 4. Reduce rate to 2 mL/hr (or lower depending on patient's level of numbness) one hour before Physical/Occupational Therapy appointment to ensure that patient has quad strength. 5. Evaluate patient's lower extremity strength prior to getting them out of bed. If decreased lower extremity strength, stop infusion and keep patient on bedrest for one hour. 6. Repeat every hour as needed, Pre-op / Post-op $ New Bag/Syringe 04/21/2022 7:39 PM MAIL TECHNICIAN 1,200 mg 2 mL/hr documented in this encounter Active and Recently Administered Medications Times are shown in MAIL TECHNICIAN. Scheduled Medication Order 04/21/2022 04/22/2022 04/23/2022 acetaminophen (Tylenol) tablet 650 mg 650 mg, Oral, EVERY 6 HOURS, 20 doses, First dose on Thu04/21/22 at 0645, Last dose on Thu04/26/22 at 0000, Patient preference for lesser PRN pain meds may be honored when the patient requests a less strong medication, a lower dose, or a less intrusive route of administration when the lesser drug, dose and route have been ordered for the patient. This patient request must be documented in the MAR. 0625 ($ Given - Provider: Antoinette Frazier RN)1146 ($ Given - Provider: Kelly Ferrera RN)2031 (Not Administered - Provider: Phyllis Carbone RN - Reason: See Comments - Comment: medication ordered on prior shift.) 0009 ($ Given - Provider: Phyllis Carbone RN)0553 ($ Given - Provider: Phyllis Carbone, MULU)1140 ($ Given - Provider: Liza Xie RN)1820 ($ Given - Provider: Liza Xie RN) 0021 ($ Given - Provider: Phyllis Carbone RN)0621 ($ Given - Provider: Phyllis Carbone, RN)1147 ($ Given - Provider: Meme Chu, MULU) docusate sodium (Colace) capsule 100 mg 100 mg, Oral, 2 TIMES DAILY, First dose on Thu04/21/22 at 0900, Until Discontinued 0751 ($ Given - Provider: Kelly Ferrera RN)2052 ($ Given - Provider: Phyllis Carbone RN) 0923 ($ Given - Provider: Liza Xie RN)203 (Not Administered - Provider: Phyllis Carbone RN - Reason: Refused-Patient) 0853 ($ Given - Provider: Meme Chu RN) enoxaparin (Lovenox) injection 40 mg 40 mg, Subcutaneous, DAILY, First dose on Thu04/21/22 at 0900, Until Discontinued, (for prefilled syringes) do not expel air bubble from the syringe prior to the injection Remind Patient to not rub injection site. Could cause hematoma. 0752 ($ Given - Provider: Kelly Ferrera RN) 0923 ($ Given - Provider: Liza Xie RN) 0853 ($ Given - Provider: Meme Chu, MULU) FLUoxetine (PROzac) capsule 40 mg 40 mg, Oral, 2 TIMES DAILY, First dose on Thu04/21/22 at 0700, Until Discontinued 0625 ($ Given - Provider: Antoinette Frazier RN)1146 ($ Given - Provider: Kelly Ferrera RN) 0609 ($ Given - Provider: Phyllis Carbone RN)1140 ($ Given - Provider: Liza Xie RN) 0621 ($ Given - Provider: Phyllis Carbone, MULU)1147 ($ Given - Provider: Meme Chu RN) HYDROmorphone (Dilaudid) injection 0.5 mg (COMPLETED) 0.5 mg, Intravenous, NOW, 1 dose, On Thu04/21/22 at 0115, Patient preference for lesser PRN pain meds may be honored when the patient requests a less strong medication, a lower dose, or a less intrusive route of administration when the lesser drug, dose and route have been ordered for the patient. This patient request must be documented in the MAY. 010 ($ Given - Provider: Antoinette Frazier RN) losartan (Cozaar) tablet 100 mg (COMPLETED) 100 mg, Oral, NOW, 1 dose, On Thu04/21/22 at 0500 0510 ($ Given - Provider: Antoinette Frazier RN) losartan (Cozaar) tablet 100 mg 100 mg, Oral, DAILY, First dose on Thu04/21/22 at 0900, Until Discontinued 0751 ($ Given - Provider: Kelly Ferrera RN) 0923 ($ Given - Provider: Liza Xie RN) 0853 ($ Given - Provider: Meme Chu RN) oxybutynin CR 24hr (Ditropan-XL) tablet 10 mg 10 mg, Oral, DAILY, First dose on Thu04/21/22 at 0900, Until Discontinued, Do not crush, chew, or cut in half. 0751 ($ Given - Provider: Kelly Ferrera RN) 0923 ($ Given - Provider: Liza Xie, MULU) 0852 ($ Given - Provider: Meme Chu RN) Continuous Medication Order 04/21/2022 04/22/2022 04/23/2022 lactated ringers infusion at 75 mL/hr, Intravenous, CONTINUOUS, Starting on Thu04/21/22 at 0630, Until Thu04/23/22 at 1900 0627 ($ New Bag/Syringe - Provider: Antoinette Frazier RN) 0033 ($ New Bag/Syringe - Provider: Phyllis Carbone RN)1612 ($ New Bag/Syringe - Provider: Liza Xie RN) ropivacaine 0.2% On-Q C-bloc Csgvjj-R-Pdzx single catheter infusion 2 mg/ml 600 ml 1,200 mg, at 2-10 mL/hr, Injection, CONTINUOUS, Starting on Thu04/21/22 at 1600, Until Thu04/23/22 at 1900, Single catheter On-Q C-bloc infusion pump 1. May increase rate by 2 mL for very severe pain every 15 minutes. 2. Evaluate pain after 1 hour and may repeat if needed up to a total of 10 mL/hr. 3. Decrease rate by 2 mL/hr if patient complains of numbness/tingling of extremity. 4. Reduce rate to 2 mL/hr (or lower depending on patient's level of numbness) one hour before Physical/Occupational Therapy appointment to ensure that patient has quad strength. 5. Evaluate patient's lower extremity strength prior to getting them out of bed. If decreased lower extremity strength, stop infusion and keep patient on bedrest for one hour. 6. Repeat every hour as needed, Pre-op / Post-op 1938 ($ New Bag/Syringe - Provider: Va Mei RN) PRN Medication Order 04/21/2022 04/22/2022 04/23/2022 dvtvutng-jtqlohwzo-jbgkwl icone (Maalox; Mylanta) suspension 20 mL 20 mL, Oral, EVERY 6 HOURS PRN, GI Upset, Starting on Thu04/21/22 at 0601, Until Thu04/23/22 at 1900, Shake well before using. fentaNYL (PF) (Sublimaze) injection 50 mcg (CANCELED) 50 mcg, Intravenous, EVERY 10 MIN PRN, Moderate Pain, 4 doses, Starting on Thu04/21/22 at 2000, Until Thu04/21/22 at 2041, Maximum total of 4 doses. If patient reaches max total dose, please consult anesthesiologist prior to further administration of pain meds. Hold pain meds if there are signs of hypoventilation. Patient preference for lesser PRN pain meds may be honored when the patient requests a less strong medication, a lower dose, or a less intrusive route of administration when the lesser drug, dose and route have been ordered for the patient. This patient request must be documented in the MAR., PACU 1954 ($ Given - Provider: Va Mei RN) HYDROmorphone (Dilaudid) injection 0.4 mg 0.4 mg, Intravenous, EVERY 3 HOURS PRN, breakthrough, Starting on Thu04/21/22 at 0601, Until Thu04/23/22 at 1900, If oral route is unavailable. Patient preference for lesser PRN pain meds may be honored when the patient requests a less strong medication, a lower dose, or a less intrusive route of administration when the lesser drug, dose and route have been ordered for the patient. This patient request must be documented in the MAR. HYDROmorphone (Dilaudid) injection 0.5 mg 0.5 mg, Intravenous, EVERY 4 HOURS PRN, Moderate Pain, Severe Pain, Starting on Thu04/21/22 at 0447, Until Thu04/23/22 at 1900, Patient preference for lesser PRN pain meds may be honored when the patient requests a less strong medication, a lower dose, or a less intrusive route of administration when the lesser drug, dose and route have been ordered for the patient. This patient request must be documented in the MAR. 0554 ($ Given - Provider: Antoinette Frazier RN) ketamine (Ketalar) injection (COMPLETED) Intravenous, CODE PRN, Starting on Thu04/21/22 at 0157, Until Thu04/21/22 at 0217 0157 ($ Given - Provider: Deonte Jackson MD)0217 ($ Given - Provider: Deonte Jackson MD) melatonin tablet 3 mg 3 mg, Oral, AT BEDTIME PRN, Insomnia, Starting on Thu04/21/22 at 0601, Until Thu04/23/22 at 1900 methocarbamol (Robaxin) tablet 750 mg 750 mg, Oral, EVERY 6 HOURS PRN, Muscle Spasms, Starting on Thu04/21/22 at 0602, Until Thu04/23/22 at 1900 0336 ($ Given - Provider: Phyllis Carbone RN)0923 ($ Given - Provider: Liza Xie RN)1820 ($ Given - Provider: Liza Xie RN) 0621 ($ Given - Provider: Phyllis Carbone RN) ondansetron (disintegrating) (Zofran ODT) tablet 4 mg(Linked Group 1) 4 mg, Oral, EVERY 6 HOURS PRN, Nausea/Vomiting, Starting on Thu04/21/22 at 0601, Until Thu04/23/22 at 1900, Dissolved orally on tongue Dissolved orally on tongue ondansetron (Zofran) injection 4 mg(Linked Group 1) 4 mg, Intravenous, EVERY 6 HOURS PRN, Nausea/Vomiting, Starting on Thu04/21/22 at 0601, Until Thu04/23/22 at 1900, Administer IV if patient is NPO, actively vomiting, or unable to swallow. oxyCODONE (immediate release) (Roxicodone) tablet 10 mg 10 mg, Oral, EVERY 4 HOURS PRN, Severe Pain, Starting on Thu04/21/22 at 0601, Until Thu04/23/22 at 1900, Patient preference for lesser PRN pain meds may be honored when the patient requests a less strong medication, a lower dose, or a less intrusive route of administration when the lesser drug, dose and route have been ordered for the patient. This patient request must be documented in the MAR., Allow a repeat dose for severe pain? No 0336 ($ Given - Provider: Phyllis Carbone RN)1354 ($ Given - Provider: Liza Xie RN)1820 ($ Given - Provider: Liza Xie RN) oxyCODONE (immediate release) (Roxicodone) tablet 5 mg 5 mg, Oral, EVERY 4 HOURS PRN, Moderate Pain, Starting on Thu04/21/22 at 0600, Until Thu04/23/22 at 1900, Patient preference for lesser PRN pain meds may be honored when the patient requests a less strong medication, a lower dose, or a less intrusive route of administration when the lesser drug, dose and route have been ordered for the patient. This patient request must be documented in the MAR. 922 ($ Given - Provider: Liza Xie RN) polyethylene glycol 3350 (Miralax) packet 17 g 17 g, Oral, DAILY PRN, Constipation, Starting on Thu04/21/22 at 0601, Until Thu04/23/22 at 1900, Mix in 8 ounces of water, juice, soda, coffee or tea prior to administration propofol (Diprivan) injection (COMPLETED) Intravenous, CODE CONTINUOUS PRN, Starting on Thu04/21/22 at 0157, Until Thu04/21/22 at 0213 0157 ($ New Bag/Syringe - Provider: Deonte Jackson MD)0205 ($ New Bag/Syringe - Provider: Deonte Jackson MD)0213 ($ New Bag/Syringe - Provider: Deonte Jackson MD) Linked Groups Order Group 1: ondansetron (disintegrating) (Zofran ODT) tablet 4 mgJump to med 4 mg, Oral, EVERY 6 HOURS PRN, Nausea/Vomiting, Starting on Thu04/21/22 at 0601, Until Thu04/23/22 at 1900, Dissolved orally on tongue Dissolved orally on tongue Or ondansetron (Zofran) injection 4 mgJump to med 4 mg, Intravenous, EVERY 6 HOURS PRN, Nausea/Vomiting, Starting on Thu04/21/22 at 0601, Until Thu04/23/22 at 1900, Administer IV if patient is NPO, actively vomiting, or unable to swallow. 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
--- OUTSIDE RECORDS SUMMARY | 2024-03-24 23:45 | XMS_ITS | Encounter Summary ---
Author Organization [facility] Address [address] [place] [address] Care Team Providers Care Nursing Executive Name Role Phone Dimitri Parry MD Primary Care Provider [phone] Reason for Visit * Reason Comments Injury Elbow BIBEMS from OSH with complaint of elbow injury. Per EMS pt had a fall at 1830 and landed on right arm and has a deformity to right elbow . Upon arrival VSS, GCS 15, PMS intact to right arm. * Auth/Cert (Routine) Specialty Diagnoses / Procedures Referred By Carlos Manuel west Referred To Contact Referral ID Status Reason Start Date Expiration Date Visits Re quested Visits Authorized [id number] 1 1 Encounter Details Date Type Department Care Team (Late st Contact Info) Description 04/21/2022 11:05 AM BAND REAMER MACHINE OPERATOR - 04/21/2022 2:20 PM [facility] Surgery [facility] [address] [place] [id number] Shai Levi MD [address] [facility] [place] [address] OPEN REDUCTION INTERNAL FIXATION (ORIF) RIGHT HUMERUS Surgery Details Date/Time Status Location OR Service Patient Class Case Class Case Type Trauma Case? 04/21/2022 11:05 AM Posted [facility] OR OR 03 Orthopedics Inpatient Work Ins >24 Hrs to 5 Days Panel 1 Procedure LRB Anes Op Region Wound Class Comments OPEN REDUCTION INTERNAL FIXA TION (ORIF) RIGHT HUMERUS Right General Arm Clean OSTEOTOMY HUMERUS Right General Arm Clean Surgeon Surgeon Role Service Panel Shai Levi MD Primary Orthopedics 1 Shai Brady IV, MD Resident - Assisting Orthopedics 1 Chris Banks MD Resident - Assisting Orthopedi cs 1 Special Needs FLAT MASOOD, BRENNER BAG, LATERAL ARM CHU, C-ARM. documented in this encounter Social History Tobacco Use Types Packs/Day [...] Sign Reading Time Taken Comments Blood Pressure 160/86 04/21/2022 2:09 PM BAND REAMER MACHINE OPERATOR Pulse 66 04/21/2022 1:46 PM BAND REAMER MACHINE OPERATOR Temperature 37.2 ??C (99 ??F) 04/21/2022 1:43 PM BAND REAMER MACHINE OPERATOR Respiratory Rate 15 04/21/2022 1:46 PM BAND REAMER MACHINE OPERATOR Oxygen Saturation 92% 04/21/2022 1:46 PM BAND REAMER MACHINE OPERATOR Inhaled Oxygen Concentration - - Weight 77.1 kg (170 lb) 04/21/2022 12:38 AM BAND REAMER MACHINE OPERATOR Height 165.1 cm (5' 5 ) 04/21/2022 12:38 AM BAND REAMER MACHINE OPERATOR Body Mass Index 28.29 04/21/2022 12:38 AM BAND REAMER MACHINE OPERATOR documented in this encounter Discharge Summaries * Chris Banks MD - 04/23/2022 12:51 PM CST Orthopedic Surgery Discharge Summary 04/23/2022 Patient: America Cloud / 66 year old / female : 1955 CSN: [id number] Attending Physician: Shai Pang MD Consults: none [...] DATE/TIME OF EXAM: 04/21/2022 9:07 PM, LOCATION [facility] INDICATION: W19.XXXA: Fall, initial encounter ADDITIONAL [...] fracture fragments. Postsurgical changes including numerous skin cecy and placement of a surgical drain are seen. Report dictated by Víctor Jaramillo MD, MD (vice president integrated). I, Benjamin Barillas MD have personally reviewed and interpreted this examination/study. > Interpreting Provider: Benjamin Barillas MD on 04/22/2022 2:17 PM FL AMBER SURGERY Final Result Fluoroscopy was used for this exam in the OR. Please see the Operative report. CT ELBOW RIGHT WO CONTRAST Final Result PROCEDURE: CT ELBOW RIGHT WO CONTRAST, DATE/TIME OF EXAM: 04/21/2022 6:36 AM, LOCATION [facility] INDICATION: S42.491A: Other closed displaced fracture [...] fracture. > Dictated by Luis Silva MD (vice president integrated) Benjamin Oro MD have personally reviewed and interpreted this examination/study. > Interpreting Provider: Benjamin Barillas MD on 04/21/2022 8:33 AM XR CHEST 1VW PORTABLE Final Result PROCEDURE: XR CHEST 1VW PORTABLE, DATE/TIME OF EXAM: 04/21/2022 6:26 AM, LOCATION [facility] INDICATION: W19.XXXA: Fall, initial encounter ADDITIONAL [...] head. Report dictated by Simin Mayes MD (vice president integrated). Funmilayo Oro MD have personally reviewed and interpreted this examination/study. > Interpreting Provider: Funmilayo Diaz MD on 04/21/2022 8:49 AM XR ELBOW RIGHT 2VW Final Result PROCEDURE: XR ELBOW RIGHT 2VW, DATE/TIME OF EXAM: 04/21/2022 2:30 AM, LOCATION [facility] INDICATION: W19.XXXA: Fall, initial encounter ADDITIONAL [...] x-ray. Report dictated by Simin Mayes MD (vice president integrated). Funmilayo Oro MD have personally reviewed and interpreted this examination/study. > Interpreting Provider: Funmilayo Diaz MD on 04/21/2022 8:45 AM XR STRESS ANY JOINT Final Result PROCEDURE: XR HUMERUS RIGHT 2VW OR MORE, XR ELBOW RIGHT 2VW, XR STRESS ANY JOINT, DATE/TIME OF EXAM: 04/21/2022 1:36 AM, LOCATION [facility] INDICATION: W19.XXXA: Fall, initial encounter ADDITIONAL CLINICAL INFORMATION: Ordering Provider Reason For Exam: Trauma (accession [id number]), Trauma (accession [id number]), trauma (accession [id number]) COMPARISON: None. FINDINGS: Right humerus: There is [...] fracture. Report dictated by Simin Mayes MD (vice president integrated). Funmilayo Oro MD have personally reviewed and interpreted this examination/study. > Interpreting Provider: Funmilayo Diaz MD on 04/21/2022 8:44 AM XR ELBOW RIGHT 2VW Final Result PROCEDURE: XR HUMERUS RIGHT 2VW OR MORE, XR ELBOW RIGHT 2VW, XR STRESS ANY JOINT, DATE/TIME OF EXAM: 04/21/2022 1:36 AM, LOCATION [facility] INDICATION: W19.XXXA: Fall, initial encounter ADDITIONAL CLINICAL INFORMATION: Ordering Provider Reason For Exam: Trauma (accession [id number]), Trauma (accession [id number]), trauma (accession [id number]) COMPARISON: None. FINDINGS: Right humerus: There is [...] fracture. Report dictated by Simin Mayes MD (vice president integrated). I, Funmilayo Diaz MD have personally reviewed and interpreted this examination/study. > Interpreting Provider: Funmilayo Diaz MD on 04/21/2022 8:44 AM XR HUMERUS RIGHT 2VW OR MORE Final Result PROCEDURE: XR HUMERUS RIGHT 2VW OR MORE, XR ELBOW RIGHT 2VW, XR STRESS ANY JOINT, DATE/TIME OF EXAM: 04/21/2022 1:36 AM, LOCATION [facility] INDICATION: W19.XXXA: Fall, initial encounter ADDITIONAL CLINICAL INFORMATION: Ordering Provider Reason For Exam: Trauma (accession [id number]), Trauma (accession [id number]), trauma (accession [id number]) COMPARISON: None. FINDINGS: Right humerus: There is [...] fracture. Report dictated by Simin Mayes MD (vice president integrated). I, Funmilayo Diaz MD have personally reviewed [...] fluticasone propionate (Flonase) 50 MCG/ACT nasal spray Hollister 1 (one) spray into the nose once [...] MD . Specialty: Orthopedic Surgery Contact information: [address] [facility] [address] Patient Instructions Summary: - Weight Bearing: NWB RUE - Activity: Activity as tolerated - Diet: regular diet - Wound Care: Keep wound clean and dry. Change dressing in 3 days or sooner if saturated. Replace with dry dressings as needed. No showers until we see you in clinic - Anticoagulation: ASA 325 daily - Sutures/Cecy: dissolvable - Pain Medication: Tylenol, oxycodone Narcotic Medication Patient Information You are being discharged/sent home with a prescription(s) for narcotic pain medicine (examples: Oxycodone, Hydrocodone, Roxicodone, Percocet, Rising Sun). Our goal is to control your pain, [...] Tylenol. - Many pain medicines (such as Rising Sun or Percocet) also contain Tylenol/Acetaminophen (this is [...] Appointment with Shai Levi at [facility] 1L ([phone]) [address] [place] [phone] Chris Banks MD 04/23/2022 12:51 PM 04/23/2022 12:51 PM [facility] Orthopedic Surgery office contact information: [facility] at [address], [place] [address] [place] [address], [address] [place] [address] REAMER MACHINE OPERATOR documented in this encounter Discharge Instructions * Discharge Instructions* Meme Chu RN - 04/23/2022 2:10 PM BAND REAMER MACHINE OPERATOR CARING FOR YOUR CAST Your cast is [...] itching and a smelly cast). A chair and couch maker with a cool setting can often be [...] OR LEG IN THE FASTEST, SAFEST WAY!! REAMER MACHINE OPERATOR documented in this encounter Medications at Time [...] fluticasone propionate (Flonase) 50 MCG/ACT nasal spray Hollister 1 (one) spray into the nose once [...] tomorrow. Mark Perkins DO 04/26/2022 12:19 PM REAMER MACHINE OPERATOR * Mark Perkins DO - 04/23/2022 5:59 [...] noted by the patient. Patient or patient geodetic computator spoken to on phone: Yes Symptoms of local anesthetic toxicity? no Symptoms of catheter migration? no Symptoms of catheter Infection? no Pain score: 5 Dressing intact: Yes Catheter removed intact: not removed All questions answered:Yes Mark Perkins DO 04/24/22 Please page [phone] (PAIN) with any questions or concerns. REAMER MACHINE OPERATOR * Mark Perkins DO - 04/23/2022 5:59 [...] noted by the patient. Patient or patient geodetic computator spoken to on phone: Yes Symptoms of local anesthetic toxicity? no Symptoms of catheter migration? no Symptoms of catheter Infection? no Pain score: 2 Dressing intact: Yes Catheter removed intact:not removed All questions answered:Yes Mark Perkins DO 04/25/22 Please page [phone] (PAIN) with any questions or concerns. REAMER MACHINE OPERATOR * Mark Perkins DO - 04/23/2022 5:59 [...] questions. Mark Perkins DO 04/27/22 8:59 AM REAMER MACHINE OPERATOR * Mark Perkins DO - 04/23/2022 5:59 [...] noted by the patient. Patient or patient geodetic computator spoken to on phone: Yes Symptoms of local anesthetic toxicity? no Symptoms of catheter migration? no Symptoms of catheter Infection? no Pain score: 5 Dressing intact: Yes Catheter removed intact: Yes All questions answered:Yes Mark Perkins DO 04/28/22 Please page [phone] (PAIN) with any questions or concerns. Ysabel [...] outpatient pharmacy at [phone]. Ysabel Manuel CPhT [facility] at [address], First Floor [place], [place] [address] Hours of Operation Thursday - Thursday: 8:00am to 6:00pm Thursday: 9:00am to 1:00pm Epic: [facility] *Ensure the patient and clinic's nearby ZIP codes box is unchecked* Meme Squires RN - 04/23/2022 1:31 PM CST Problem: [...] the flowsheet documentation) Outcome: Adequate for Discharge REAMER MACHINE OPERATOR * Mark Perkins DO - 04/23/2022 11:50 [...] 04/23/[address] Juan Perkins DO 04/23/2022 REAMER MACHINE OPERATOR Associated attestation - Ashish Martinez MD - 04/23/2022 1:13 PM BAND REAMER MACHINE OPERATOR I was present for exam and discussion of patient with the resident and medical student. I agree with progress note and plan for the patient's Post Operative Pain Management. Pain well controlled with catheter in place. Will continue to follow until catheter removal. * Josh Ko Jr., PharmD - 04/23/2022 11:24 AM CST [facility] Pharmacy Medication History Note The current home/prior to admission (INFORMATICS PHYSICIAN) medication list has been reviewed by a [...] fluticasone propionate (Flonase) 50 MCG/ACT nasal spray Hollister 1 (one) spray into the nose once [...] please do not hesitate to contact the [facility] pharmacy dept ([phone]). Thank you. Assessment Completed by: Josh Ko Jr., PharmD 04/23/2022 11:24 AM REAMER MACHINE OPERATOR * Chris Banks MD - 04/23/2022 10:15 AM CST [facility] Orthopedic Surgery Progress Note Admit Date: 04/21/2022 [...] function. Chris Banks MD 04/23/2022 10:15 AM REAMER MACHINE OPERATOR * Liza Xie RN - 04/22/2022 5:35 PM CST Problem: Skin Integrity Goal: Skin integrity is maintained or improved 04/22/2022 173 by Liza Xie RN Outcome: Progressing 04/22/2022 173 by Liza Xie RN Outcome: Progressing Problem: Pain/Discomfort Goal: Patient exhibits reduced pain/discomfort as evidenced by pain scores 04/22/2022 173 by Anne-Marie, Liza L, RN Outcome: Progressing 04/22/2022 1735 by Liza Xei RN Outcome: Progressing Goal: Patient uses pharmacological [...] found in the flowsheet documentation) Outcome: Progressing REAMER MACHINE OPERATOR * Bernie aGrcia - 04/22/2022 12:35 PM CST Sales Mgr had initial visit with this patient. 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 She did not express any specific pastoral care needs, but I assured her of the ongoing presence of infection control coordinator support as needed. Pastoral Care Ascom: [phone] Bernie Garcai 04/22/2022 12:37 PM REAMER MACHINE OPERATOR * Maria Antonia Georges RN - 04/22/2022 [...] patient's preference is to stay within the [facility] Network and its affiliates.: Yes Comments: 66 yoF presented 04/21 form [facility] due to a fall on right arm [...] Subscriber Name Rel Member # Group # ANTHEM - STEFAN JARAMILLO O* AMERICA CLOUD Self [id number] [address] Readmission: No READMISSION RISK SCORE is N/A at 11:11 AM 04/22/2022. Met with patient Family Support (name and phone): Extended Emergency Contact Information Primary Emergency Contact: NICOLA RIVER Mobile Relation: Daughter Secondary Emergency Contact: TEGAN DEL REAL Mobile Relation: Daughter Patient or sales representative rural power requests care coordination reach out to family or caregiver listed above regarding discharge planning and at time of discharge? No Patient/Family provided with list of resources? No Preferred Provider / High Quality Network List given?: No Reason for provider choice: Pt. choice - Pt. choice Certified Art Therapist Referral: No Will continue to follow. For any questions or needs please contact: Commissions Specialist Name/Phone number: Maria Antonia Georges RN REAMER MACHINE OPERATOR * Shai Brady IV, MD - 04/22/2022 4:58 AM CST [facility] Orthopedic Surgery Progress Note Admit Date: 04/21/2022 [...] Shai Brady IV, MD 04/22/2022 4:59 AM REAMER MACHINE OPERATOR * Phyllis Carbone RN - 04/21/2022 11:46 [...] found in the flowsheet documentation) Outcome: Progressing REAMER MACHINE OPERATOR * Shai Brady IV, MD - 04/21/2022 7:31 PM CST Orthopedic Surgery Postoperative Check America Cloud, 66 year old, female : 1955 CSN: [id number] Admitted: 04/21/2022 12:31 AM Subjective Nausea/vomiting: none [...] Shai Brady IV, MD 04/21/2022 7:31 PM REAMER MACHINE OPERATOR * Chris Banks MD - 04/21/2022 4:43 AM CST [facility] Orthopedic Surgery Progress Note Admit Date: 04/21/2022 [...] please page with questions. DO NOT USE Epic Secure Chat. Chris Banks MD 04/21/2022 6:06 AM REAMER MACHINE OPERATOR Associated attestation - Shai Levi MD - 04/21/2022 1:50 PM BAND REAMER MACHINE OPERATOR I have reviewed the history and pertinent [...] Pang MD - 04/22/2022 5:17 AM CST [facility] Orthopedic Trauma Surgery Consultation Note America Cloud, 66 year old, female : 1955 CSN: [id number] Primary Care Physician: Dimitri Parry MD Chief [...] 66 year old female who presented to [facility] Emergency Department on 04/21/2022 with complaint of [...] ??? acetaminophen (Tylenol) tablet 650 mg ??? mpebjghr-eqqqcpvnx-lfzzndvuryx (Maalox; Mylanta) suspension 20 mL ??? docusate [...] 17 g ??? ropivacaine 0.2% On-Q C-bloc Fuinsr-D-Lmwe single catheter infusion 2 mg/ml 600 ml [...] answered. Follow up Contact Information: Orthopaedic Surgery [facility], Level I-Orthopaedic Surgery [address] [place] [address] Wilfredo Lobato MD Plant Scientist Department of Orthopedic surgery [facility] REAMER MACHINE OPERATOR documented in this encounter Procedure Notes * [...] and Lateral plain films demonstrated acceptable alignment. REAMER MACHINE OPERATOR documented in this encounter Consult Notes * Wilfredo Lobato MD - 04/21/2022 2:39 AM CST [facility] Orthopedic Trauma Surgery Consultation Note America Cloud, 66 year old, female : 1955 CSN: [id number] Primary Care Physician: No primary care provider [...] 66 year old female who presented to [facility] Emergency Department on 04/21/2022 with complaint of [...] HGB, HCT, MCV, PLTCOUNT in the last 24655 hours. No results for input(s): NA, POTASSIUM, CL, CO2, BUN, CREATININE, GLUCOSE in the last 96054 hours. No results for input(s): INR, PT in the last 12898 hours. Imaging - XRs of the left [...] answered. Follow up Contact Information: Orthopaedic Surgery [facility] Medicine, Level I-Orthopaedic Surgery [address] [place], [place] [id number] Wilfredo Lobato MD Plant Scientist Department of Orthopedic surgery [facility] REAMER MACHINE OPERATOR documented in this encounter OR Notes * [...] Chris Banks MD - Resident - Assisting Color Tester(s): none Anesthesia Type: general ETT Complications: none Findings: Fracture reduced and plates placed. Olecranon osteotomy for visualization EBL: blood loss of 150 ml Urine Output : 150 mL IV Fluid Intake: see anaesthesia note Drains: Drain 1 Round Accordian Anterior;Right Shoulder (Active) Specimen(s): * No specimens in log * Implant(s): Implant Name Type Inv. Item Serial No. Tailman Lot No. LRB No. Used Action Pin Fx 50Mm 1.5Mm Spn Plla Rsrb Slf Pin Fx 50Mm 1.5Mm Spn Plla Rsrb Slf [employer] [id number] Right 2 Implanted Screw 2.7Mm 4.5Mm 38Mm [...] Eprsth Prost 3Cm 14Mm Urlm 24 Wire [employer] Right 1 Implanted Screw 3.5Mm 20Mm [...] Right 1 Implanted Shai Brady IV, MD REAMER MACHINE OPERATOR * Operative - Shai Levi MD - [...] trochlear fractures ATTENDING SURGEON: Shai Levi MD HOSPITAL WARD CLERK: Anjum Brady MD and Dr. Kalpesh Banks. [...] at an outside institution and transferred to [facility] for orthopedic and specialty care. She was [...] of the trochlea back on to the [place] medial column. This entire medial column was [...] plate was then selected using the 3-hole [facility] medial column plate. This was then [...] capitellar screw trajectories were prebent using the [facility] plate Burk. The first screw was placed [...] 2-0 Monocryl closed subcutaneous tissue and skin cecy closed the skin in interrupted fashion. A [...] LOSS: 150 mL. Shai Levi MD JTW/kir .[id number] Doc ID: [id number] Voice Job ID: [id number] REAMER MACHINE OPERATOR documented in this encounter ED Notes * Kelly Ferrera RN - 04/21/2022 7:57 AM CST Pt changed into just a gown with all other clothes removed. Pt nad and stated she was going to try and take a nap before surgery. REAMER MACHINE OPERATOR * Maggie Hinton MD - 04/21/2022 7:48 [...] DATE/TIME OF EXAM: 04/21/2022 6:36 AM, LOCATION [facility] INDICATION: S42.491A: Other closed displaced fracture [...] fracture. > Dictated by Luis Silva MD (vice president integrated) I, Benjamin Barillas MD have personally reviewed [...] ED Course Resting comfortably, pending bed assignment REAMER MACHINE OPERATOR * Antoinette Frazier RN - 04/21/2022 2:08 AM CST Pt placed on 5L NC during procedure REAMER MACHINE OPERATOR * Deonte Jackson MD - 04/21/2022 1:24 AM CST CC fall, right elbow fracture HISTORY History obtained from: Patient 66 year old year old female with hx as below including hypertension, transferred from [place] for right humerus fracture after ground level fall earlier this evening. Patient states that she was leaving her qbrmom-nk-xcv's house when she slipped on the driveway falling on her right arm. She immediately had excruciating pain in the right arm. Denies hitting her head or loss of consciousness. She also struck her right knee on the ground. Denies pain anywhere else on her body. She is not on anticoagulation. She was seen at [place] where they diagnosed her with a severely comminuted and moderately displaced fracture of the distal humerus. She was then transferred to [facility] for orthopedic surgery services. No past medical [...] (0.5 mg Intravenous $ Given 04/21/22 0109) Procedures ED COURSE Patient seen and evaluated, [...] encounter 3. Essential hypertension Deonte Jackson MD REAMER MACHINE OPERATOR * Felton Donauhe MD - 04/21/2022 12:55 AM CSTAssociated Order(s): [...] mg (0.5 mg Intravenous $ Given 04/21/22 2113) lactated ringers infusion ( Intravenous $ New Bag/Syringe 04/21/22 9957) enoxaparin (Lovenox) injection 40 mg (has no administration in time range) acetaminophen (Tylenol) tablet 650 mg (650 mg Oral $ Given 04/21/22 9289) oxyCODONE (immediate release) (Roxicodone) tablet 5 mg (has no administration in time range) oxyCODONE (immediate release) (Roxicodone) tablet 10 mg (has no administration in time range) HYDROmorphone (Dilaudid) injection 0.4 mg (has no administration in time range) ondansetron (disintegrating) (Zofran ODT) tablet 4 mg (has no administration in time range) Or ondansetron (Zofran) injection 4 mg (has no administration in time range) iretpmlo-jagvdjmtr-ohlohxhxmfj (Maalox; Mylanta) suspension 20 mL (has no [...] Alternatives discussed: Analgesia without sedation and anxiolysis Goldsmith protocol: Procedure explained and questions answered to [...] and propofol) Intra-procedure monitoring: Blood pressure monitoring, tender labor, continuous capnometry, continuous pulse oximetry, frequent LOC [...] Dr. Donahue Date: 04/21/22 Time: 12:55 AM REAMER MACHINE OPERATOR * Antoinette Frazier RN - 04/21/2022 12:38 AM CST BIBEMS from OSH with complaint of elbow injury. Per EMS pt had a fall at 1830 and landed on right arm and has a deformity to right elbow . Upon arrival VSS, GCS 15, PMS intact to right arm. REAMER MACHINE OPERATOR * Radha Caballero RN - 04/21/2022 12:31 AM CST Bed: [facility] Expected date: Expected time: Means of arrival: Comments: [facility] transfer complicated elbow fx REAMER MACHINE OPERATOR documented in this encounter Plan of Treatment Not on file documented as of this encounter Procedures Procedure Name Priority Date/Time Associated Diagnosis Comments XR ELBOW RIGHT 2VW Routine 04/23/2022 8: 53 AM BAND REAMER MACHINE OPERATOR Fall, initial encounter CBC W/O DIFFERENTIAL Routine 04/23/2022 3:29 AM BAND REAMER MACHINE OPERATOR Fall, initial encounter CBC W/O DIFFERENTIAL Routine 04/22/2022 1:11 AM BAND REAMER MACHINE OPERATOR Fall, initial encounter BASIC METABOLIC PANEL (CALCIUM TOTAL) Routine 04/22/2022 1:11 AM BAND REAMER MACHINE OPERATOR Fall, initial encounter BLOOD TYPE VERIFICATION STAT 04/21/2022 11:18 PM BAND REAMER MACHINE OPERATOR XR ELBOW RIGHT 3VW OR MORE Routine 04/21/2022 9:07 PM BAND REAMER MACHINE OPERATOR Fall, initial encounter FL AMBER SURGERY STAT 04/21/2022 7:18 PM BAND REAMER MACHINE OPERATOR Other closed displaced fracture of distal end of right humerus, initial encounter ND OSTEOTOMY HUMERUS 04/21/2022 3:31 PM BAND REAMER MACHINE OPERATOR Closed fracture of distal end of right humerus, unspecified fracture morphology, initial encounter Special Needs FLAT MASOOD, BRENNER BAG, LATERAL ARM CHU, C-ARM. OPEN REDUCTION INTERNAL FIXATION (ORIF) HUMERUS 04/21/2022 3:31 PM BAND REAMER MACHINE OPERATOR Closed fracture of distal end of right humerus, unspecified fracture morphology, initial encounter Special Needs FLAT MASOOD, BRENNER BAG, LATERAL ARM CHU, C-ARM. CT ELBOW RIGHT WO CONTRAST STAT 04/21/2022 6:36 AM BAND REAMER MACHINE OPERATOR Other closed displaced fracture of distal end of right humerus, initial encounter XR CHEST 1VW PORTABLE STAT 04/21/2022 6:26 AM BAND REAMER MACHINE OPERATOR Fall, initial encounter PTT [facility] STAT 04/21/2022 3:45 AM BAND REAMER MACHINE OPERATOR Fall, initial encounter PT-INR [facility] STAT 04/21/2022 3:45 AM BAND REAMER MACHINE OPERATOR Fall, initial encounter TYPE + SCREEN PANEL STAT 04/21/2022 3 :45 AM BAND REAMER MACHINE OPERATOR Fall, initial encounter CBC W/O DIFFERENTIAL STAT 04/21/2022 3:45 AM BAND REAMER MACHINE OPERATOR Fall, initial encounter BASIC METABOLIC PANEL (CALCIUM TOTAL) STAT 04/21/2022 3:45 AM BAND REAMER MACHINE OPERATOR Fall, initial encounter ED MODERATE SEDATION Routine 04/21/2022 2:33 AM BAND REAMER MACHINE OPERATOR Fall, initial encounter Other closed displaced fracture of distal end of right humerus, initial encounter Essential hypertension XR ELBOW RIGHT 2VW STAT 04/21/2022 2: 30 AM BAND REAMER MACHINE OPERATOR Fall, initial encounter XR STRESS ANY JOINT STAT 04/21/2022 2 :06 AM BAND REAMER MACHINE OPERATOR Fall, initial encounter XR ELBOW RIGHT 2VW STAT 04/21/2022 1: 35 AM BAND REAMER MACHINE OPERATOR Fall, initial encounter XR HUMERUS RIGHT 2VW OR MORE STAT 04/21/2022 1:35 AM BAND REAMER MACHINE OPERATOR Fall, initial encounter documented in this encounter Results * XR ELBOW RIGHT 2VW (04/23/2022 8:53 AM BAND REAMER MACHINE OPERATOR) Anatomical Region Laterality Modality Upper Extremity Radiographic Davida ging 04/24/2022 10:4 0 AM BAND REAMER MACHINE OPERATOR Narrative 04/24/2022 2:24 PM BAND REAMER MACHINE OPERATOR PROCEDURE: ??XR ELBOW RIGHT 2VW, DATE/TIME OF EXAM: ??04/23/2022 8:54 AM, LOCATION ??[facility] INDICATION: W19.XXXA: Fall, initial encounter COMPARISON: [...] appears intact. Alignment is unchanged. Posterior surgical cecy are again seen. Surgical drain has been removed. Report dictated by Víctor Jaramillo MD, MD (vice president integrated). Chema Oro MD have personally reviewed and interpreted this examination/study. > Interpreting Provider: Chema Grady MD on 04/24/2022 2:24 PM Procedure Note Sheree Grady MD - 04/24/2022 PROCEDURE: XR ELBOW RIGHT 2VW, DATE/TIME OF EXAM: 04/23/2022 8:54 AM, LOCATION [facility] INDICATION: W19.XXXA: Fall, initial encounter COMPARISON: [...] appears intact. Alignment is unchanged. Posterior surgical cecy are again seen.Surgical drain has been removed. Report dictated by Víctor Jaramillo MD, MD (vice president integrated). IChema MD have personally reviewed and interpreted this examination/study. > Interpreting Provider: Chema Grady MD on 04/24/2022 2:24 PM Shai Pang MD DIAGNOSTIC IMAGING O RDERABLES * (ABNORMAL) CBC W/O DIFFERENTIAL (04/23/2022 3:29 AM BAND REAMER MACHINE OPERATOR) WBC 9.5 3.5 - 10.5 10? 3 /uL 04/23/2022 3:[address] [facility] RBC 3.39(L) 3.80 - 5.20 10? 6 /uL 04/23/2022 3:53 AM [facility] Hemoglobin 9.8(L) 12.0 - 15.6 g/dL 04/23/2022 3:53 AM [facility] Hematocrit 30.7(L) 35.0 - 45.0 % 04/23/2022 3:53 AM [facility] MCV 90.6 80.7 - 98.3 fL 04/23/2022 3:53 AM [facility] MCH 28.9 26.7 - 34.0 pg 04/23/2022 3:53 AM [facility] MCHC 31.9 30.8 - 35.9 g/dL 04/23/2022 3:53 AM [facility] RDW-SD 46.1 36.0 - 50.0 fL 04/23/2022 3:53 AM [facility] RDW-CV 14.0 11.2 - 14.8 % 04/23/2022 3:53 AM [facility] Platelet Count 200 150 - 400 10? 3 /uL 04/23/2022 3:53 AM [facility] MPV 9.8 9.4 - 12.9 fL 04/23/2022 3:53 AM [facility] nRBC Absolute 0.00 0 10? 3 /uL 04/23/2022 3:53 AM [facility] nRBC Auto 0.0 0 /100 WBC 04/23/2022 3:53 AM [facility] Blood BLOOD SPECIMEN / Unknown Lab Venipuncture / Unknown 04/23/2022 3:29 AM BAND REAMER MACHINE OPERATOR 04/23/2022 3:39 AM [facility] Felton Donahue MD LAB - HEMATOLOGY ORD ERABLES [facility] [address] [place] [address], [facility] [phone] * (ABNORMAL) CBC W/O DIFFERENTIAL (04/22/2022 1:11 AM [facility]) WBC 12.4(H) 3.5 - 10.5 10? 3 /uL 04/22/2022 2:23 AM [facility] RBC 3.96 3.80 - 5.20 10? 6 /uL 04/22/2022 2:23 AM [facility] Hemoglobin 11.5(L) 12.0 - 15.6 g/dL 04/22/2022 2:23 AM [facility] Hematocrit 36.1 35.0 - 45.0 % 04/22/2022 2:23 AM [facility] MCV 91.2 80.7 - 98.3 fL 04/22/2022 2:23 AM [facility] MCH 29.0 26.7 - 34.0 pg 04/22/2022 2:23 AM [facility] MCHC 31.9 30.8 - 35.9 g/dL 04/22/2022 2:23 AM [facility] RDW-SD 46.8 36.0 - 50.0 fL 04/22/2022 2:23 AM [facility] RDW-CV 14.0 11.2 - 14.8 % 04/22/2022 2:23 AM [facility] Platelet Count 258 150 - 400 10? 3 /uL 04/22/2022 2:23 AM [facility] MPV 10.3 9.4 - 12.9 fL 04/22/2022 2:23 AM [facility] nRBC Absolute 0.00 0 10? 3 /uL 04/22/2022 2:23 AM [facility] nRBC Auto 0.0 0 /100 WBC 04/22/2022 2:23 AM [facility] Blood BLOOD SPECIMEN / Unknown Lab Venipuncture / Unknown 04/22/2022 1:11 AM BAND REAMER MACHINE OPERATOR 04/22/2022 2:18 AM [facility] Felton Donahue MD LAB - HEMATOLOGY ORD ERABLES Performing Organization Address [facility] Co de Phone Number [facility] [address] [place] [phone], [facility] [phone] * (ABNORMAL) BASIC METABOLIC PANEL (CALCIUM TOTAL) (04/22/2022 1:11 AM [facility]) BUN 14 7 - 26 mg/dL 04/22/2022 2:43 AM [facility] Creatinine 0.67 0.56 - 0.96 mg/dL 04/22/2022 2:43 AM [facility] Sodium 137 136 - 145 mmol/L 04/22/2022 2:43 AM [facility] Potassium 4.3 3.5 - 4.5 mmol/L 04/22/2022 2:43 AM [facility] Chloride 101 98 - 107 mmol/L 04/22/2022 2:43 AM [facility] CO2 24 22 - 29 mmol/L 04/22/2022 2:43 AM [facility] Glucose 196(H) 70 - 115 mg/dL 04/22/2022 2:43 AM [facility] Calcium 8.7 8.4 - 10.2 mg/dL 04/22/2022 2:43 AM [facility] Anion Gap 16 8 - 18 04/22/2022 2:43 AM [facility] BUN/Creatinine Ratio 21 7 - 23 04/22/2022 2:43 AM [facility] Osmolality Calculated 290 270 - 300 mOsm/kg 04/22/2022 2:43 AM [facility] eGFR by CKD-EPI >90 >=90 mL/min/1.7 3 m2 04/22/2022 2:43 AM [facility] Blood BLOOD SPECIMEN / Unknown Lab Venipuncture / Unknown 04/22/2022 1:11 AM BAND REAMER MACHINE OPERATOR 04/22/2022 2:20 AM BAND REAMER MACHINE OPERATOR Felton Donahue MD LAB - CHEMISTRY ORDE GERRY [address] [address], [facility] [phone] * BLOOD TYPE VERIFICATION (04/21/2022 11:18 PM BAND REAMER MACHINE OPERATOR) ABO Rh A NEG 04/21/2022 11:52 PM BAND REAMER MACHINE OPERATOR [facility] BLOOD BANK LAB Blood Bank BLOOD SPECIMEN / Unknown Lab Venipuncture / Unknown 04/21/2022 11:18 PM BAND REAMER MACHINE OPERATOR 04/21/2022 11:30 PM BAND REAMER MACHINE OPERATOR Denisse Veras MD LAB - BLOOD BANK ORD ERABLES [facility] BLOOD BANK LAB [address] [place] [id number], [facility] [phone] * XR ELBOW RIGHT 3VW OR MORE (04/21/2022 9:07 PM BAND REAMER MACHINE OPERATOR) Anatomical Region Laterality Modality Upper Extremity Radiographic Davida ging 04/22/2022 1:19 PM BAND REAMER MACHINE OPERATOR Narrative 04/22/2022 2:17 PM BAND REAMER MACHINE OPERATOR PROCEDURE: ??XR ELBOW RIGHT 3VW OR MORE, DATE/TIME OF EXAM: ??04/21/2022 9:07 PM, LOCATION ??[facility] INDICATION: W19.XXXA: Fall, initial encounter ADDITIONAL [...] fracture fragments. Postsurgical changes including numerous skin cecy and placement of a surgical drain are seen. Report dictated by Víctor Jaramillo MD, MD (vice president integrated). Benjamin Oro MD have personally reviewed and interpreted this examination/study. > Interpreting Provider: Benjamin Barillas MD on 04/22/2022 2:17 PM Procedure Note Benjamin Barillas MD - 04/22/2022 PROCEDURE: XR ELBOW RIGHT 3VW OR MORE, DATE/TIME OF EXAM: 39:07 PM, LOCATION [facility] INDICATION: W19.XXXA: Fall, initial encounter ADDITIONAL [...] fracture fragments. Postsurgical changes including numerous skin cecy and placement of a surgical drain are seen. Report dictated by Víctor Jaramillo MD, MD (vice president integrated). Benjamin Oro MD have personally reviewed and interpreted this examination/study. > Interpreting Provider: Benjamin Barillas MD on 04/22/2022 2:17 PM Shai Levi MD DIAGNOSTIC IMAGING O RDERABLES * FL AMBER SURGERY (04/21/2022 7:18 PM BAND REAMER MACHINE OPERATOR) Narrative [facility] RADIOLOGY - 04/21/2022 7:20 PM BAND REAMER MACHINE OPERATOR Fluoroscopy was used for this exam in the OR. Please see the Operative report. Shai Levi MD FLUOROSCOPY ORDERABL ES [facility] RADIOLOGY * CT ELBOW RIGHT WO CONTRAST (04/21/2022 6:36 AM BAND REAMER MACHINE OPERATOR) Anatomical Region Laterality Modality Upper Extremity Computed Tomogra phy 04/21/2022 6:45 AM BAND REAMER MACHINE OPERATOR Impressions 04/21/2022 8:33 AM BAND REAMER MACHINE OPERATOR IMPRESSION: 1.Comminuted moderately displaced intra-articular fracture of the distal humerus. 2.Suspected small chip fracture at the olecranon process. 3.Mild elbow subluxation. 4.Right rib fracture. > Dictated by Luis Silva MD (vice president integrated) I, Benjamin Barillas MD have personally reviewed and interpreted this examination/study. > Interpreting Provider: Benjamin Barillas MD on 04/21/2022 8:33 AM Narrative 04/21/2022 8:33 AM BAND REAMER MACHINE OPERATOR PROCEDURE: ??CT ELBOW RIGHT WO CONTRAST, DATE/TIME OF EXAM: ??04/21/2022 6:36 AM, LOCATION ??[facility] INDICATION: S42.491A: Other closed displaced fracture [...] CONTRAST, DATE/TIME OF EXAM: 36:36 AM, LOCATION [facility] INDICATION: S42.491A: Other closed displaced fracture [...] fracture. > Dictated by Luis Silva MD (vice president integrated) I, Benjamin Barillas MD have personally reviewed and interpreted this examination/study. > Interpreting Provider: Benjamin Barillas MD on 04/21/2022 8:33 AM Felton Donahue MD CT ORDERABLES * XR CHEST 1VW PORTABLE (04/21/2022 6:26 AM BAND REAMER MACHINE OPERATOR) Anatomical Region Laterality Modality Chest Radiographic Davida ging 04/21/2022 6:27 AM BAND REAMER MACHINE OPERATOR Narrative 04/21/2022 8:49 AM BAND REAMER MACHINE OPERATOR PROCEDURE: ??XR CHEST 1VW PORTABLE, DATE/TIME OF EXAM: ??04/21/2022 6:26 AM, LOCATION ??[facility] INDICATION: W19.XXXA: Fall, initial encounter ADDITIONAL [...] head. Report dictated by Simin Mayes MD (vice president integrated). Funmilayo Oro MD have personally reviewed and interpreted this examination/study. > Interpreting Provider: Funmilayo Diaz MD on 04/21/2022 8:49 AM Procedure Note Funmilayo Diaz MD - 04/21/2022 PROCEDURE: XR CHEST 1VW PORTABLE, DATE/TIME OF EXAM: 04/21/2022 6:26AM, LOCATION [facility] INDICATION: W19.XXXA: Fall, initial encounter ADDITIONAL [...] head. Report dictated by Simin Mayes MD (vice president integrated). Funmilayo Oro MD have personally reviewed and interpreted this examination/study. > Interpreting Provider: Funmilayo Diaz MD on 04/21/2022 8:49 AM Felton Donahue MD DIAGNOSTIC IMAGING O RDERABLES * TYPE + SCREEN PANEL (04/21/2022 3:45 AM BAND REAMER MACHINE OPERATOR) Antibody Screen NEG 5:04 AM BAND REAMER MACHINE OPERATOR [facility] BLOOD BANK LAB ABO Rh A NEG 04/21/2022 5:04 AM [facility] BLOOD BANK LAB Blood Bank BLOOD SPECIMEN / Unknown Venipuncture / Unknown 04/21/2022 3:45 AM BAND REAMER MACHINE OPERATOR 04/21/2022 3:54 AM BAND REAMER MACHINE OPERATOR Felton Donahue MD LAB - BLOOD BANK ORD ERABLES Performing Organization Address [facility] Co de Phone Number [facility] BLOOD BANK LAB [address] [place] [phone], [facility] [phone] * PTT [facility] (04/21/2022 3:45 AM BAND REAMER MACHINE OPERATOR) APTT 30.1 23.0 - 38.4 Seconds 04/21/2022 4:21 AM [facility] Comment:Suggested therapeuti c range for full dose I.V. unfractionated heparin therapy for venous thromboembolism is 71 to 109 seconds. Blood BLOOD SPECIMEN / Unknown Venipuncture / Unknown 04/21/2022 3:45 AM BAND REAMER MACHINE OPERATOR 04/21/2022 3:54 AM BAND REAMER MACHINE OPERATOR Felton Donahue MD LAB - COAGULATION OR DERABLES Performing Organization Address [facility] Co de Phone Number [address] [address], [facility] [phone] * PT-INR [facility] (04/21/2022 3:45 AM BAND REAMER MACHINE OPERATOR) PT 13.5 12.1 - 14.8 Seconds 04/21/2022 4:20 AM [facility] INR 1.0 See Comment 04/21/2022 4:20 AM [facility] Comment:The suggested therap eutic range for standard coumadin (warfarin) therapy is an INR of 2.0-3.0. For high-risk patients (Mechanical Mitral Valve Prosthesis, etc.), the suggested prophylactic therapeutic range is an INR of 2.5-3.5. Blood BLOOD SPECIMEN / Unknown Venipuncture / Unknown 04/21/2022 3:45 AM BAND REAMER MACHINE OPERATOR 04/21/2022 3:54 AM BAND REAMER MACHINE OPERATOR Felton Donahue MD LAB - COAGULATION OR DERABLES [facility] [address] [place] [address], [facility] [phone] * (ABNORMAL) BASIC METABOLIC PANEL (CALCIUM TOTAL) (04/21/2022 3:45 AM BAND REAMER MACHINE OPERATOR) BUN 16 7 - 26 mg/dL 04/21/2022 4:24 AM [facility] Creatinine 0.70 0.56 - 0.96 mg/dL 04/21/2022 4:24 AM [facility] Sodium 137 136 - 145 mmol/L 04/21/2022 4:24 AM [facility] Potassium 4.4 3.5 - 4.5 mmol/L 04/21/2022 4:24 AM [facility] Chloride 106 98 - 107 mmol/L 04/21/2022 4:24 AM [facility] CO2 23 22 - 29 mmol/L 04/21/2022 4:24 AM [facility] Glucose 157(H) 70 - 115 mg/dL 04/21/2022 4:24 AM [facility] Calcium 8.6 8.4 - 10.2 mg/dL 04/21/2022 4:24 AM [facility] Anion Gap 12 8 - 18 04/21/2022 4:24 AM [facility] BUN/Creatinine Ratio 23 7 - 23 04/21/2022 4:24 AM [facility] Osmolality Calculated 288 270 - 300 mOsm/kg 04/21/2022 4:24 AM [facility] eGFR by CKD-EPI >90 >=90 mL/min/1.7 3 m2 04/21/2022 4:24 AM [facility] Blood BLOOD SPECIMEN / Unknown Venipuncture / Unknown 04/21/2022 3:45 AM BAND REAMER MACHINE OPERATOR 04/21/2022 3:54 AM [facility] Felton Donahue MD LAB - CHEMISTRY ORDE RABLES [facility] [address] [place] [address], [facility] [phone] * (ABNORMAL) CBC W/O DIFFERENTIAL (04/21/2022 3:45 AM [facility]) WBC 12.7(H) 3.5 - 10.5 10? 3 /uL 04/21/2022 3:57 AM [facility] RBC 4.22 3.80 - 5.20 10? 6 /uL 04/21/2022 3:57 AM [facility] Hemoglobin 12.3 12.0 - 15.6 g/dL 04/21/2022 3:57 AM [facility] Hematocrit 37.6 35.0 - 45.0 % 04/21/2022 3:57 AM [facility] MCV 89.1 80.7 - 98.3 fL 04/21/2022 3:57 AM [facility] MCH 29.1 26.7 - 34.0 pg 04/21/2022 3:57 AM [facility] MCHC 32.7 30.8 - 35.9 g/dL 04/21/2022 3:57 AM [facility] RDW-SD 44.2 36.0 - 50.0 fL 04/21/2022 3:57 AM [facility] RDW-CV 13.6 11.2 - 14.8 % 04/21/2022 3:57 AM [facility] Platelet Count 253 150 - 400 10? 3 /uL 04/21/2022 3:57 AM [facility] MPV 9.9 9.4 - 12.9 fL 04/21/2022 3:57 AM [facility] nRBC Absolute 0.00 0 10? 3 /uL 04/21/2022 3:57 AM [facility] nRBC Auto 0.0 0 /100 WBC 04/21/2022 3:57 AM [facility] Blood BLOOD SPECIMEN / Unknown Venipuncture / Unknown 04/21/2022 3:45 AM BAND REAMER MACHINE OPERATOR 04/21/2022 3:53 AM [facility] Felton Donahue MD LAB - HEMATOLOGY ORD ERABLES [facility] [address] [place] [address] [phone] * Moderate Sedation (04/21/2022 2:33 AM BAND REAMER MACHINE OPERATOR) Narrative Felton Donahue MD - 04/21/2022 2:33 AM BAND REAMER MACHINE OPERATOR Felton Donahue MD ? 04/21/2022 ??7:00 AM [...] ??Alternatives discussed: ??Analgesia without sedation and anxiolysis Goldsmith protocol: ??Procedure explained and questions answered to [...] and propofol) ??Intra-procedure monitoring: ??Blood pressure monitoring, tender labor, continuous capnometry, continuous pulse oximetry, frequent LOC [...] XR ELBOW RIGHT 2VW (04/21/2022 2:30 AM BAND REAMER MACHINE OPERATOR) Anatomical Region Laterality Modality Upper Extremity Radiographic Davida ging 04/21/2022 2:56 AM BAND REAMER MACHINE OPERATOR Narrative 04/21/2022 8:45 AM BAND REAMER MACHINE OPERATOR PROCEDURE: ??XR ELBOW RIGHT 2VW, DATE/TIME OF EXAM: ??04/21/2022 2:30 AM, LOCATION ??[facility] INDICATION: W19.XXXA: Fall, initial encounter ADDITIONAL [...] x-ray. Report dictated by Simin Mayes MD (vice president integrated). Funmilayo Oro MD have personally reviewed and interpreted this examination/study. > Interpreting Provider: Funmilayo Diaz MD on 04/21/2022 8:45 AM Procedure Note Funmilayo Diaz MD - 04/21/2022 PROCEDURE: XR ELBOW RIGHT 2VW, DATE/TIME OF EXAM: 04/21/2022 2:30 AM, LOCATION [facility] INDICATION: W19.XXXA: Fall, initial encounter ADDITIONAL [...] x-ray. Report dictated by Simin Mayes MD (vice president integrated). Funmilayo Oro MD have personally reviewed and interpreted this examination/study. > Interpreting Provider: Funmilayo Diaz MD on 04/21/2022 8:45 AM Felton Donahue MD DIAGNOSTIC IMAGING O RDERABLES * XR STRESS ANY JOINT (04/21/2022 2:06 AM BAND REAMER MACHINE OPERATOR) Anatomical Region Laterality Modality Lower Extremity, Upper Extremity Radiographic Imaging 04/21/2022 1:46 AM BAND REAMER MACHINE OPERATOR Impressions 04/21/2022 8:44 AM BAND REAMER MACHINE OPERATOR IMPRESSION: Moderately displaced, comminuted fracture of the distal humerus extending from the medial epicondyle to the articular surface. Tiny ossific fragment adjacent to the olecranon may represent tendinous calcification versus a small avulsion fracture. Report dictated by Simin Mayes MD (vice president integrated). Funmilayo Oro MD have personally reviewed and interpreted this examination/study. > Interpreting Provider: Funmilayo Diaz MD on 04/21/2022 8:44 AM Narrative 04/21/2022 8:44 AM BAND REAMER MACHINE OPERATOR PROCEDURE: ??XR HUMERUS RIGHT 2VW OR MORE, XR ELBOW RIGHT 2VW, XR STRESS ANY JOINT, DATE/TIME OF EXAM: ??04/21/2022 1:36 AM, LOCATION ??[facility] INDICATION: W19.XXXA: Fall, initial encounter ADDITIONAL CLINICAL INFORMATION: Ordering Provider Reason For Exam: ??Trauma (accession [id number]), Trauma (accession [id number]), trauma (accession [id number]) COMPARISON: None. FINDINGS: Right humerus: There is [...] DATE/TIME OF EXAM: 04/21/2022 1:36 AM, LOCATION [facility] INDICATION: W19.XXXA: Fall, initial encounter ADDITIONAL CLINICAL INFORMATION: Ordering Provider Reason For Exam: Trauma (accession [id number]), Trauma (accession [id number]), trauma (accession [id number]) COMPARISON: None. FINDINGS: Right humerus: There is [...] fracture. Report dictated by Simin Mayes MD (vice president integrated). Funmilayo Oro MD have personally reviewed and interpreted this examination/study. > Interpreting Provider: Funmilayo Diaz MD on 04/21/2022 8:44 AM Felton Donahue MD DIAGNOSTIC IMAGING O RDERABLES * XR HUMERUS RIGHT 2VW OR MORE (04/21/2022 1:35 AM BAND REAMER MACHINE OPERATOR) Anatomical Region Laterality Modality Upper Extremity Radiographic Davida ging 04/21/2022 1:46 AM BAND REAMER MACHINE OPERATOR Impressions 04/21/2022 8:44 AM BAND REAMER MACHINE OPERATOR IMPRESSION: Moderately displaced, comminuted fracture of the distal humerus extending from the medial epicondyle to the articular surface. Tiny ossific fragment adjacent to the olecranon may represent tendinous calcification versus a small avulsion fracture. Report dictated by Simin Mayes MD (vice president integrated). Funmilayo Oro MD have personally reviewed and interpreted this examination/study. > Interpreting Provider: Funmilayo Diaz MD on 04/21/2022 8:44 AM Narrative 04/21/2022 8:44 AM BAND REAMER MACHINE OPERATOR PROCEDURE: ??XR HUMERUS RIGHT 2VW OR MORE, XR ELBOW RIGHT 2VW, XR STRESS ANY JOINT, DATE/TIME OF EXAM: ??04/21/2022 1:36 AM, LOCATION ??[facility] INDICATION: W19.XXXA: Fall, initial encounter ADDITIONAL CLINICAL INFORMATION: Ordering Provider Reason For Exam: ??Trauma (accession [id number]), Trauma (accession [id number]), trauma (accession [id number]) COMPARISON: None. FINDINGS: Right humerus: There is [...] DATE/TIME OF EXAM: 04/21/2022 1:36 AM, LOCATION [facility] INDICATION: W19.XXXA: Fall, initial encounter ADDITIONAL CLINICAL INFORMATION: Ordering Provider Reason For Exam: Trauma (accession [id number]), Trauma (accession [id number]), trauma (accession [id number]) COMPARISON: None. FINDINGS: Right humerus: There is [...] fracture. Report dictated by Simin Mayes MD (vice president integrated). I, Funmilayo Diaz MD have personally reviewed and interpreted this examination/study. > Interpreting Provider: Funmilayo Diaz MD on 04/21/2022 8:44 AM Felton Donahue MD DIAGNOSTIC IMAGING O RDERABLES * XR ELBOW RIGHT 2VW (04/21/2022 1:35 AM BAND REAMER MACHINE OPERATOR) Anatomical Region Laterality Modality Upper Extremity Radiographic Davida ging 04/21/2022 1:46 AM BAND REAMER MACHINE OPERATOR Impressions 04/21/2022 8:44 AM BAND REAMER MACHINE OPERATOR IMPRESSION: Moderately displaced, comminuted fracture of the distal humerus extending from the medial epicondyle to the articular surface. Tiny ossific fragment adjacent to the olecranon may represent tendinous calcification versus a small avulsion fracture. Report dictated by Simin Mayes MD (vice president integrated). I, Funmilayo Diaz MD have personally reviewed and interpreted this examination/study. > Interpreting Provider: Funmilayo Diaz MD on 04/21/2022 8:44 AM Narrative 04/21/2022 8:44 AM BAND REAMER MACHINE OPERATOR PROCEDURE: ??XR HUMERUS RIGHT 2VW OR MORE, XR ELBOW RIGHT 2VW, XR STRESS ANY JOINT, DATE/TIME OF EXAM: ??04/21/2022 1:36 AM, LOCATION ??[facility] INDICATION: W19.XXXA: Fall, initial encounter ADDITIONAL CLINICAL INFORMATION: Ordering Provider Reason For Exam: ??Trauma (accession [id number]), Trauma (accession [id number]), trauma (accession [id number]) COMPARISON: None. FINDINGS: Right humerus: There is [...] DATE/TIME OF EXAM: 04/21/2022 1:36 AM, [facility] INDICATION: W19.XXXA: Fall, initial encounter ADDITIONAL CLINICAL INFORMATION: Ordering Provider Reason For Exam: Trauma (accession [id number]), Trauma (accession [id number]), trauma (accession [id number]) COMPARISON: None. FINDINGS: Right humerus: There is [...] fracture. Report dictated by Simin Mayes MD (vice president integrated). I, Funmilayo Diaz MD have personally reviewed [...] of right humerus, initial encounter Essential hypertension Closed fracture of distal end of right humerus, unspecified fracture morphology, initial encounter documented in this encounter Administered Medications Inactive [...] the MAR. $ Given 04/23/2022 11:47 AM BAND REAMER MACHINE OPERATOR 650 mg $ Given 04/23/2022 6:21 AM BAND REAMER MACHINE OPERATOR 650 mg $ Given 04/23/2022 12:21 AM BAND REAMER MACHINE OPERATOR 650 mg ofkqwkcy-ieyrqzcuh-ppgkxumcruz (Maalox; Mylanta) suspension 20 mL 20 mL, Oral, EVERY 6 HOURS PRN, GI Upset, Starting on Thu04/21/22 at 0601, Until Thu04/23/22 at 1900, Shake well before using. docusate sodium (Colace) capsule 100 mg 100 mg, Oral, 2 TIMES DAILY, First dose on Thu04/21/22 at 0900, Until Discontinued $ Given 04/23/2022 8:53 AM B[employer] MACHINE OPERATOR 100 mg $ Given 04/22/2022 9:23 AM BAND RE[employer] MACHINE OPERATOR 100 mg $ Given 04/21/2022 8:53 PM BAND [employer] MACHINE OPERATOR 100 mg enoxaparin (Lovenox) injection 40 mg 40 mg, Subcutaneous, DAILY, First dose on Thu04/21/22 at 0900, Until Discontinued, (for prefilled syringes) do not expel air bubble from the syringe prior to the injection Remind Patient to not rub injection site. Could cause hematoma. $ Given 04/23/2022 8:53 AM B[employer] MACHINE OPERATOR 40 mg Ab dominal Tissue $ Given 04/22/2022 9:23 AM BAND RE[employer] MACHINE OPERATOR 40 mg Le ft Arm $ Given 04/21/2022 7:52 AM B[employer] MACHINE OPERATOR 40 mg Ab d Right Lower Quadrant FLUoxetine (PROzac) capsule 40 mg 40 mg, Oral, 2 TIMES DAILY, First dose on Thu04/21/22 at 0700, Until Discontinued $ Given 04/23/2022 11:47 AM B[employer] MACHINE OPERATOR 40 mg $ Given 04/23/2022 6:21 AM BAND RE[employer] MACHINE OPERATOR 40 mg $ Given 04/22/2022 11:40 AM B[employer] RE[employer] MACHINE OPERATOR 40 mg HYDROmorphone (Dilaudid) injection 0.4 mg [...] the MAR. $ Given 04/21/2022 5:54 AM BAND RE[employer] MACHINE OPERATOR 0.5 mg lactated ringers infusion at 75 mL/hr, Intravenous, CONTINUOUS, Starting on Thu04/21/22 at 0630, Until Thu04/23/22 at 1900 $ New Bag/Syringe 04/22/2022 4:12 PM BAND REAMER MACHINE OPERATOR 75 mL/hr $ New Bag/Syringe 04/22/2022 12:33 AM BAND REAMER MACHINE OPERATOR 75 mL /hr $ New Bag/Syringe 04/21/2022 6:27 AM BAND REAMER MACHINE OPERATOR 75 mL/ hr losartan (Cozaar) tablet 100 mg 100 mg, Oral, DAILY, First dose on Thu04/21/22 at 0900, Until Discontinued $ Given 04/23/2022 8:53 AM BAND REAMER MACHINE OPERATOR 100 mg $ Given 04/22/2022 9:23 AM BAND REAMER MACHINE OPERATOR 100 mg $ Given 04/21/2022 7:51 AM BAND REAMER MACHINE OPERATOR 100 mg melatonin tablet 3 mg 3 mg, Oral, AT BEDTIME PRN, Insomnia, Starting on Thu04/21/22 at 0601, Until Thu04/23/22 at 1900 methocarbamol (Robaxin) tablet 750 mg 750 mg, Oral, EVERY 6 HOURS PRN, Muscle Spasms, Starting on Thu04/21/22 at 0602, Until Thu04/23/22 at 1900 $ Given 04/23/2022 6:21 AM BAND REAMER MACHINE OPERATOR 750 mg $ Given 04/22/2022 6:20 PM BAND REAMER MACHINE OPERATOR 750 mg $ Given 04/22/2022 9:23 AM BAND REAMER MACHINE OPERATOR 750 mg ondansetron (disintegrating) (Zofran ODT) tablet [...] in half. $ Given 04/23/2022 8:52 AM BAND REAMER MACHINE OPERATOR 10 mg $ Given 04/22/2022 9:23 AM BAND REAMER MACHINE OPERATOR 10 mg $ Given 04/21/2022 7:51 AM BAND REAMER MACHINE OPERATOR 10 mg oxyCODONE (immediate release) (Roxicodone) tablet 10 mg 10 mg, Oral, EVERY 4 HOURS PRN, Severe Pain, Starting on Thu04/21/22 at 0601, Until Thu04/23/22 at 190, Patient preference for lesser PRN pain meds may be honored when the patient requests a less strong medication, a lower dose, or a less intrusive route of administration when the lesser drug, dose and route have been ordered for the patient. This patient request must be documented in the MAR., Allow a repeat dose for severe pain? No $ Given 04/22/2022 6:20 PM BAND REAMER MACHINE OPERATOR 10 mg $ Given 04/22/2022 1:54 PM BAND REAMER MACHINE OPERATOR 10 mg $ Given 04/22/2022 3:36 AM BAND REAMER MACHINE OPERATOR 10 mg oxyCODONE (immediate release) (Roxicodone) tablet [...] the MAR. $ Given 04/22/2022 9:23 AM BAND REAMER MACHINE OPERATOR 5 mg polyethylene glycol 3350 (Miralax) packet 17 g 17 g, Oral, DAILY PRN, Constipation, Starting on Thu04/21/22 at 0601, Until Thu04/23/22 at 1900, Mix in 8 ounces of water, juice, soda, coffee or tea prior to administration ropivacaine 0.2% On-Q C-bloc Oxdycz-E-Hqer single catheter infusion 2 mg/ml 600 ml [...] Post-op $ New Bag/Syringe 04/21/2022 7:39 PM BAND REAMER MACHINE OPERATOR 1,200 mg 2 mL/hr documented in this encounter Active and Recently Administered Medications Times are shown in BAND REAMER MACHINE OPERATOR. Scheduled Medication Order 04/21/2022 04/22/2022 04/23/2022 acetaminophen [...] Carbone RN)0553 ($ Given - Provider: Phyllis Carbone RN)1140 ($ Given - Provider: Liza Xie, MULU)1820 ($ Given - Provider: Liza Xie RN) 0021 ($ Given - Provider: Phyllis Carbone RN)0621 ($ Given - Provider: Phyllis Carbone, MULU)1147 ($ Given - Provider: Meme Chu, RN) docusate sodium (Colace) capsule 100 mg 100 mg, Oral, 2 TIMES DAILY, First dose on Thu04/21/22 at 0900, Until Discontinued 0751 ($ Given - Provider: Kelly Ferrera RN)2052 ($ Given - Provider: Phyllis Carbone, MULU) 0923 ($ Given - Provider: Liza Xie RN)2030 (Not Administered - Provider: Phyllis Carbone RN - Reason: Refused-Patient) 0853 ($ Given - Provider: Meme Chu, MULU) enoxaparin (Lovenox) injection 40 mg 40 mg, [...] RN) 0609 ($ Given - Provider: Phyllis Carbone, MULU)1140 ($ Given - Provider: Liza Xie RN) [...] request must be documented in the MAR. 0109 ($ Given - Provider: Antoinette Frazier RN) [...] MULU) 0852 ($ Given - Provider: Meme Chu, MULU) Continuous Medication Order 04/21/2022 04/22/2022 04/23/2022 lactated ringers infusion at 75 mL/hr, Intravenous, CONTINUOUS, Starting on Thu04/21/22 at 0630, Until Thu04/23/22 at 1900 0627 ($ New Bag/Syringe - Provider: Antoinette Frazier RN) 0033 ($ New Bag/Syringe - Provider: Phyllis Carbone RN)1612 ($ New Bag/Syringe - Provider: Liza Xie RN) ropivacaine 0.2% On-Q C-bloc Hzjjgv-R-Wmus single catheter infusion 2 mg/ml 600 ml [...] RN) PRN Medication Order 04/21/2022 04/22/2022 04/23/2022 dajylsor-skdtxwwnp-ztxgwg icone (Maalox; Mylanta) suspension 20 mL 20 [...] patient request must be documented in the , PACU 1954 ($ Given - Provider: Va [...] 0217 0157 ($ Given - Provider: Deonte Jackosn MD)0217 ($ Given - Provider: Deonte Jackson [...] Carbone RN)1354 ($ Given - Provider: Liza Xie, RN)1820 ($ Given - Provider: Liza Xie, RN) oxyCODONE (immediate release) (Roxicodone) tablet 5 [...] swallow. documented in this encounter Care Teams Nursing Executive Relationship Specialty Start Date End Date Dimitri Parry MD PCP - General Internal Medicine 04/21/22 documented as of this encounter
--- OUTSIDE RECORDS SUMMARY | 2024-03-24 23:45 | XMS_ITS | Encounter Summary ---
Author Organization [facility] Address [address] [place] [address] Care Team Providers Care Bacteriologist Soil Name Role Phone Dimitri Parry MD Primary Care Provider [phone] Reason for Visit * Reason Comments Surgical Follow-up Encounter Details Date Type Department Care Team (Late st Contact Info) Description 04/30/2022 9:30 AM SHELLFISH PROCESSING MACHINE TENDER Office Visit [facility] - Orthopedics [address] [place] [address], [facility] [place] [address] Shai Greene MD [address] [place] [address] [place] [address] Other closed displaced fracture of distal end [...] - - Weight 77.1 kg (170 lb) 04/30/2022 9:32 AM SHELLFISH PROCESSING MACHINE TENDER Height 165.1 cm (5' 5 ) 04/30/2022 9:32 AM SHELLFISH PROCESSING MACHINE TENDER Body Mass Index 28.29 04/30/2022 9:32 AM SHELLFISH PROCESSING MACHINE TENDER documented in this encounter Patient Instructions * Patient Instructions* Shai Brady IV, MD - 04/30/2022 9:28 AM SHELLFISH PROCESSING MACHINE TENDER Images from the original note were not included. Department of Orthopaedic Surgery America Ai 04/30/2022 Thank you for allowing us to care for you today. You were seen in clinic today for post-op follow up Please use this note as a school/work excuse: patient had appointment on 04/30/2022. Diagnosis: Other closed displaced fracture of distal end of right humerus with routine healing, subsequent encounter Your weight bearing (WB) status will be NWB of the right upper extremity We recommend that you try the following for your injury: Activities as tolerated icing and tylenol Monitor for signs of infection including increasing warmth, redness, pain, or drainage. Physical therapy Hinged elbow brace Prescriptions: none Medications over the counter: - Acetaminophen (Tylenol) 500mg 1-2 tablets every 6 hours as needed for pain, not exceeding daily total of 4000mg. Please note that narcotic medications can consist of same ingredient. Recommend the following to promote bone health: Multivitamin 1 tablet daily Vitamin D3 2000 IU 1 tablet daily Calcium 600mg with Vitamin D 400 IU 2 tablets daily Please make a follow up appointment for 4 weeks or if something about your condition significantly changes. Please call the clinic if you have any questions. [facility] Orthopaedic office contact information: [facility] ([facility]) - 1st Floor [address] [place] [id number] For after hour concerns, please call and press 0 for the photocopy operator in order to page the orthopedic resident home health clinical liaison. Visit our website at [email or web address] for information about our practice and an interactive health encyclopedia. Please visit [email or web address] to access your health record, ask questions, request medication refills, and request appointments for non-urgent needs after you have configured your [employer] account. If you do not currently have access, please contact one of our staff members or call [phone]. LFISH PROCESSING MACHINE TENDER documented in this encounter Progress Notes * Celina Buckner - 04/30/2022 9:25 AM CST Postop follow up PROCEDURES PERFORMED: 1. Open reduction and internal fixation intra-articular comminuted distal humerus fracture with olecranon osteotomy and medial and lateral plates and articular stabilization. 2. ORIF coronal plane shear capitellar and trochlear fractures Cast removed in clinic today. Leighann taken out today. LFISH PROCESSING MACHINE TENDER * Shai Brady IV, MD - 04/30/2022 9:25 AM CST Orthopaedic Trauma Surgery Clinic Note America Cloud 66 year old female CSN: [id number] Date of service: 04/30/2022 HPI America Cloud is a 66 year old female who had a right distal humerus fracture and was treated with ORIF on 04/23/22. This is the patient's first visit since being discharged from hospital. Pain hasbeen controlled since the last clinic visit. The pain is located in the elbow. The patient has beenNWB of the right upper extremity since She was last seen. No other orthopedic complaints at this time. Denies any recent fever or chills, tingling, numbness. She is a nonsmoker. Review of Systems A complete organ system review completed and is only significant for right elbow injury. Medical History No past medical history on file. Non-contributory Surgical History Past Surgical History: Procedure Laterality Date ??? HUMERAL FRACTURE REPAIR Right 04/21/2022 Right; OPEN REDUCTION INTERNAL FIXATION (ORIF) RIGHT HUMERUS ??? Osteotomy Right 04/21/2022 Right; OSTEOTOMY HUMERUS Non-contributory MEDICATIONS Current Outpatient Medications on File Prior to Visit Medication Sig Dispense Refill ??? acetaminophen (Tylenol) 325 MG tablet Take 2 (two) tablets by mouth every 6 hours for 10 days Maximum allowable Acetaminophen amount = 4 Grams (4000 mg) / 24 hours. 80 tablet 0 ??? aspirin (Aspirin) 325 MG tablet Take 1 (one) tablet by mouth once daily for 35 days 35 tablet 0 ??? buPROPion SR 12hr (Wellbutrin-SR) 150 MG tablet Take 1 (one) tablet by mouth 2 times daily ??? cyclobenzaprine (Flexeril) 5 MG tablet Take 1 (one) tablet by mouth 3 times daily as needed 20 tablet 0 ??? docusate sodium (Colace) 100 MG capsule Take 1 (one) capsule by mouth 2 times daily for 10 days20 capsule 0 ??? FLUoxetine (PROzac) 40 MG capsule Take 2 (two) capsules by mouth once daily ??? fluticasone propionate (Flonase) 50 MCG/ACT nasal spray [place] 1 (one) spray into the nose once [...] (one) tablet by mouth once daily ??? oxyCODONE, immediate release, (Roxicodone) 5 MG tablet Take 1 (one) tablet by mouth every 4 hours as needed 40 tablet 0 ??? polyethylene glycol 3350 (Miralax) 17 g packet Take 17 (seventeen) g by mouth once daily as needed for Constipation No current facility-administered medications on file prior [...] of erythema, dehiscence, or drainage. There is tenderness of the elbow. ROM of elbow is 100 flexion and lacks 30 degrees full extension. intact motor R/M/U/AIN/PIN, Sensation: intact to light touch in R/M/U nerve distributions distally, 2+ Radial pulse. Imaging Results independently reviewed in clinic. XR 3 view(s) right elbow: Demonstrates good alignment with hardware in place. Hardware is intact with no evidence loose or broken screws. Assessment and Plan Other closed displaced fracture of distal end of right humerus with routine healing, subsequent encounter This is a 66 year old female who is 1 week status post right humerus ORIF. 1. Ms. Cloud was counseled as to her diagnosis 2. Images reviewed in office with patient 3. She demonstrated understanding 4. The patient's weight bearing status will be NWB of the right upper extremity 5. The patient was placed into a HEB unlocked today. 6. Oyster Unloader ROM of joints along with Vitamin D and calcium supplementation for bone health. 7. Work: unable to work 8. Prescriptions: none 9. Follow up in 4 weeks 10. XR needed at follow up: Yes - 3 view(s) XR of the right elbow 11. She will call in the interim with any questions or concerns. Shai Brady IV, MD 04/30/2022 9:29 AM LFISH PROCESSING MACHINE TENDER Associated attestation - Shai Greene MD - 04/30/2022 11:30 AM SHELLFISH PROCESSING MACHINE TENDER I have reviewed the history and pertinent physical findings on clinical exam of the patient. I agree with the residents assessment and I personally examined the patient myself with the crucial physical findings as noted below. The wound is well healed the swelling is minimal but she has extensive bruising. The leighann are intact with no drainage in these were removed today. X-rays demonstrate no loss of reduction with excellent stabilization of the highly comminuted intra-articular distal humerus fracture with small capitellar and trochlear fixation as well as olecranonosteotomy. Would like to place an elbow hinged brace to -20 short of full extension and full flexion given scripts that she can initiate physical therapy on her own. She most remove the brace for therapy and can take it off while sedentary activities. Would like to follow up in 1 month with AP distal humerus and cross-table lateral right elbow. documented in this encounter Plan of Treatment Not on file documented as of this encounter Visit Diagnoses Diagnosis Other closed displaced fracture of distal end of right humerus with routine healing, subsequent encounter- Primary documented in this encounter Care Teams Bacteriologist Soil Relationship Specialty Start Date End Date Dimitri Parry MD PCP - General Internal Medicine 04/21/22 documented as of this encounter
--- OUTSIDE RECORDS SUMMARY | 2024-03-24 23:45 | XMS_ITS | Encounter Summary ---
Author Organization [facility] Address [address] [place] [address] Care Team Providers Care Work Force Advisor Name Role Phone Dimitri Parry MD Primary Care Provider [phone] Encounter Details Date Type Department Care Team (Late st Contact Info) Description 07/23/2022 9:45 AM CDT Office Visit [facility] - Orthopedics [address] [place] [address], [facility] [place] [address] Shai Greene MD [address] [place] [address] OF ORTHOPEDIC SURGERY [place], [place] [id number] Other closed displaced fracture of distal end [...] (170 lb) 07/23/2022 10:13 AM CDT Height - - Body Mass Index 28.29 04/30/2022 9:32 AM SUPERVISOR QUALITY CONTROL documented in this encounter Patient Instructions * Patient Instructions* Becka Welsh - 07/23/2022 10:22 AM CDT Department of Orthopaedic Surgery America Dc Ai 07/23/2022 Thank you for allowing us to care for you today. You were seen in clinic today for follow up Please use this note as a school/work excuse: patient had appointment on 07/23/2022. Diagnosis: Other closed displaced fracture of distal end of right humerus with routine healing, subsequent encounter Your weight bearing (WB) status will be WBAT of the right upper extremity We recommend that you try the following for your injury: Activities as tolerated Monitor for signs of infection including increasing [...] glycol) - these can all be purchased [id number] at your local pharmacy. Swelling is normal after any injury and surgery. Elevate the affected extremity to help reduce swelling. Will continue physical therapy for an additional month Medications over the counter: - Acetaminophen (Tylenol) [...] Please make a follow up appointment for 2 months or if something about your condition significantlychanges. Please call the clinic if you have any questions. [facility] Orthopaedic office contact information: [facility] ([facility]) - 1st Floor [address] [place] [address] For after hour concerns, please call and press 0 for the buttermilk drier operator in order to page the orthopedic resident customer solutions specialist. Visit our website at www.[facility] for information about our practice and an interactive health encyclopedia. Please visit [employer].[facility] to access your health record, ask questions, request medication refills, and request appointments for non-urgent needs after you have configured your [employer] account. If you do not currently have access, please contact one of our staff members or call [phone]. documented in this encounter Progress Notes * Shai Greene MD - 07/28/2022 1:04 PM CDT HPI America Cloud is a 67 year old female who had a Right distal humerus fracture and was treatedwith ORIF on 04/23/[address] Greene. Patient was last seen in clinic on 06/25/22. Pain has been controlled since the last clinic visit. The patient has been WBAT of the right upper extremity since She was last seen. No other orthopedic complaints at this time. Denies any recent fever or chills, tingling, numbness. She is a 1/2-1ppd smoker. 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 Patient-Reported Satisfaction 07/23/2022 Current state satisfactory? No Prior treatment? Yes - surgery Function since surgery Improved Currently taking narcotics? No PROMIS Upper Extremity 07/23/2022 06/25/2022 05/28/2022 PROMIS UE Function Score 35 (moderate dysfunction) 32 (moderate dysfunction) 32 (moderate dysfunction) PROMIS Pain Interference 07/23/2022 06/25/2022 05/28/2022 PROMIS PI Score 56 (mild) 47 (within normal limits) 47 (within normal limits) Review of Systems A complete organ system review completed and is only significant for as above in HPI. Medical History No past medical history on [...] fluticasone propionate (Flonase) 50 MCG/ACT nasal spray [place] 1 (one) spray into the nose once [...] Day Types: Cigarettes ??? Smokeless tobacco: Never Vaping Use ??? Vaping status: Not on file Substance Use Topics ??? [...] drainage. There is no tenderness of the incision sites today. ROM of right arm Flexion 100 Extension -10. intact motor R/M/U/AIN/PIN, Sensation: intact to light touch in R/M/U nerve distributions distally, 2+ Radial pulse. Imaging Results independently reviewed in clinic. XR 3 view(s) right elbow: Demonstrates good alignment with fixation. Hardware is intact with no evidence loose or broken screws. Assessment and Plan Other closed displaced fracture of distal end of right humerus with routine healing, subsequent encounter This is a 67 year old female who is 12.5 weeks status post ORIF R distal humerus by Dr. Greene on 04/23/22. 1. Ms. Cloud was counseled as to her diagnosis 2. Images reviewed in office with patient 3. She demonstrated understanding 4. The patient's weight bearing status will be WBAT of the right upper extremity 5. Reordering Clerk ROM of joints along with Vitamin D and calcium supplementation for bone health. 6. Prescriptions: none 7. Will continue PT for 1 month 8. Follow up in 2 months 9. XR needed at follow up: Yes - 3 view(s) XR of the Right elbow 10. She will call in the interim with any questions or concerns. 07/23/2022 10:24 AM * Edie Johnson RN - 07/23/2022 10:58 AM CDT Patient here who had ORIF R Distal Humerus Fracture, WBAT RUE. ROM is better, requesting for another referral to PT. Pain is controlled, does not take anything for pain. Denies numbness, tingling, fever or chills. * Becka Welsh - 07/23/2022 10:24 AM CDT Orthopaedic Trauma Surgery Clinic Note America Cloud 67 year old female CSN: [id number] Date of service: 07/23/2022 documented in this encounter Plan of Treatment Not on file documented as of this encounter Visit Diagnoses Diagnosis Other closed displaced fracture of distal end of right humerus with routine healing, subsequent encounter- Primary documented in this encounter Care Teams Work Force Advisor Relationship Specialty Start Date End Date Dimitri Parry MD PCP - General Internal Medicine 04/21/22 documented as of this encounter
--- OUTSIDE RECORDS SUMMARY | 2024-03-24 23:45 | XMS_ITS | Encounter Summary ---
Author Organization [facility] Address [address] [place] [address] Care Team Providers Care Coremaker Apprentice Name Role Phone Dimitri Parry MD Primary Care Provider [phone] Encounter Details Date Type Department Care Team (Late st Contact Info) Description 05/28/2022 9:45 AM MONUMENT MASON Office Visit [facility] - Orthopedics [address] [place] [address], [place] [address] Shai Greene MD [address] [place] [address] OF ORTHOPEDIC SURGERY [place], [place] [id number] Other closed displaced fracture of distal end [...] - - Weight 77.1 kg (170 lb) 05/28/2022 9:54 AM MONUMENT MASON Height - - Body Mass Index 28.29 04/30/2022 9:32 AM MONUMENT MASON documented in this encounter Patient Instructions * Patient Instructions* Angela Washington PA-C - 05/28/2022 10:07 AM MONUMENT MASON Images from the original note were not included. Department of Orthopaedic Surgery America Fultond 05/28/2022 Thank you for allowing us to care for you today. You were seen in clinic today for follow up Please use this note as a school/work excuse: patient had appointment on 05/28/2022. Diagnosis: Other closed displaced fracture of distal end of right humerus with routine healing, subsequent encounter Your weight bearing (WB) status will be WB <5lbs of the right upper extremity We recommend that you try the following for your injury: Activities as tolerated Physical therapy exercises Scar massage Stop smoking as this slows bone healing Prescriptions: none Medications over the counter: - [...] the clinic if you have any questions. [facility] Orthopaedic office contact information: [facility] ([facility]) - [address]st [address] [place] [id number] For after hour concerns, please call and press 0 for the heel coverer machine operator in order to page the orthopedic resident stone lathe operator. Visit our website at [email or web address] for information about our practice and an interactive health encyclopedia. Please visit [email or web address] to access your health record, ask questions, request medication refills, and request appointments for non-urgent needs after you have configured your [employer] account. If you do not currently have access, please contact one of our staff members or call [phone]. MENT MASON documented in this encounter Progress Notes * Edie Johnson RN - 05/28/2022 10:08 AM CST Patient doing well, NWB RUE, post ORIF R Distal Humerus Fracture. Pain is minimal and controlled, takes OTC pain medications PRN. Denies numbness, tingling, fever or chills. Working on elbow ROM. MENT MASON * Angela Washington PA-C - 05/28/2022 9:46 AM CST Orthopaedic Trauma Surgery Clinic Note America Cloud 66 year old female CSN: [id number] Date of service: 05/28/2022 Treatment History DOI: 04/21/22 GORDON: fall Injuries: Right distal humerus Surgeries: - 04/23/22: ORIF R distal humerus HPI America Cloud is a 66 year old female presents to clinic for follow up. She underwent the above surgery with Dr. Greene 5 weeks ago. Patient was last seen in clinic on 04/30/22. Patient states pain has been controlled. Pain is located in the R elbow and described as achy. The patient has been NWB of the right upper extremity with HEB since she was last seen. Denies any recent fever or chills,tingling, numbness. Denies complications at incision site, including drainage, excessive swelling, fever, evidence of dehiscence. She is a 1/2 to 1 ppd smoker. Prior to injury, pt worked as a [employer] setting. PROMS Questionnaire Patient-Reported Satisfaction 05/28/2022 Current state satisfactory? No Prior treatment? Yes - surgery Function since surgery Improved Currently taking narcotics? No PROMIS Upper Extremity 05/28/2022 PROMIS UE Function Score 32 (moderate dysfunction) PROMIS Pain Interference 05/28/2022 PROMIS PI Score 47 (within normal limits) Depression Screening 05/28/2022 PHQ-2 Score 0 (Further screening not recommended) Review of Systems A complete organ system [...] to Visit Medication Sig Dispense Refill ??? aspirin (Aspirin) 325 MG tablet Take [...] fluticasone propionate (Flonase) 50 MCG/ACT nasal spray [place] 1 (one) spray into the nose once [...] or elbow. ROM of elbow is about 30-110. Nearly full pronosupination. Intact motor R/M/U/AIN/PIN, Sensation: [...] a 66 year old female who is 5 weeks status post ORIF R distal humerus by Dr. Greene on 04/23/22. 1. Ms. Cloud was counseled as to her diagnosis and verbalizes understanding 2. Reviewed images with patient 3. The patient's weight bearing status will be WB <5lbs of the right upper extremity 4. Vitamin D and calcium supplementation for bone health 5. OK to drive 6. Daily ROM of joints, especially R elbow. 7. Physical therapy order placed 8. Work: unable to work 9. Prescriptions: none 10. Follow up in [address] Greene 11. XR needed at follow up: Yes - 3 view(s) XR of the R elbow 12. She will call in the interim with any questions or concerns. Angela Washington PA-C 05/28/2022 9:46 AM MENT MASON Associated attestation - Shai Greene MD - 05/28/2022 3:06 PM MONUMENT MASON I have reviewed the history and pertinent physical findings on clinical exam of the patient. I agree with the residents assessment and I personally examined the patient myself with the crucial physical findings as noted below. S/p ORIF distal humerus fx. Improving ROM as noted. No pain Incision well approximated with no erythema, swelling or drainage. Sutures out Good Varus / valgus stability with no axial dynamic instability noted on stress testing. No hardware irritation noted. ROM -15 to 110 X-ray demo: excellent alignment with healing of fractuew with no hardware issues noted. Continuw in PT at this time RTC 4-6 weeks with ap albow and cross table lateral documented in this encounter Plan of Treatment Not on file documented as of this encounter Visit Diagnoses Diagnosis Other closed displaced fracture of distal end of right humerus with routine healing, subsequent encounter- Primary documented in this encounter Care Teams Coremaker Apprentice Relationship Specialty Start Date End Date Dimitri Parry MD PCP - General Internal Medicine 04/21/22 documented as of this encounter
--- OUTSIDE RECORDS SUMMARY | 2024-03-24 23:45 | XMS_ITS | Encounter Summary ---
Author Organization [facility] Address [address] [place] [address] Care Team Providers Care Area Plant Manager Name Role Phone Dimitri Parry MD Primary Care Provider [phone] Reason for Visit * Auth/Cert (Routine) Specialty Diagnoses / Procedures Referred By Contac t Referred To Contact Referral ID Status Reason Start Date Expiration Date Visits Re quested Visits Authorized [id number] 1 1 Encounter Details Date Type Department Care Team (Late st Contact Info) Description 04/21/2022 2:53 PM NURSING HOME ADMINISTRATOR Anesthesia Event [facility] [address] [place] [id number] Thomas Orta MD [address] [facility] [place] [address] Daniel Sotomayor Anes Asst [address] [facility] [place] [address] Anesthesia Record Procedure Summary Procedure Name Responsible Anesthesiologist Anesthesia Start Time Anesthesia Stop Time OPEN REDUCTION INTERNAL FIXATION (ORIF) RIGHT HUMERUS (Right: Arm) Thomas Orta MD 04/21/22 1453 04/21/22 1930 Events Date Time Event Comment 04/21/2022 1415 1453 An Start 1453 Pt In Room 1453 An Start Data 1458 PT Reassessment 1500 Induction 1503 An Intubation 1509 An Data Art {Data Artifact: [id number]} 1510 Anes Ready 1530 Timeout Anesthesia part icipated in timeout at the time documented in the record by nursing. 1530 Time Out Anesthesia part icipated in timeout at the time documented in the record by nursing 1531 An Tourn Inflated Pressure: 200mmHg 1531 Proc Start 1549 An Tourn Deflated Total Tour niquet Time ( in minutes): 18 1723 Quick Note ETT suctioned 1840 Quick Note Axillary temp p robe placed 192 Proc Stop 1920 An Emergence 1921 Extubation 1923 an stop data 192 Pt out of Room 1923 ANPTO2 1930 An Stop Meds Name Total ceFAZolin 2,000 mg IVPB 2 g propofol 200mg/20mL injection 150 mg rocuronium 50 mg/5 mL injection 80 mg phenylephrine 100 mcg/mL syringe 400 mcg dexamethasone 10 mg/ml PF injection 4 mg ondansetron 4mg/2mL injection 4 mg sugammadex 200 mg/2mL injection 200 mg lidocaine PF 2% 80 mg bupivacaine PF (MARCAINE PF) 0.25 % inje ction 15 mL lidocaine (XYLOCAINE) 1 % injection 1 mL lidocaine (XYLOCAINE) 2 % injection 5 mL fentaNYL 100 mcg/2ml injection 150 mcg midazolam 2 mg/2mL injection 2 mg LR (Lactated ringers) 750 mL * Agents Name Insp. N2O Exp. Sevoflurane Exp. N2O O2 Air Insp. Sevoflurane N2O * Blood No blood administrations on file. Lines, Drains, and Airways Type Details Placement Removal Urethral Catheter 04/21/22; 939; Coud e; No; 16; 10 mL; Coude; 1; Well; 04/21/22; 1900; Per protocol 04/21/22 0940 by Kelly Ferrera RN 04/21/22 190 by Va Mei RN Peripheral IV Date: 04/21/22; Time : 1415; Orientation: Left; Placed By: annie HARDWICK; Tolerance: Well 04/21/22 1415 by Annie Galaviz RN 04/23/22 0912 by Meme Murillo RN Cont Nerve Block Catheter Date: 04/21/22; Time: 1440; Placed By: dr orta and resident; Laterality: Right 04/21/22 1440 by Annie Galaviz RN 04/24/22 0001 by Generic, Auto Release ETT Date: 04/21/22; Time : 1503; Vent: easy mask; Induction: Standard IV; Blade Type: Zachary; Blade Size: 3; Laryngoscopy View: Grade 2 (partial cords); Intubation Adjuncts: Stylet; Tube: Endotracheal Tube; Placement: Oral; Tube Type: Cuffed-inflated; Tube Size(mm): 7 MM; Depth of Insertion: 21 CM; Measured From: lips; Attempts: 1; Cuff Infated: Air; Cuff Vol(mL): 6 mL; Verified By: Direct visualization, Bilateral breath sounds, Chest Auscultation, CO2 Monitor 04/21/22 150 by Juan Dorsey DO 04/21/22 192 by Petra Yusuf MD Drain 04/21/22; 182; Dr Greene; 1; Round; Accordian; Anterior, Right; Shoulder; General Anesthesia; 04/23/22; 0700; Per order; 04/21/22 182 by Phyllis Weiss RN 04/23/22 0700 by Meme Murillo RN Procedural Site (Incision) 04/21/22; 1855; Right; Finger; 04/24/22; 0001 04/21/22 185 by Phyllis Perdomo RN 04/24/22 0001 by Generic, Auto Release Procedural Site (Incision) 04/21/22; 1855; Right; Axilla; 04/24/22; 0001 04/21/22 185 by Phyllis Perdomo RN 04/24/22 0001 by Generic, Auto Release Procedural Site (Incision) 04/21/22; 1855; Right; Hand; 04/24/22; 0001 04/21/22 185 by Phyllis Perdomo RN 04/24/22 0001 by Riley, Auto Release documented in this encounter Social History Tobacco Use Types Packs/Day Years Used Date Smoking Tobacco: Never Assessed AUDIT-C Answer Date Recorded Q1: How often do you have a drink containing alcohol? Never 04/21/2022 Q2: How many drinks containi ng alcohol do you have on a typical day when you are drinking? Patient does not drink 3 Q3: How often do you have si x or more drinks on one occasion? Never 04/21/2022 Sex and Gender Information Value Date Recorded Sex Assigned at Not on file Gender Identity Not on file Sexual Orientation Not on file documented as of this encounter Progress Notes * Miguel A Frazier MD - 04/22/2022 8:04 AM CST ANESTHESIA POSTOP EVALUATION NOTE Procedure: OPEN REDUCTION INTERNAL FIXATION (ORIF) RIGHT HUMERUS (Right: Arm) OSTEOTOMY HUMERUS (Right: Arm) America Cloud is a 66 year old female Patient Vitals for the past 6 hrs: BP Temp Pulse Resp SpO2 Pain Rating Score #1 Pain Scale/Observation 04/22/22 0336 -- -- -- -- -- 8 N 04/22/22 0355 156/73 98.1 ??F (36.7 ??C) 69 18 100 % -- -- 04/22/22 0436 -- -- -- -- -- 0 N Anesthesia Type: general ETT Pre-op Diagnosis Codes: * Closed fracture of distal end of right humerus, unspecified fracture morphology, initial encounter [S42.401A] Mental Status: awake, alert, oriented and sufficiently recovered from acute administration of anesthesia to participate in the evaluation Neuro Status: No numbness, tingling or visual disturbances Respiratory Function: natural Cardiac Function: stable Postop Pain: adequate Postop Hydration: adequate Postop Nausea: none Assessment: no apparent anesthetic complications Patient Disposition: Release from Anesthesia Care NOTABLE EVENTS: No notable events documented. ING HOME ADMINISTRATOR * Thomas Orta MD - 04/21/2022 7:36 PM CST ANESTHESIA POSTOP EVALUATION NOTE Procedure: OPEN REDUCTION INTERNAL FIXATION (ORIF) RIGHT HUMERUS (Right: Arm) OSTEOTOMY HUMERUS (Right: Arm) America Cloud is a 66 year old female Patient Vitals for the past 6 hrs: BP Temp Pulse Resp SpO2 Pain Rating Score #1 Pain Scale/Observation Pulse - (SPO2/Cuff) 04/21/22 1343 -- 99 ??F (37.2 ??C) -- -- -- -- -- -- 04/21/22 1345 154/75 -- 67 11 92 % 0 N 67 bpm 04/21/22 1346 -- -- 66 15 92 % -- -- 68 bpm 04/21/22 1409 160/86 -- -- -- -- -- -- 1.86 bpm 04/21/22 1428 160/88 -- -- 19 97 % -- -- -- 04/21/22 1439 -- -- -- -- 96 % -- -- -- Anesthesia Type: general ETT Pre-op Diagnosis Codes: * Closed fracture of distal end of right humerus, unspecified fracture morphology, initial encounter [S42.401A] Mental Status: awake and oriented Neuro Status: No numbness, tingling or visual disturbances Respiratory Function: natural Cardiac Function: stable Postop Pain: adequate Postop Hydration: adequate Postop Nausea: none Assessment: no apparent anesthetic complications, patient tolerated procedure well and no evidence of recall Patient Disposition: Follow Up Needed NOTABLE EVENTS: No notable events documented. ING HOME ADMINISTRATOR * Thomas Orta MD - 04/21/2022 8:05 AM CST ANESTHESIA PREOPERATIVE EVALUATION NOTE Procedure: OPEN REDUCTION INTERNAL FIXATION (ORIF) RIGHT HUMERUS (Right) Vitals: Patient Vitals for the past 6 hrs: BP Temp Pulse Resp SpO2 Pain Rating Score #1 04/21/22 0753 148/91 -- 70 16 98 % -- 04/21/22 0730 146/81 97.9 ??F (36.6 ??C) 68 16 96 % 5 04/21/22 0529 165/92 -- -- -- 90 % -- 04/21/22 0459 168/90 -- -- -- 90 % -- 04/21/22 0437 147/92 -- -- -- 93 % -- 04/21/22 0407 164/89 -- -- -- 91 % -- 04/21/22 0337 166/90 -- -- -- 91 % -- 04/21/22 0242 (!) 190/95 -- 75 -- 93 % -- 04/21/22 0226 (!) 171/126 98.7 ??F (37.1 ??C) 73 20 97 % -- 04/21/22224 -- -- 75 -- 94 % -- 04/21/22219 172/88 -- 68 20 95 % -- 04/21/22214 164/75 -- 70 19 99 % -- 04/21/22209 167/96 -- 68 19 -- -- LMP: No LMP recorded. OB Status: unknown ANESTHESIA PRE-EVALUATION NOTE History of Present Illness: 66 yo F s/p ground level fall presents to [facility] 04/21/22 with Right distal humerus fx, scheduled for ORIF R humerus. Pt denies chest pain, SOB, dizziness. PMH includes HTN, smoking, GERD, OA, depression The patient is a current smoker. The patient did not smoke on the day of the procedure. Physical Exam: Orientation X3 Airway/Mallampati Score: II Mouth Opening Distance: 3 fingerwidths Neck ROM: full TM Distance: > 3 FB Teeth: poor dentition and chipped Heart: normal - S1 S2 Lungs: clear to ausculation bilaterally Abdomen Exam: obese Review of Systems: History of anesthetic complications: No GERD: Yes Recent Chest Pain: No Shortness of Breath: No AICD/Pacemaker: No Renal Disease: No Diagnostic Tests: Chest X-Ray(s) reviewed: Yes. Lab(s) reviewed: Yes. ANESTHESIA PLAN ASA Score: 2 NPO Status: No liquids within 2 hours and No solids for 8 hours Anesthesia Plan: general ETT Nerve Blocks: interscalene. Planned Induction: intravenous Planned Postop Destination: PACU Anesthetic plan was discussed with: patient Anesthetic Plan discussion was: Consented Use of blood products were discussed with: patient Use of blood product discussion was: Consented The patient's procedural Anesthetic Plan was discussed with the certified pathology assistant. Overall additional findings/comments: I have seen and examined America Jungbard and reviewed all relevant medical records. ASA 2 with 0 RCRI Plan for GETA and preop PNB catheter. Mulimodal analgesia and PONV prophylaxis Patient expressed understanding of potential risks of general anesthesia including but not limited to corneal abrasion, visual impairment or visual loss, mouth injury, dental damage, sore throat, hoarseness, esophageal injury, awareness under anesthesia, nerve injury due to positioning, aspiration, pneumonia, stroke, cardiac event, adverse drug reactions and .Anesthesia plan discussed with patient, who is in agreement. Questions solicited and answered. Okay to proceed. Thomas Orta MD 04/21/2022 2:14 PM . BMI, Height, Weight Tobacco History Estimated body mass index is 28.29 kg/m?? as calculated from the following: Height as of this encounter: 1.651 m (5' 5 ). Weight as of this encounter: 77.1 kg (170 lb). Social History Tobacco Use Smoking Status Not on file Smokeless Tobacco Not on file Alcohol History Drug History Social History Substance and Sexual Activity Alcohol Use None Social History Substance and Sexual Activity Drug Use Not on file Outpatient Medications: Inpatient Medications: No outpatient medications have been marked as taking for the 04/21/22 encounter (Hospital Encounter). Current Facility-Administered Medications Medication Dose Last Admin ??? acetaminophen 650 mg 650 mg at 04/21/22 06 ??? odeohmxc-mysjbcvwl-nbtjoqeooez 20 mL ??? docusate sodium 100 mg 100 mg at 04/21/22 075 ??? enoxaparin 40 mg 40 mg at 04/21/22 0752 ??? FLUoxetine 40 mg 40 mg at 04/21/22 0625 ??? HYDROmorphone 0.4 mg ??? HYDROmorphone 0.5 mg 0.5 mg at 04/21/22 0554 ??? ketamine 200 mg ??? lactated ringers New Bag at 04/21/22 0627 ??? losartan 100 mg 100 mg at 04/21/22 075 ??? melatonin 3 mg ??? methocarbamol 750 mg ??? ondansetron (disintegrating) 4 mg Or ??? ondansetron 4 mg ??? oxybutynin CR 24hr 10 mg 10 mg at 04/21/22 075 ??? oxyCODONE (immediate release) 10 mg ??? oxyCODONE (immediate release) 5 mg ??? polyethylene glycol 3350 17 g ??? propofol 200 mg Allergies: No Known Allergies Relevant Problems No relevant active problems Problem List: Patient Active Problem List Diagnosis Date Noted ??? Fall, initial encounter 04/21/2022 Priority: Not Prioritized ??? Other closed displaced fracture of distal end of right humerus, initial encounter 04/21/2022 Priority: Not Prioritized ??? Essential hypertension 04/21/2022 Priority: Not Prioritized Medical History: No past medical history on file. Surgical History: No past surgical history on file. 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 unknown OB History No obstetric history on file. Covid Vaccine: Lab Results: Recent Labs Component Name 04/21/22344 WBC 12.7* RBC 4.22 HCT 37.6 HGB 12.3 PLTCOUNT 253 MCV 89.1 MCH 29.1 MCHC 32.7 MPV 9.9 Recent Labs Component Name 04/21/22344 ABORH A NEG ABSCG NEG Recent Labs Component Name 04/21/22344 POTASSIUM 4.4 CALCIUM 8.6 CO2 23 GLUCOSE 157* BUN 16 CREATININE 0.70 Recent Labs Component Name 04/21/22344 PTT 30.1 PT 13.5 INR 1.0 No results found for requested labs within last 120 days. Recent Labs Result Component Current Result Anion Gap 12 (04/21/2022) eGFR by CKD-EPI >90 (04/21/2022) ING HOME ADMINISTRATOR documented in this encounter Procedure Notes * Chris Fitzgerald MD - 04/21/2022 3:41 PM CSTAssociated Order(s): Peripheral Nerve Block Peripheral Nerve Block Procedure: Peripheral Nerve Block Patient Location: Pre-op Preprocedure Section: Indications: procedure for pain, postop pain management, at patient's request and at surgeon's request. Pre-anesthetic Checklist: Patient identified, IV Checked, Site examined and clear, Risks and benefits discussed, Surgical consent verified, Monitors and equipment, Time-out performed, Informed consent obtained, Pre-op evaluation done, Questions answered/anesthesia questions answered, Allergies reviewed and Removal hand/wrist jewelry Monitors: BP, Pulse Ox and EKG. Patient Condition: awake Patient Position: sitting Patient Sedated? No Procedure Section Laterality: right Block Performed: interscalene Prep: Chloraprep Strerile Field: gloves, mask, hat/cap, patient draped and sterile ultrasound sleeve Skin localized with: lidocaine (XYLOCAINE) 1 % injection - Infiltration 1 mL - 04/21/2022 2:26:00 PM Needle Type: Echogenic insultaed and Erisjose Needle Gauge: 20 Needle Length: 100 mm Catheter? Yes Ultrasound Guided? Yes Technique: in plane Visualization: Preliminary scan performed, Important anatomical structures identified, Needle tip visualized throughout the procedure, Target identified, No intraneural or intravascular puncture occurred, Ultrasound image in chart, Local visualized surrounding nerve on ultrasound and Hydrodissection utilized Injection was made incrementally with constant monitoring and aspirations every 5 mL's Injection Assessment: Slow fractionated injection Block Agents or Additives used? Yes Block agents used: bupivacaine PF (MARCAINE PF) 0.25 % injection - Infiltration 15 mL - 04/21/2022 2:35:00 PM lidocaine (XYLOCAINE) 2 % injection - Infiltration 5 mL - 04/21/2022 2:35:00 PM Procedure Tolerance: tolerated well Assessment: completed Procedure Start Time: 04/21/2022 2:26 PM. Procedure End Time: 04/21/2022 2:40 PM. Procedure Total Time: 14 minutes. Staff Section Anesthesia Provider: Thomas Orta MD, Performed the procedure Provider #1: Chris Fitzgerald MD, Performed the procedure. ING HOME ADMINISTRATOR * Juan Dorsey V., - 04/21/2022 3:15 PM CSTAssociated Order(s): ETT Placement Endotracheal Tube Placement: Patient Location: OR. Intubation Event Date/Time: 04/21/2022 3:03 PM Procedure: intubation (06796). Procedure Section: Sedation: under general anesthesia. Indications for Airway Management: anesthesia Procedure pretreatments used? No Induction: standard IV Patient Position: supine Mask Ventilation: easy. Blade Type: Zachary Blade Size: 3 Laryngoscopy View: grade 2 (partial cords) Intubation Adjuncts: stylet Tube: endotracheal tube Placement: oral Tube type: cuff - inflated Tube Size (MM): 7 Depth of Insertion (CM): 21 Measured From: lips Cuff volume (mL): 6 Cuff Inflated With: air Number of Attempts: 1. Placement Verified By: direct visualization, bilateral breath sounds, chest auscultation and CO2 monitor CXR Findings: ETT in proper place. Tube secured with: adhesive tape. Dentition unchanged? Yes Difficult Airway? No. Procedure Start Time: 04/21/2022 3:03 PM. Staff Section Provider #1: Parag Schroeder DO, Performed the procedure. ING HOME ADMINISTRATOR documented in this encounter Miscellaneous Notes * Addendum Note - Miguel A Frazier MD - 04/22/2022 8:04 AM CST Addendum created 04/22/22803 by Miguel A Frazier MD Clinical Note Signed ING HOME ADMINISTRATOR * Anesthesia Transfer of Care - Petra Yusuf MD - 04/21/2022 7:31 PM NURSING HOME ADMINISTRATOR ANESTHESIA TRANSFER OF CARE NOTE Today's Date: 04/21/2022 Date of : 1955 Patient: America Cloud Procedure(s): OPEN REDUCTION INTERNAL FIXATION (ORIF) RIGHT HUMERUS OSTEOTOMY HUMERUS Surgeon(s): Primary: Shai Greene MD Resident - Assisting: Shai Brady IV, MD; Chris Banks MD Preop Diagnosis: Pre-op Diagnois: * Closed fracture of distal end of right humerus, unspecified fracture morphology, initial encounter [S42.401A] Pre-op Meds (From admission, onward) Start Stop Status Route Frequency Ordered 04/21/22 0645 acetaminophen (Tylenol) tablet 650 mg 04/26 0559 Dispensed PO EVERY 6 HOURS 04/21/22 0602 04/21/22 0601 pcomeeeb-gyqpckwpw-byxilqejzat (Maalox; Mylanta) suspension 20 mL -- Verified PO EVERY 6 HOURS PRN 04/21/22 0602 04/21/22 1435 bupivacaine PF (Marcaine PF) 0.25 % injection 04/21 1435 Completed INFILTRATION 04/21/22 1545 04/21/22 0900 docusate sodium (Colace) capsule 100 mg -- Dispensed PO 2 TIMES DAILY 04/21/22 0602 04/21/22 0900 enoxaparin (Lovenox) injection 40 mg -- Dispensed SC DAILY 04/21/22 0602 04/21/22 0700 FLUoxetine (PROzac) capsule 40 mg -- Dispensed PO 2 TIMES DAILY 04/21/22 0604 04/21/22 0601 HYDROmorphone (Dilaudid) injection 0.4 mg -- Verified IV EVERY 3 HOURS PRN 04/21/22 0602 04/21/22 0115 HYDROmorphone (Dilaudid) injection 0.5 mg 04/21 0109 Completed IV NOW 04/21/22 0100 04/21/22 0447 HYDROmorphone (Dilaudid) injection 0.5 mg -- Dispensed IV EVERY 4 HOURS PRN 04/21/22 0447 04/21/22 0157 ketamine (Ketalar) injection 04/21 0217 Completed IV CODE PRN 04/21/22 0204 04/21/22 0145 ketamine (Ketalar) injection 200 mg 04/21 1344 Dispensed IV NOW 04/21/22 0142 04/21/22 0630 lactated ringers infusion -- Dispensed IV CONTINUOUS 04/21/22 0602 04/21/22 1426 lidocaine (Xylocaine) 1 % injection 04/21 1426 Completed INFILTRATION 04/21/22 1545 04/21/22 1435 lidocaine (Xylocaine) 2 % injection 04/21 1435 Completed INFILTRATION 04/21/22 1545 04/21/22 0500 losartan (Cozaar) tablet 100 mg 04/21 0510 Completed PO NOW 04/21/22 0447 04/21/22 0900 losartan (Cozaar) tablet 100 mg -- Dispensed PO DAILY 04/21/22 0605 04/21/22 06 melatonin tablet 3 mg -- Verified PO AT BEDTIME PRN 04/21/22 0602 04/21/22 0602 methocarbamol (Robaxin) tablet 750 mg -- Verified PO EVERY 6 HOURS PRN 04/21/22 0602 04/21/22 06 ondansetron (disintegrating) (Zofran ODT) tablet 4 mg See Hyperspace for full Linked Orders Report. -- Verified PO EVERY 6 HOURS PRN 04/21/22 0602 04/21/22 06 ondansetron (Zofran) injection 4 mg See Hyperspace for full Linked Orders Report. -- Verified IV EVERY 6 HOURS PRN 04/21/22 0602 04/21/22 0900 oxybutynin CR 24hr (Ditropan-XL) tablet 10 mg -- Dispensed PO DAILY 04/21/22 0604 04/21/22 0601 oxyCODONE (immediate release) (Roxicodone) tablet 10 mg -- Verified PO EVERY 4 HOURS PRN 04/21/22 0602 04/21/22 0600 oxyCODONE (immediate release) (Roxicodone) tablet 5 mg -- Verified PO EVERY 4 HOURS PRN 04/21/22 0602 04/21/22 0601 polyethylene glycol 3350 (Miralax) packet 17 g -- Verified PO DAILY PRN 04/21/22 0602 04/21/22 0157 propofol (Diprivan) injection 04/21 0213 Completed IV CODE CONTINUOUS PRN 04/21/22 0204 04/21/22 0200 propofol (Diprivan) injection 200 mg 04/21 1359 Dispensed IV ONCE 04/21/22 0142 04/21/22 1600 ropivacaine 0.2% On-Q C-bloc Rbjmba-A-Pycj single catheter infusion 2 mg/ml 600 ml 04/25 1559 Dispensed IJ CONTINUOUS 04/21/22 1553 Post-op Diagnosis: * Closed fracture of distal end of right humerus, unspecified fracture morphology, initial encounter [S42.401A] . No Known Allergies Vitals: No data found. Lines, Drains, and Airways Type Details Placement Removal Peripheral IV Date: 04/21/22; Time: 1415; Orientation: Left; Location: Forearm; Placed By: annie HARDWICK; Gauge: 20 Gauge; Locals: None; Tolerance: Well 04/21/22 1415 by Annie Galaviz RN ETT Date: 04/21/22; Time: 1503; Vent: easy mask; Induction: Standard IV; Blade Type: Zachary; Blade Size: 3; Laryngoscopy View: Grade 2 (partial cords); Intubation Adjuncts: Stylet; Tube: Endotracheal Tube; Placement: Oral; Tube Type: Cuffed-inflated; Tube Size(mm): 7 MM; Depth of Insertion: 21 CM; Measured From: lips; Attempts: 1; Cuff Infated: Air; Cuff Vol(mL): 6 mL; Verified By: Direct visualization, Bilateral breath sounds, Chest Auscultation, CO2 Monitor 04/21/22 1503 by Juan Dorsey V.,DO 04/21/22 1922 by Petra Yusuf MD Drain 04/21/22; 1825; Dr Greene; 1; Round; Accordian; Anterior, Right; Shoulder; General [id number] by hPyllis Weiss RN Intraprocedure I/O Totals Intake LR (Lactated ringers) 750.00 mL Total Intake 750 mL Output Urine 150 mL Total Output 150 mL Net Net Volume 600 mL Patient Transfer Location: PACU Transport Airway: spontaneous respirations and supplemental O2 Transport Monitoring: heart rate Complications: None Handoff Given? Yes Checklist or Protocol - The rodriguez handoff elements that must be included in the transfer of care checklist include: 1. Identification of patient. 2. Identification of responsible practitioner (PACU nurse or advanced practitioner). 3. Discussion of pertinent medical history. 4. Discussion of the surgical/procedure course (procedure, reason for surgery, procedure performed). 5. Intraoperative anesthetic management and issue/concerns. 6. Expectations/Plans for the early post-procedure period. 7. Opportunity for questions and acknowledgement of understanding of report from the receiving PACUteam. Petra Yusuf MD ING HOME ADMINISTRATOR documented in this encounter Plan of Treatment Not on file documented as of this encounter Procedures Procedure Name Priority Date/Time Associated Diagnosis Comments PERIPHERAL BLOCK Routine 04/21/2022 3:41 PM NURSING HOME ADMINISTRATOR ENDOTRACHEAL TUBE NOTE Routine 04/21/2022 3:03 PM NURSING HOME ADMINISTRATOR documented in this encounter Results * Peripheral Nerve Block (04/21/2022 3:41 PM NURSING HOME ADMINISTRATOR) Narrative Thomas Orta MD - 04/21/2022 3:41 PM NURSING HOME ADMINISTRATOR Chris Fitzgerald MD ? 04/21/2022 ??3:45 PM [...] 2:26:00 PM Needle Type: ??Echogenic insultaed and Touhy Needle Gauge: ??20 Needle Length: ??100 mm [...] * ETT LINE PERFORMABLE (04/21/2022 3:03 PM NURSING HOME ADMINISTRATOR) Narrative Thomas Orta MD - 04/21/2022 3:03 PM NURSING HOME ADMINISTRATOR Juan Dorsey V., DO ? 04/21/2022 ??3:15 PM Endotracheal Tube Placement: ? Patient Location: OR. Intubation Event Date/Time: ??04/21/2022 3:03 PM Procedure: intubation (73031). Procedure Section: ?? Sedation: under general anesthesia. [...] Thomas Orta MD GENERAL ANESTHESIA O RDERABLES documented in this encounter Visit Diagnoses Not on filedocumented in this encounter Administered Medications Inactive Administered Medications - up to 3 most recent administrations Medication Order MAR Action Action Date Dose Rate Site bupivacaine PF (Marcaine PF) 0.25 % injection Infiltration, Starting on Thu04/21/22 at 1435, Until Thu04/21/22 at 1435, Anesthesia Intra-op $ Given 04/21/2022 2:35 PM NURSING HOME ADMINISTRATOR 15 mL ceFAZolin (Ancef) 2,000 mg in 50 mL IVPB Intravenous, PRN, Starting on Thu04/21/22 at 1519, Until Thu04/21/22 at 1930, Anesthesia Intra-op $ Given 04/21/2022 3:19 PM NURSING HOME ADMINISTRATOR 2 g dexAMETHasone Sod Phosphate PF injection Intravenous, PRN, Starting on Thu04/21/22 at 1508, Until Thu04/21/22 at 1930, Anesthesia Intra-op $ Given 04/21/2022 3:08 PM NURSING HOME ADMINISTRATOR 4 mg fentaNYL (PF) (Sublimaze) injection Intravenous, PRN, Starting on Thu04/21/22 at 1859, Until Thu04/21/22 at 1930, Anesthesia Intra-op $ Given 04/21/2022 7:01 PM NURSING HOME ADMINISTRATOR 25 mcg $ Given 04/21/2022 6:59 PM NURSING HOME ADMINISTRATOR 25 mcg $ Given 04/21/2022 2:25 PM NURSING HOME ADMINISTRATOR 100 mcg lactated ringers infusion Intravenous, CONTINUOUS PRN, Starting on Thu04/21/22 at 1453, Until Thu04/21/22 at 1930, Anesthesia Intra-op $ New Bag/Syringe 04/21/2022 2:53 PM NURSING HOME ADMINISTRATOR lidocaine (Xylocaine) 1 % injection Infiltration, Starting on Thu04/21/22 at 1426, Until Thu04/21/22 at 1426, Anesthesia Intra-op $ Given 04/21/2022 2:26 PM NURSING HOME ADMINISTRATOR 1 mL lidocaine (Xylocaine) 2 % injection Infiltration, Starting on Thu04/21/22 at 1435, Until Thu04/21/22 at 1435, Anesthesia Intra-op $ Given 04/21/2022 2:35 PM NURSING HOME ADMINISTRATOR 5 mL lidocaine HCl (PF) (Xylocaine MPF) 2 % injection Intravenous, PRN, Starting on Thu04/21/22 at 1500, Until Thu04/21/22 at 1930, Anesthesia Intra-op $ Given 04/21/2022 3:00 PM NURSING HOME ADMINISTRATOR 80 mg midazolam (Versed) injection Intravenous, PRN, Starting on Thu04/21/22 at 1425, Until Thu04/21/22 at 1930, Anesthesia Intra-op $ Given 04/21/2022 2:25 PM NURSING HOME ADMINISTRATOR 2 mg ondansetron (Zofran) injection Intravenous, PRN, Starting on Thu04/21/22 at 1852, Until Thu04/21/22 at 1930, Anesthesia Intra-op $ Given 04/21/2022 6:52 PM NURSING HOME ADMINISTRATOR 4 mg phenylephrine 100 mcg/mL injection Intravenous, PRN, Starting on Thu04/21/22 at 1741, Until Thu04/21/22 at 1930, Anesthesia Intra-op $ Given 04/21/2022 5:47 PM NURSING HOME ADMINISTRATOR 200 mcg $ Given 04/21/2022 5:44 PM NURSING HOME ADMINISTRATOR 100 mcg $ Given 04/21/2022 5:41 PM NURSING HOME ADMINISTRATOR 100 mcg propofol (Diprivan) injection Intravenous, PRN, Starting on Thu04/21/22 at 1500, Until Thu04/21/22 at 1930, Anesthesia Intra-op $ Given 04/21/2022 3:03 PM NURSING HOME ADMINISTRATOR 50 mg $ Given 04/21/2022 3:00 PM NURSING HOME ADMINISTRATOR 100 mg rocuronium (Zemuron) injection Intravenous, PRN, Starting on Thu04/21/22 at 1501, Until Thu04/21/22 at 1930, Anesthesia Intra-op $ Given 04/21/2022 6:20 PM NURSING HOME ADMINISTRATOR 10 mg $ Given 04/21/2022 5:11 PM NURSING HOME ADMINISTRATOR 20 mg $ Given 04/21/2022 3:01 PM NURSING HOME ADMINISTRATOR 50 mg sugammadex (Bridion) injection Intravenous, PRN, Starting on Thu04/21/22 at 1920, Until Thu04/21/22 at 1930, Anesthesia Intra-op $ Given 04/21/2022 7:20 PM NURSING HOME ADMINISTRATOR 200 mg documented in this encounter Care Teams Area Plant Manager Relationship Specialty Start Date End Date Dimitri Parry MD PCP - General Internal Medicine 04/21/22 documented as of this encounter
--- OUTSIDE RECORDS SUMMARY | 2024-03-24 23:45 | XMS_ITS | Encounter Summary ---
Author Organization [facility] Address [address] [place] [address] Care Team Providers Care Bushing And Broach Operator Name Role Phone Dimitri Parry MD Primary Care Provider [phone] Encounter Details Date Type Department Care Team (Late st Contact Info) Description 06/25/2022 10:07 AM CDT - 06/25/2022 11:59 PM CDT Hospital Encounter [facility] DIAGNOSTIC RAD CSM [address] [facility]. [facility] [place] [address] Shai Greene MD [facility] [place] [address] Discharge Disposition: Home or Self Care Social [...] fluticasone propionate (Flonase) 50 MCG/ACT nasal spray [place] 1 (one) spray into the nose once [...] XR ELBOW RIGHT 3VW OR MORE Routine 06/25/2022 10:11 AM CDT Other closed displaced fracture [...] DATE/TIME OF EXAM: ??06/25/2022 10:11 AM, LOCATION ??[facility] INDICATION: S42.491D: Other closed displaced fracture [...] MORE, DATE/TIME OF EXAM: 0:11 AM, LOCATION [facility] INDICATION: S42.491D: Other closed displaced fracture [...] encounter documented in this encounter Care Teams Bushing And Broach Operator Relationship Specialty Start Date End Date Dimitri Parry MD PCP - General Internal Medicine 04/21/22 documented as of this encounter
--- OUTSIDE RECORDS SUMMARY | 2024-03-24 23:45 | XMS_ITS | Encounter Summary ---
Author Organization [facility] Address [address] [place] [address] Care Team Providers Care Remote Sensing Research Scientist Name Role Phone Dimitri Parry MD Primary Care Provider [phone] Encounter Details Date Type Department Care Team (Late st Contact Info) Description 05/26/2022 Orders Only [facility] - Orthopedics [address] [place] [address], [place] [address] Shai Greene MD [address] [place] [address] OF ORTHOPEDIC SURGERY PAINTER, [place] [id number] Other closed displaced fracture of distal end [...] RIGHT 3VW OR MORE (05/28/2022 10:10 AM AIRFIELD OPERATIONS SPECIALIST) Anatomical Region Laterality Modality Upper Extremity Radiographic Davida ging 05/28/2022 10:1 7 AM AIRFIELD OPERATIONS SPECIALIST Impressions 05/28/2022 10:38 AM AIRFIELD OPERATIONS SPECIALIST IMPRESSION: Internal of humeral supracondylar fracture and proximal ulnar osteotomy, unchanged in alignment. Report dictated by Myron Perry MD (resident advisor). I, Benjamin Barillas MD have personally reviewed and interpreted this examination/study. > Interpreting Provider: Benjamin Barillas MD on 05/28/2022 10:38 AM Narrative 05/28/2022 10:38 AM AIRFIELD OPERATIONS SPECIALIST PROCEDURE: ??XR ELBOW RIGHT 3VW OR MORE, DATE/TIME OF EXAM: ??05/28/2022 9:48 AM, LOCATION ??[facility] INDICATION: S42.491D: Other closed displaced fracture [...] MORE, DATE/TIME OF EXAM: 39:48 AM, LOCATION [facility] INDICATION: S42.491D: Other closed displaced fracture [...] alignment. Report dictated by Myron Perry MD (resident advisor). I, Benjamin Barillas MD have personally reviewed and interpreted this examination/study. > Interpreting Provider: Benjamin Barillas MD on 05/28/2022 10:38 AM Shai Greene MD DIAGNOSTIC IMAGING [facility] [place] documented in this encounter Visit Diagnoses Diagnosis Other closed displaced fracture of distal end of right humerus with routine healing, subsequent encounter- Primary Other closed displaced fracture of distal end of right humerus with routine healing, subsequent encounter documented in this encounter Care Teams Remote Sensing Research Scientist Relationship Specialty Start Date End Date Dimitri Parry MD PCP - General Internal Medicine 04/21/22 documented as of this encounter
--- OUTSIDE RECORDS SUMMARY | 2024-03-24 23:45 | XMS_ITS | Encounter Summary ---
Author Organization [facility] Address [address] [place] [address] Care Team Providers Care Journeyman Electrician Name Role Phone Dimitri Parry MD Primary Care Provider [phone] Encounter Details Date Type Department Care Team (Late st Contact Info) Description 04/30/2022 9:25 AM CAD DETAILER - 04/30/2022 11:59 PM [facility] Hospital Encounter [facility] DIAGNOSTIC RAD CSM [address] [facility]. [place] [address] Shai Greene MD [facility] [place] [address] Discharge Disposition: Home or Self Care Social [...] fluticasone propionate (Flonase) 50 MCG/ACT nasal spray [place] 1 (one) spray into the nose once [...] 05/03/2022 oxyCODONE, immediate release, (Roxicodone) 5 MG tabletIndications:Fa ll, initial encounter Take 1 (one) tablet by mouth every 4 hours as needed 40 tablet 04/23/2022 06/25/2022 polyethylene glycol 3350 (Miralax) 17 g packetIndications:Fa ll, initial encounter Take 17 (seventeen) g by mouth once daily as needed for Constipation 04/23/2022 05/28/2022 documented as of this encounter Plan of Treatment Not on file documented as of this encounter Procedures Procedure Name Priority Date/Time Associated Diagnosis Comments XR ELBOW RIGHT 3VW OR MORE Routine 04/30/2022 9:37 AM CAD DETAILER Other closed displaced fracture of distal end of right humerus, initial encounter documented in this encounter Results * XR ELBOW RIGHT 3VW OR MORE (04/30/2022 9:37 AM CAD DETAILER) Anatomical Region Laterality Modality Upper Extremity Radiographic Davida ging 04/30/2022 9:55 AM CAD DETAILER Impressions 04/30/2022 10:09 AM CAD DETAILER IMPRESSION: Unchanged osseous alignment of the internally fixated distal humerus fracture and proximal ulnar osteotomy. Report dictated by Marilyn Cox MD (optometrist president/practice owner). I, Benjamin Barillas MD have personally reviewed and interpreted this examination/study. > Interpreting Provider: Benjamin Barillas MD on 04/30/2022 10:09 AM Narrative 04/30/2022 10:09 AM CAD DETAILER EXAMINATION: XR ELBOW RIGHT 3VW OR MORE DATE/TIME OF EXAM: ??04/30/2022 9:38 AM, LOCATION ??[facility] HISTORY: S42.491A: Other closed displaced fracture [...] DATE/TIME OF EXAM: 04/30/2022 9:38 AM, LOCATION [facility] HISTORY: S42.491A: Other closed displaced fracture [...] osteotomy. Report dictated by Marilyn Cox MD (optometrist president/practice owner). I, Benjamin Barillas MD have personally reviewed and interpreted this examination/study. > Interpreting Provider: Benjamin Barillas MD on 04/30/2022 10:09 AM Shai Greene MD DIAGNOSTIC IMAGING [facility] [place] documented in this encounter Visit Diagnoses Diagnosis Other closed displaced fracture of distal end of right humerus, initial encounter documented in this encounter Care Teams Journeyman Electrician Relationship Specialty Start Date End Date Dimitri Parry MD PCP - General Internal Medicine 04/21/22 documented as of this encounter
--- OUTSIDE RECORDS SUMMARY | 2024-03-24 23:45 | XMS_ITS | CONTINUITY OF CARE DOCUMENT ---
Author Name adele angulo Address Unknown Organization [facility] Address [id number] [place] [address] [address] [place] [address] Phone [phone] Care Team Providers Care Certified Retinal Angiographer Name Role Phone adele angulo Unavailable Unavailable
--- OUTSIDE RECORDS SUMMARY | 2024-03-24 23:46 | XMS_ITS | Continuity of Care Document ---
Author Organization [facility], [facility] [place] Address [address] [place] [address] Assessment Encounter Date Assessment Date Assessment LastModified by Organization Details LastModified Time 03/08/2024 03/08/2024 This note is dictated and transcribed by [employer]. [employer]otype Keyboard Operator variances may occur. Despite proofreading, typographical errors may occur. Occasional wrong-word or 'wlzwl-s-ocho' substitutions may have occurred due to the inherent limitations of voice recording. Read the chart carefully and recognize, using context, where substitutions have occurred. [email or web address] Not available 03/09/2024 13:57:56 Plan of Treatment Reminders Order Date Submit Date Provider Last Modified By Organization Details Last Modified Time Details Appointments Establish ed Patient 15 2024 04:00P Enrique Neil DPM Not available Not available Not available Lab None recorded. Referral None recorded. Procedures None recorded. Surgeries None recorded. Imaging None recorded. Medication Orders None recorded. Patient TargetsNo targets recorded. Patient InstructionsNo instructions recorded. Reason for Referral None Reported. Problems Name Problem SNOMED Code Status Onset Date Resolution Date Notes Provider Name and Address Organization Details Recorded Time Type 2 diabetes mellitus without complicati on 348313207 Active 2022 Not Available [facility] 3 07:38:14 Gastroesop hageal reflux disease 804132107 Active 2022 EMERY Kruger, [facility] 3 12:43:02 Gastroesop hageal reflux disease without esophagiti s 446622353 Active 2022 Dimitri Parry MD [address] [place] [address], [facility] [address], [place], [address] , [facility] 3 11:13:59 Dystrophia unguium 52528960 Active 2023 Eben Neil DPM [address], [place], [address] , [facility] 4 13:38:44 Pain in toe 320168501 Active 2023 Eben Neil DPM [address], [address], [place], [address] , [facility] 4 13:38:50 Pain in lower limb 85746400 Active Not Available [facility] 3 07:38:14 Benign essential hypertensi on 5154522 Active Not Available [facility] 3 07:38:14 Chronic obstructiv e pulmonary disease 13575349 Active 2017 Not Available [facility] 3 07:38:14 Heartburn 36933027 Active 2017 Not Available [facility] 3 07:38:14 Nausea and vomiting 21304039 Active 2021 Not Available [facility] 3 07:38:14 Anxiety disorder 918942336 Active 2017 Not Available [facility] 3 07:38:14 Abdominal pain 77671728 Active Not Available [facility] 3 07:38:14 Infection of sebaceous cyst 004345984 Active Not Available [facility] 3 07:38:14 Low back pain 806497930 Active Not Available [facility] 3 07:38:14 Pain of toe of right foot 5555158289571 01 Active 2019 Not Available [facility] 3 07:38:14 Dehydratio n 66292142 Active 2021 Not Available [facility] 3 07:38:14 Diverticul ar disease of colon 856064592 Active Not Available [facility] 3 07:38:14 Onychomyco sis of toenails 660718251 Active 2018 Not Available [facility] 3 07:38:14 Type 2 diabetes mellitus 13824121 Active 2021 Not Available [facility] 3 07:38:14 Uncontroll ed type 2 diabetes mellitus 692297561 Active 2021 Not Available [facility] 3 07:38:14 Laryngitis 67475647 Active Not Available [facility] 3 07:38:14 Anxiety 78273747 Active 2017 Not Available [facility] 3 07:38:14 Cough 07409513 Active Not Available [facility] 3 07:38:14 Upper respirator y infection 82170902 Active Not Available [facility] 3 07:38:14 Essential hypertensi on 95473410 Active 2021 Not Available [facility] 3 07:38:14 Hyperglyce krysten 35936651 Active 2021 Not Available [facility] 3 07:38:14 Notes:Some problems listed i n Document: #[id number] could not be added to this patient's chart. Please review this document and add these problems to the patient's chart manually as needed. Problem Notes None recorded. Procedures Surgical History Date Name Laterality Status Provider Name and Address Organization Details Recorded Time 03/08/20 24 Nail Debridement completed Eben Neil DPM [address], [address], [place], [address], [facility] 03/09/2024 13:57:41 12/08/19 24 Nail Debridement completed Eben Neil DPM [address], [place], [address], [facility] 12/08/2023 17:25:56 09/08/19 24 Nail Debridement completed Eben Neil DPM [address], [place], [address], [facility] 09/10/2023 13:38:11 01/01/20 23 Medicare Wellness CPT Code, subsequent completed EMERY Cancino [facility] 12/31/2022 11:13:05 01/30/20 23 repair of elbow completed Not Available [facility] 05/21/2022 03:18:52 07/15/19 19 Exc tr-ext b9+julia >4.0 cm completed Not Available [facility] 05/21/2022 03:18:52 07/30/19 18 Injection for bladder x-ray completed Not Available [facility] 05/21/2022 03:18:52 07/30/19 18 Cystoscopy w/biopsy(s) completed Not Available [facility] 05/21/2022 03:18:52 11/20/19 17 Colon Surgery completed Not Available [facility] 05/21/2022 03:18:52 other completed Not Available [facility] 05/21/2022 03:18:52 revision of colostomy completed Not Available [facility] 05/21/2022 03:18:52 Shoulder completed Not Available [facility] 05/21/2022 03:18:52 Hysterectomy completed Not Available [facility] 05/21/2022 03:18:52 Cholecystectomy completed Not Available [facility] 05/21/2022 03:18:52 Imaging Results None recorded. Procedure Notes None recorded. Medical Equipment None Reported. Allergies No known drug allergies Medications Name Sig Start Date Stop Date Status Note LastModified by Organization Details LastModified Time losartan 50 mg tablet TAKE 1 TABLET BY MOUTH EVERY DAY 04/11 completed Not Available Not Available Not Available fluoxetin e 40 mg capsule TAKE 2 CAPSULES BY MOUTH EVERY DAY active Not Available Not Available No t Available amoxicill in 500 mg capsule 03/13 completed Not Available Not Available Not Available metformin 500 mg tablet TAKE 1 TABLET BY MOUTH EVERY DAY 04/11 completed Not Available Not Available Not Available bupropion HCl SR 150 mg tablet,12 hr sustained -release TAKE 1 TABLET BY MOUTH TWICE A DAY active Not Available Not Available No t Available prednison e 10 mg tablet take by mouth - 3 for 2 days, 2 for 2 days, 1 for 2 days 04/18 completed Not Available Not Available Not Available Stomahesi ve Paste 12/10 completed Not Available Not Available Not Available doxycycli ne hyclate 100 mg capsule Take 1 capsule twice a day by oral route for 10 days. active Not Available Not Available No t Available clindamyc in HCl 300 mg capsule 12/10 completed Not Available Not Available Not Available atorvasta tin 10 mg tablet TAKE 1 TABLET BY MOUTH EVERY DAY active Not Available Not Available No t Available oxybutyni n chloride ER 10 mg tablet,ex tended release 24 hr TAKE 1 TABLET BY MOUTH EVERY DAY active Not Available Not Available No t Available azithromy isabelle 250 mg tablet Take 1 dose pk by oral route as directed . 09/07 completed Not Available Not Available Not Available ibuprofen 800 mg tablet Take 1 tablet 3 times a day by oral route. active Not Available Not Available No t Available ampicilli n 500 mg capsule Take 1 capsule 3 times a day by oral route for 7 days. active Not Available Not Available No t Available hydrocodo ne 5 mg-acetam inophen 325 mg tablet 12/10 completed Not Available Not Available Not Available ondansetr on HCl 8 mg tablet 12/10 completed Not Available Not Available Not Available ondansetr on HCl 4 mg tablet TAKE 1 TABLET BY MOUTH THREE TIMES A DAY NEEDED 09/07 completed Not Available Not Available Not Available prednison e 20 mg tablet Take 2 tablets every day by oral route for 5 days. active Not Available Not Available No t Available permethri n 5 % topical cream APPLY (THOROUG HLY MASSAGE INTO SKIN FROM HEAD TO SOLES OF FEET) BY TOPICAL ROUTE ONCE LEAVE ON FOR 8-14 HR, THEN REMOVE BY THOROUGH WASHING 12/10 completed Not Available Not Available Not Available metronida zole 500 mg tablet TAKE ONE TABLET BY MOUTH EVERY 12 HOURS FOR 7 DAYS active Not Available Not Available No t Available acetamino phen 300 mg-codein e 30 mg tablet 12/13 completed Not Available Not Available Not Available ciproflox acin 250 mg tablet Take 1 tablet every 12 hours by oral route for 7 days. 04/13 completed Not Available Not Available Not Available levofloxa isabelle 250 mg tablet 12/15 completed Not Available Not Available Not Available ciproflox acin 500 mg tablet Take 1 tablet every 12 hours by oral route for 7 days. 06/30 completed Not Available Not Available Not Available sulfameth oxazole 800 mg-trimet hoprim 160 mg tablet TAKE 1 TABLET BY MOUTH TWICE A DAY active Not Available Not Available No t Available amoxicill in 500 mg tablet Take 1 tablet 3 times a day by oral route for 7 days. 03/26 completed Not Available Not Available Not Available ketorolac 10 mg tablet TAKE 1 TABLET BY MOUTH EVERY 4 6 HOURS NEEDED FOR UP TO 5 DAYS active Not Available Not Available No t Available oxycodone -acetamin ophen 5 mg-325 mg tablet 12/15 completed Not Available Not Available Not Available dicyclomi ne 20 mg tablet 09/12 completed Not Available Not Available Not Available phenazopy ridine 100 mg tablet Take 1 tablet 3 times a day by oral route for 5 days. 09/21 completed Not Available Not Available Not Available pantopraz ole 40 mg tablet,de layed release TAKE 1 TABLET BY MOUTH EVERY DAY active Not Available Not Available No t Available fluoxetin e 20 mg tablet Take 1 tablet every day by oral route. active Not Available Not Available No t Available losartan 25 mg tablet TAKE 1 TABLET BY MOUTH EVERY DAY 08/05 completed changed to 50mg at visit 08/06/[address] Parry Not Available Not Available Not Available fluoxetin e 10 mg capsule take one tablet qd 04/19 completed Not Available Not Available Not Available monteluka st 10 mg tablet TAKE 1 TABLET BY MOUTH EVERY DAY active Not Available Not Available No t Available lorazepam 1 mg tablet TAKE 1 TABLET BY MOUTH TWICE A DAY NEEDED 04/11 completed Not Available Not Available Not Available levofloxa isabelle 500 mg tablet Take 1 tablet every day by oral route for 10 days. 08/14 completed Not Available Not Available Not Available Septra DS 800 mg-160 mg tablet 02/02 completed Not Available Not Available Not Available methylpre dnisolone 4 mg tablets in a dose pack take decreasi ng doses as directed 09/21 completed Not Available Not Available Not Available neomycin 500 mg tablet 04/15 completed Not Available Not Available Not Available albuterol sulfate HFA 90 mcg/actua tion aerosol inhaler INHALE 2 PUFFS EVERY 4 HOURS BY INHALATI ON ROUTE NEEDED active Not Available Not Available No t Available oxybutyni n chloride 5 mg tablet TAKE ONE TABLET BY MOUTH TWICE DAILY 05/26 completed Not Available Not Available Not Available ondansetr on 4 mg disintegr ating tablet Place 2 tablets 3 times a day by translin gual route as needed. active Not Available Not Available No t Available losartan 100 mg tablet TAKE 1 TABLET BY MOUTH EVERY DAY active Not Available Not Available No t Available fluoxetin e 20 mg capsule TAKE ONE CAPSULE BY MOUTH ONCE DAILY 09/12 completed Not Available Not Available Not Available fluticaso ne propionat e 50 mcg/actua tion nasal spray,[place] [employer] [place] 2 sprays every day by intranas al route. 04/11 completed Not Available Not Available Not Available metformin ER 500 mg tablet,ex tended release 24 hr TAKE 1 TABLET BY MOUTH EVERYDAY AT BEDTIME active Not Available Not Available No t Available Stomahesi ve Protectiv e Powder 12/10 completed Not Available Not Available Not Available diazepam 5 mg tablet 12/10 completed Not Available Not Available Not Available metoclopr amide 10 mg tablet TAKE ONE TABLET BY MOUTH THREE TIMES DAILY 08/14 completed Not Available Not Available Not Available amoxicill in 875 mg-potass ium clavulana te 125 mg tablet Take 1 tablet every 12 hours by oral route for 7 days. 06/30 completed Not Available Not Available Not Available oxycodone 5 mg tablet 11/13 completed Not Available Not Available Not Available enoxapari n 40 mg/0.4 mL subcutane ous syringe active Not Available Not Available Not Available cyclobenz aprine 5 mg tablet 09/07 completed Not Available Not Available Not Available nitrofura ntoin monohydra te/macroc rystals 100 mg capsule TAKE 1 CAPSULE BY MOUTH EVERY DAY 12/10 completed Not Available Not Available Not Available calcium active Not Available Not Avail able Not Available active Not Available Not Avai lable Not Available multivita min 04/11 completed Not Available Not Available Not Available Acid Controlle r 2016 active Not Available Not Available Not Avai lable colostomy bag, non-steri le 2 3/4 (12 ) 12/10 completed colostom y supplies Not Available Not Available Not Available Januvia 100 mg tablet 04/15 completed Not Available Not Available Not Available peg 3350 240 gram-elec trolytes 22.72 gram-6.72 g-5.84 g powdr for soln 04/13 completed Not Available Not Available Not Available PEG-3350 with flavor packs 420 gram oral solution 08/09 completed Not Available Not Available Not Available GaviLyte- G 236 gram-22.7 4 gram-6.74 gram-5.86 gram oral solution 12/15 completed Not Available Not Available Not Available Suprep Bowel Prep Kit 17.5 gram-3.13 gram-1.6 gram oral solution 12/10 completed Not Available Not Available Not Available Chantix Continuin g Month Box 1 mg tablet Take 1 tablet twice a day by oral route. active Not Available Not Available No t Available Chantix Starting Month Box 0.5 mg (11)-1 mg (42) tablets in dose pack Take 1 startr pk as needed by oral route as directed . 09/21 completed Not Available Not Available Not Available Vitamin D2 08/18 completed Not Available Not Available Not Available Bevespi Aerospher e 9 mcg-4.8 mcg HFA aerosol inhaler Inhale 2 puffs twice a day by inhalati on route. active Not Available Not Available No t Available Breztri Aerospher e 160 mcg-9mcg- 4.8mcg/ac tuation HFA aerosol inhaler INHALE 2 PUFFS TWICE A DAY active Not Available Not Available No t Available Klayesta 100,000 unit/gram topical powder APPLY TO AFFECTED AREA TWICE A DAY active Not Available Not Available No t Available Vitals Date Recorded Body height Body mass index (BMI) Body weight Heart rate Respiratory rate Oxygen saturation Oxygen saturation in Arterial blood by Pulse oximetry Systolic blood pressure Diastolic blood pressure Provider Name and Address Organization Details Last Updated DateTime 4 162.56 cm 27.3 kg/m2 17267.1 9 g 79 /min 14 /min 98 % 98 % 167 mm[Hg] 94 mm[Hg] Rad[facility] 4 16:41:09 Social History Question Answer Notes LastModified by Organizat ion Details LastModified Time Tobacco Smoking Status Current Every Day Smoker Not Available [facility] 05/21/2022 03:09:16 Do You Have An Advance Directive? No MIGRATION.[id number] Information not available 05/21/2022 What Is Your Level Of Alcohol Consumption? Occasional MIGRATION.64746 [id number] Information not available 05/21/2022 Are You Blind Or Do You Have Difficulty Seeing? No MIGRATION.97354 06280 Information not available 05/21/2022 What Is Your Level Of Caffeine Consumption? Heavy MIGRATION.71263 16978 Information not available 05/21/2022 How Much Tobacco Do You Chew? None MIGRATION.91158 [id number] Information not available 05/21/2022 In The 14 Days Before Symptom Onset, Have You Had Close Contact With A Laboratory-confi rmed COVID-19 While That Case Was Ill? No MIGRATION.52290 05154 Information not available 05/21/2022 In The 14 Days Before Symptom Onset, Have You Had Close Contact With A Person Who Is Under Investigation For COVID-19 While That Person Was Ill? No MIGRATION.88960 36463 Information not available 05/21/2022 Are You Deaf Or Do You Have Serious Difficulty Hearing? No MIGRATION.65552 38684 Information not available 05/21/2022 What Type Of Diet Are You Following? REGULAR MIGRATION.79520 39869 Information not available 05/21/2022 Which Illicit Or Recreational Drugs Have You Used? None MIGRATION.31798 57835 Information not available 05/21/2022 Do You Or Have You Ever Used E-cigarettes Or Vape? Never Used Electronic Cigarettes MIGRATION.62519 93713 Information not available 05/21/2022 What Is The Highest Grade Or Level Of School You Have Completed Or The Highest Degree You Have Received? 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 No MIGRATION.02586 63859 Information not available 05/21/2022 What Is The Fluoride Status Of Your Home? Unknown MIGRATION.07054 35148 Information not available 05/21/2022 Are There Any Guns Present In Your Home? Yes MIGRATION.15948 71529 Information not available 05/21/2022 Do You Use Insect Repellent Routinely? No MIGRATION.07130 30776 Information not available 05/21/2022 Where Do You Live? [facility] MIGRATION.71263 04660 Information not available 05/21/2022 Do You Have A Medical Power Of Shoe Salesperson? No MIGRATION.30663 31814 Information not available 05/21/2022 What Was The Date Of Your Most Recent Tobacco Screening? 01/21/2023 [email or web address] Information not available 01/21/2023 Have You Ever Been Counseled For Unhealthy Alcohol Use? No MIGRATION.85121 49678 Information not available 05/21/2022 Do You Have Any Pets? No MIGRATION.57884 99335 Information not available 05/21/2022 What Is Your Relationship Status? MIGRATION.33104 71811 Information not available 05/21/2022 Do You Use Your Seat Belt Or Car Seat Routinely? Yes MIGRATION.96320 77971 Information not available 05/21/2022 Do You Have Smoke And Carbon Monoxide Detectors In Your Home? Yes MIGRATION.24184 56818 Information not available 05/21/2022 At What Age Did You Start Smoking Tobacco? 31 MIGRATION.66641 09023 Information not available 05/21/2022 Are You Passively Exposed To Smoke? Yes MIGRATION.81271 01646 Information not available 05/21/2022 Do You Or Have You Ever Used Smokeless Tobacco? Never Used Smokeless Tobacco MIGRATION.68100 75363 Information not available 05/21/2022 Are There Any Smokers In Your House? Yes MIGRATION.23935 91436 Information not available 05/21/2022 How Much Tobacco Do You Smoke? 0.5 PPD MIGRATION.72977 35823 Information not available 05/21/2022 What Types Of Sporting Activities Do You Participate In? None MIGRATION.98689 95824 Information not available 05/21/2022 Do You Feel Stressed (tense, Restless, Nervous, Or Anxious, Or Unable To Sleep At Night)? [id number] MIGRATION.01191 48264 Information not available 05/21/2022 Do You Use Any Illicit Or Recreational Drugs? No MIGRATION.75403 42939 Information not available 05/21/2022 Do You Use Sunscreen Routinely? No MIGRATION.28523 12598 Information not available 05/21/2022 Have You Recently Traveled Abroad? No MIGRATION.52084 27591 Information not available 05/21/2022 Do You Have Any Dietary Restrictions? No MIGRATION.33185 61735 Information not available 05/21/2022 Do You Or Have You Ever Used Any Other Forms Of Tobacco Or Nicotine? No MIGRATION.85148 29634 Information not available 05/21/2022 Sex: Female Functional Status Question Answer Note LastModified by Organizat ion Details LastModified Time Do you have difficulty walking or climbing stairs? No MIGRATION.[id number] 026 Information not available 05/21/2022 Do you have transportation difficulties? No MIGRATION.2170324 026 Information not available 05/21/2022 Are you able to walk? YESWOREST MIGRATION.8151160 026 Information not available 05/21/2022 Do you have difficulty doing errands alone? No MIGRATION.1382802 026 Information not available 05/21/2022 Are you able to care for yourself? Yes MIGRATION.4699888 026 Information not available 05/21/2022 Do you have difficulty dressing or bathing? No MIGRATION.4320976 026 Information not available 05/21/2022 What is your exercise level? Occasional MIGRATION.7800369 026 Information not available 05/21/2022 Mental Status Question Answer Note LastModified by Organizat ion Details LastModified Time Do you have difficulty concentrating, remembering or making decisions? No MIGRATION.[id number] 6 Information not available 05/21/2022 Family History Relationship Description Onset Age of this Age Resolved Age Notes LastModified by Organization Details LastModified Time Father Malignant neoplastic disease [id number] Not available 05/21/2022 03:18:57 Father Hypertensive disorder MIGRATION.528 [id number] Not available 05/21/2022 03:18:57 Father Carcinoma in situ of breast MIGRATION.413 [id number] Not available 05/21/2022 03:18:57 Mother Hypertensive disorder MIGRATION.528 [id number] Not available 05/21/2022 03:18:57 Medical History Condition Response NERVE DISEASE N BLINDNESS N RHEUMATIC FEVER N KIDNEY STONES N BLADDER PROBLEMS N MRSA N OTHER # 1 N POLIO N LUNG DISEASE/DISORDER N RADIATION / CHEMOTHERAPY N COPD Y Other # 2 N BLOOD DISEASES N SURGERY N EAR OR HEARING PROBLEMS N MUMPS N BOWEL PROBLEMS Y DEPRESSION (INCLUDING POST ) N STROKE/TIA N ULCERS N BENIGN PROSTATIC HYPERPLASIA N MEASLES N MYOCARDIAL INFARCTION N OBESITY N GERD/NAUSEA N ANEURYSM N URINARY/BLADDER/KIDNEY PROBLEMS N CORONARY ARTERY DISEASE (CAD) N ADDICTION CONCERNS N Impotence N ENDOMETRIOSIS N USE OF BLOOD THINNERS N SKIN PROBLEMS N GASTROINTESTINAL DISORDER N PERIPHERAL VASCULAR DISEASE N MUSCLE,JOINT OR BONE PROBLEMS N GASTROINTESTINAL BLEEDING N BLOOD CLOTS N ASTHMA N CATARACTS N ERECTILE DYSFUNCTION N VARICOSITIES N GI PROBLEMS N Low Testosterone N INFERTILITY N AIDS/HIV N CHEMOTHERAPY / RADIATION N LIVER DISEASE N MALE HYPOGONADISM N HYPERTENSION N Deficiency N ANXIETY DISORDER Y BLOOD TRANSFUSION N ANEMIA/BLOOD DISORDER N CHRONIC EAR INFECTIONS N BRONCHITIS N TUBERCULOSIS N GLAUCOMA N FOOT PROBLEM N DIVERTICULITIS N SLEEP APNEA N CHICKENPOX N INFECTIOUS DISEASE N PROSTATE N HEART ARRHYTHMIA N INSOMNIA N HIGH CHOLESTEROL / HYPERLIPIDEMIA Y EYE PROBLEMS N HYPERTHYROIDISM N NEUROLOGICAL PROBLEMS N EDEMA N CHRONIC PAIN SYNDROME N HYPOTHYROIDISM N CONSTIPATION N CAROTID BLOCKAGE N BACK / NECK PROBLEMS N HAVE YOU BEEN HOSPITALIZED OR SEEN IN [facility] ER IN THE PAST YEAR ? N ATHEROSCLEROSIS N BREAST PROBLEMS N DIALYSIS N ECZEMA N OSTEOPOROSIS N ARTHRITIS N APPENDICITIS N DIABETES, TYPE N BAD TEETH N ENT N HEARTBURN / REFLUX Y AUTISM SPECTRUM DISORDER (ASD) N HEPATITIS / LIVER DISEASE N GOUT N SLEEP DISORDER N ALZHEIMER'S DISEASE N Brain Problems N DEMENTIA N HERPES N SEIZURES/EPILEPSY N HEADACHES/MIGRAINES N VASCULAR DISEASE N PACEMAKER N Blood Disorder N DIZZINESS N HEART DISEASE/HEART PROBLEMS N KIDNEY DISEASE N MULTIPLE SCLEROSIS N CANCER: SPECIFY N CARDIAC ARRHYTHMIA N ATRIAL FIBRILLATION N Gall Stones N PULMONARY EMBOLISM N AUTOIMMUNE DISEASE N Gynecological HistoryNo gynecological history recorded. Obstetrics History GPAL:G 0 P 0 0 0 0 Immunizations Vaccine Type Date Status Note Provider Nam e and Address Organization Details Recorded Time Influenza, split virus, quadrivalent, preservative 1 completed Not Available [facility] 11/14/2022 07:38:15 COVID-19 vaccine, vector-nr, rS-Ad26, PF, 0.5 mL 1 completed Not Available [facility] 11/14/2022 07:38:15 Influenza, high-dose, quadrivalent, PF 3 completed Not Available [facility] 11/14/2022 07:38:15 pneumococcal polysaccharide PPV23 8 completed Not Available [facility] 11/14/2022 07:38:15 Pneumococcal conjugate PCV 13 5 completed Not Available [facility] 11/14/2022 07:38:15 Past Encounters Encounter ID Performer Location Encounter Start Date Encounter Closed Date Diagnosis/Indication Diagnosis SNOMED-CT Code Diagnosis ICD10 Code [id number] Eben Neil DPM [facility] [place] [address] [facility], [address] [id number] 03/08/2024 16:32:04 03/18/2024 15:19:26 Dystrophia unguium [id number] L60.3 Unable to cut own toenails [id number] Z74.1 Health Concerns Section Related Observation LastModified by Organization Detai ls LastModified Time None Recorded Concern Status LastModified by Organization Details LastModified Time None Recorded Payers Encounter Date Sequence Insurance Name Policy Number Policy Murillo Covered Member ID Murillo Member ID Guarantor Name 03/08/2024 1 [facility] (MEDICARE REPLACEMENT/A DVANTAGE - HMO) [id number] [employer] [id number] [employer] Notes Date Note Type Note Provider Name and Address Organization Details Recorded Time 03/08/2024 text/html . Patient is a 68-year-old female who returns for elongated painful toenails. Patient states she can not cut her toenails would like to have them cut. Patient denies any other complaints. Eben Neil DPM [address] [facility] [address], [place], [address], [facility] [employer] 03/09/2024 13:58:32 OBGyn Episode No OBEpisode recorded.
--- NOTE | 2024-04-09 18:46 | P.SLEEP_ITS ---
Sleep Study Date of Study: 03/17/24 Ordering Provider: Dimitri Parry, Interpreting Physician: Louisa Silva DO Sleep Study Type: Split Polysomnogram Height: 1.65 m Weight: 77.111 kg Body Mass Index: 28.3 Neck Circumference (inches): 17 [place]: 17 Reason for Sleep Study Daytime hypersomnia Sleep History The patient is a 68-year-old female that had a sleep study ordered by her primary care physician for evaluation of sleep apnea. The patient occasionally awakens from sleep short of breath. She occasionally awakens at night with heartburn, belching or cough. She constantly snores loudly enough that others complain. She frequently has trouble sleeping when she has a cold. She occasionally wakes up gasping for air throughout the night. She occasionally has breathing problems at night observed by herself or others. She denies sweating excessively at night. She rarely has heart palpitations or irregular heartbeats during the night. She constantly falls asleep during the day but rarely while driving. She denies sleep paralysis, cataplexy and hypnagogic / hypnopompic hallucinations. He rarely has trouble at school or work due to sleepiness. She denies feeling afraid of going to sleep. She denies having nightmares. She occasionally remembers her dreams. She rarely has thoughts racing through her mind. She occasionally feels sad, depressed and anxious. She denies having muscular tension. She denies noticing parts of her body jerk. She rarely kicks during the night. She rarely has crawling and aching feelings in her legs and rarely has leg pain during the night. She denies grinding her teeth during sleep and denies awakening with morning jaw pain. She is occasionally bothered by pain during the day and occasionally awakened by pain during the night. She occasionally wakes up feeling stiff in the morning. She occasionally wakes up with sore or achy muscles. She occasionally wakes up with pain in the neck, spine or other joints. She goes to bed at 8:00 p.m. on both weekdays and weekends. She wakes up 3 times throughout the night to urinate and is able to fall back asleep within 30 minutes. She wakes up between 5-8 a.m. on both weekdays and weekends. The patient typically gets 5-10 hours of sleep per night. She will stay in bed for a few hours after waking up in the morning. She currently lives with her daughter and samira roblero. She denies consuming any caffeinated beverages within 2 hours of bedtime. She denies engaging in physical exercise before bedtime. She will watch television before falling asleep. She will take naps in the afternoon or the evening but they are not refreshing. She consumes 32 oz of caffeinated beverage per day. She currently smokes 1 pack of cigarettes per day. She denies alcohol and recreational drug use. Sleep Procedure A full night split study using the [employer] multi-channel system recorded the standard physiologic parameters including EEG, EOG, submentalis EMG, anterior tibialis EMG, EKG, body position, nasal and oral airflow using nasal pressure sensor and thermistor.? Respiratory parameters of chest and abdominal movements were recorded with Respiratory Inductance Plethysmography belts. Oxygen saturation was recorded by pulse oximetry. Video monitoring was also performed. Sleep stages, periodic limb movements, and EEG arousals were scored in 30 second epochs according to the criteria of the AASM Scoring Manual. The Apnea-Hypopnea Index was calculated using CMS guidelines for definition of hypopnea with 4% O2 desaturations while scoring respiratory events. Sleep Architecture During the diagnostic portion of the study, the total recording time was 182.5 minutes. The total sleep time was 125.0 minutes. Sleep latency was 18.9 minutes.? REM latency was 82.0 minutes. Sleep Efficiency was 68.5%. The patient had 34 awakenings for an awakening index of 16.3. Wake after sleep onset time was 38.0 minutes. The patient spent 32.0 minutes, 25.6% of total sleep time in Stage N1. The patient spent 67.0 minutes, 53.6% in Stage N2. The patient spent 0.0 minutes, 0.0% in Stage N3. The patient spent 26.0 minutes, 20.8% in Stage REM sleep. At 01:46:19 AM the patient was placed on PAP treatment and was titrated at pressures ranging from 5 cm H20 up to 8 cm H20. During the treatment portion of the study, the total recording time was 272.3 minutes.? The total sleep time was 208.0 minutes. Sleep latency was 22.0 minutes. REM latency was 47.0 minutes. Sleep Efficiency was 76.4%. Wake after Sleep Onset time was 42.0 minutes. The patient spent 33.5 minutes, 16.1% of total sleep time in Stage N1. The patient spent 100.0 minutes, 48.1% in Stage N2. The patient spent 1.0 minutes, 0.5% in Stage N3. The patient spent 73.5 minutes, 35.3% in Stage REM. Respiratory Analysis During the diagnostic portion of the study, the patient had 39 hypopneas and 4 obstructive apneas for an overall Apnea Hypopnea Index of 20.6 events per hour. The REM Apnea Hypopnea Index was 55.4. The NREM Apnea Hypopnea Index was 12.7. The patient had a Central Apnea Hypopnea Index of 0. There was no evidence of Collin-Swanson Respirations. During the treatment portion of the study, the patient had 12 hypopneas and 18 obstructive apneas for an overall Apnea Hypopnea Index of 8.7 events per hour. The REM Apnea Hypopnea Index was 5.7. The NREM Apnea Hypopnea Index was 10.3. The patient had a Central Apnea Hypopnea Index of 0. There was no evidence of Collin-Swanson Respirations. The patient was started on CPAP 5 cm H2O and titrated to CPAP 8 cm H2O due to hypopneas. The patient was able to fall asleep starting on CPAP 5 cm H2O. The patient was able to achieve REM sleep starting on CPAP 5 cm H2O. The patient's sleep apnea resolved on the final pressure setting. On CPAP 8 cm H2O, the patient spent 72.5 minutes in NREM and 47 minutes in REM with 5 hypopneas, resulting in an AHI of 2.5. The patient had a sleep efficiency of 88.5% on this pressure setting. Arousals During the diagnostic portion of the study, there were a total of 77 arousals for an arousal index of 37.0.? There were 7 respiratory arousals for an index of 3.4. There were 3 periodic limb movement arousals for an index of 1.4.? There we re 10 isolated limb movement arousals for an index of 4.8. There were 58 spontaneous arousals for an index of 27.8. During the treatment portion of the study, there were a total of 86 arousals for an index of 24.8.? There were 16 respiratory arousals for an index of 4.6. There were 9 periodic limb movement arousals for an index of 2.6.? There were 25 isolated limb movement arousals for an index of 7.2. There were 36 spontaneous arousals for an index of 10.4. Periodic Limb Movements During the diagnostic portion of the study, the patient had 17 isolated limb movements with an index of 8.2. The patient had 6 periodic limb movements with an index of 2.9. The patient had a total of 23 limb movements with a total limb movement index of 11.0. During the treatment portion of the study, the patient had 61 isolated limb movements with an index of 17.6. The patient had 81 periodic limb movements with an index of 23.4, which is elevated (normal < 15). The patient had a total of 142 limb movements with a total limb movement index of 41.0. Oximetry Data During the diagnostic portion of the study, the patient had an average oxygen saturation of 92.2% in wake with a minimum oxygen saturation of 77% and a maximum oxygen saturation of 96%. The patient had an average oxygen saturation of 91.9% in sleep with a minimum oxygen saturation of 80.0% and a maximum oxygen saturation of 97.0%. The patient had 54 oxygen desaturations resulting in an Oxygen Desaturation Index of 25.9. The patient spent 15.7 minutes, 8.8% of total sleep time with an oxygen saturation less than 88%. During the treatment portion of the study, the patient had an average oxygen saturation of 92.5% in wake with a minimum oxygen saturation of 84.0% and a maximum oxygen saturation of 98.0%. The patient had an average oxygen saturation of 92.8% in sleep with a minimum oxygen saturation of 83.0% and a maximum oxygen saturation of 98.0%. The patient had 44 oxygen desaturations resulting in an Oxygen Desaturation Index of 12.7. The patient spent 10.3 minutes, 3.8% of total sleep time with an oxygen saturation less than 88%. Snoring Profile Loud snoring was present intermittently throughout the baseline portion of the study. The snoring resolved once the patient was titrated to 8 cm H2O. Cardiac Profile The EKG lead showed normal sinus rhythm. No arrhythmias or premature beats were seen. During the diagnostic portion of the study, the average pulse rate was 66.4 bpm.? The minimum pulse rate was 55.0 bpm. The maximum pulse rate was 78.0 bpm. During the treatment portion of the study, the average pulse rate was 60.1 bpm.? The minimum pulse rate was 53.0 bpm. The maximum pulse rate was 71.0 bpm. EEG Profile No signs of seizure activity seen. Assessment and Plan Assessment and Plan (1) GABRIELLE (obstructive sleep apnea): Code(s): G47.33 - Obstructive sleep apnea (adult) (pediatric) Status: Acute Assessment and Plan: In the diagnostic portion of the study, the patient had an overall AHI of 20.6 with desaturation down to 80%. This is consistent with moderate sleep apnea. The patient was started on CPAP 5 cm H2O and titrated to CPAP 8 cm H2O due to hypopneas. The patient's sleep apnea resolved on the final pressure setting with a high sleep efficiency. I recommend that the patient be prescribed CPAP 8 cm H2O, size medium Resmed F20 full face mask, CPAP filters/tubing and heated humidity. This should be used with all episodes of sleep.? Compliance should be reviewed within 31-90 days of starting therapy for usage greater than 4 hours per night greater than 70% of the nights. The patient should be asked about symptoms such as?excessive daytime sleepiness, quality of sleep, decreased nocturia, increased?mental functioning such as memory, mood, and concentration. Data The data obtained during this sleep study is adequate for interpretation. Certification This sleep study has been reviewed by a board certified sleep medicine physician.
[2024-04-09 18:47] VITALS: BMI 28.3
== END 2024-03-18 07:34 | disposition home or self-care (01) ==
LOC: ANHCSM 09:24
PROVIDERS: Visit Provider Internal Medicine
DX: G47.33 Obstructive sleep apnea (adult) (pediatric) (principal); G47.9 Sleep disorder, unspecified
CPT/HCPCS: 95811

== ENCOUNTER 2024-03-25 15:08 | Outpatient (CLI) | payer MEDICARE, SELFPAY ==
--- NOTE | ~2024-03-25 | MM_ITS ---
EXAMINATION: MM screening анна BI w henok HISTORY: Screening mammogram TECHNIQUE: Bilateral craniocaudal and mediolateral oblique and left lateral medial 3-D tomosynthesis images were obtained and synthetic 2-D images were generated. CAD analysis was submitted and interpre maria elena. COMPARISON: No prior mammogram is available for comparison at this institution. BREAST PARENCHYMAL COMPOSITION: There are scattered areas of fibroglandular density. FINDINGS: There is an asymmetric approximately 9 mm opacity with microcalcifications in the posterior lower outer right breast. 3.8 mm circumscribed opacity in the lower outer left breast (mediolateral tomosynthesis image ). Diagnostic bilateral mammogram and breast ultrasound examination are recommended. Otherwise there no evidence of suspicious mass, calcification, or architectural distortion to suggest malignancy in either breast. IMPRESSION: 1. Asymmetric 9 mm opacity with microcalcifications, posterior lower outer right breast 2. Circumscribed 3.8 mm opacity at mid depth in the lower outer left breast Recommendation: Bilateral diagnostic mammography and breast ultrasound examination BI-RADS Category 0: Incomplete: Needs additional imaging evaluation. 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 Asymmetric 9 mm opacity with microcalcifications, posterior lower outer righ t breast 2. Circumscribed 3.8 mm opacity at mid depth in the lower outer left breast Recommendation: Bilateral diagnostic mammography and breast ultrasound examinat ion BI-RADS Category 0: Incomplete: Needs additional imaging evaluation.
== END 2024-03-25 15:09 | disposition home or self-care (01) ==
LOC: ANHIMG 15:12
PROVIDERS: PCP Internal Medicine; Visit Provider Internal Medicine
DX: Z12.31 Encounter for screening mammogram for malignant neoplasm of breast (principal); R92.8 Other abnormal and inconclusive findings on diagnostic imaging of breast
CPT/HCPCS: 77063; 77067

== ENCOUNTER 2024-05-24 11:37 | Outpatient (CLI) | payer MEDICARE, SELFPAY | END 2024-05-24 11:38 | disposition home or self-care (01) | LOC: ANHIMG 11:38 | PROVIDERS: PCP Internal Medicine; Visit Provider Internal Medicine | DX: R92.8 Other abnormal and inconclusive findings on diagnostic imaging of breast (principal) | CPT/HCPCS: 76642; 77062; 77066; G0279 ==